=== PATIENT | female | born 1945 | race African-American/Black ===

== ENCOUNTER 2024-02-26 13:27 | Outpatient (REF) | payer OTHER, SELFPAY ==
[2024-02-26 14:02] LABS: MANUAL DIFF FLAG NO
[2024-02-26 14:14] LABS: Basophils Percent Auto 0.4 % (0-2); Eosinophils Absolute Auto 0.2 X10*3/uL (0.0-0.4); Eosinophils Percent Auto 1.7 % (0-4); Hematocrit 40.5 % (37.0-47.0); Hemoglobin 13.2 g/dl (12.0-16.0); Imm Gran Abs Auto 0.05 X10*3/uL (0.00-0.03); Imm Gran Pct Auto 0.5 % (0.0-0.4); Lymphocytes Absolute Auto 2.1 X10*3/uL (1.2-4.9); Mean Corpuscular HGB Conc 32.6 g/dl (31.0-35.0); Mean Corpuscular Hemoglobin 28.3 pg (27.0-33.0); Mean Corpuscular Volume 86.7 fL (80.0-98.0); Mean Platelet Volume 9.1 fL (9.4-12.3); Monocytes Absolute Auto 0.8 X10*3/uL (0.1-1.2); Monocytes Percent Auto 7.3 % (2-11); Neutrophils Absolute Auto 7.3 x10*3/uL (2.0-8.3); Neutrophils Percent Auto 70.1 % (45-73); Platelet Count 288 X10*3/uL (160-400); Red Blood Count 4.67 X10*6/uL (4.20-5.50); Red Cell Distribution Width 13.3 % (11.0-16.0); White Blood Count 10.5 X10*3/uL (4.8-10.8)
[2024-02-26 14:48] LABS: Anion Gap 15 (12-20); Blood Urea Nitrogen 22 mg/dL (9-16); Calcium 10.5 mg/dL (8.4-10.2); Carbon Dioxide 27 mmol/L (22-29); Chloride 103 mmol/L (96-108); Estimated Glomerular Filt Rate 31; Glucose Random 127 mg/dL (60-115); Potassium 3.8 mmol/L (3.3-5.1); Sodium 141 mmol/L (135-145)
[2024-02-26 15:19] LABS: Vitamin B12 627 pg/mL (200-900)
== END 2024-02-26 13:28 | disposition home or self-care (01) ==
LOC: HO.LAB 13:27
PROVIDERS: Visit Provider Psychiatry & Neurology Neurology
DX: I63.9 Cerebral infarction, unspecified (principal)
CPT/HCPCS: 36415; 80048; 82607; 82746; 84443; 85025

== ENCOUNTER 2025-03-23 13:57 | Outpatient (AMB) | payer OTHER, SELFPAY ==
--- OUTSIDE RECORDS SUMMARY | 2024-08-14 08:37 | XMS_ITS | Continuity of Care Document ---
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 mellitus type 2 Immunizations Vaccine Date Status Comments COVID-19 Pfizer unknown Source: [facility] Fluzone High-Dose administered Source: New Immunization Record COVID-19 Pfizer administered Source: [facility] COVID-19 (Pfizer) administered Source: Ot her Provider Fluzone High-Dose administered Source: New Immunization Record Influenza, high dose, injectable, split virus, preservative free, Fluzone High-Dose administered Source: New Immuniz ation Record Influenza, injectable, quadrivalent, preservative free, split virus, 3 years and older, Fluzone Quad 2017-2018Y administered Source: N ew Immunization Record Influenza, high dose, injectable, split virus, preservative free, Fluzone High-Dose administered Source: New Immuniza tion Record Influenza, high dose, injectable, split virus, preservative free, Fluzone High-Dose administered Source: New Immuniza tion Record Pneumococcal polysaccharide PPV23 administered Source: New Immuniza tion Record Tdap administered Source: New Imm unization Record Zoster administered Source: New Imm unization Record Influenza, injectable, split virus, preservative free, 3 years and older Afluria 2 -2015 administered Source: New Immuniza tion Record pneumococcal conjugate vacci ne, 13 valent administered Source: New Immuniza tion Record Flu (split) (3 yrs or older) administered Note: stated had for 2013 in ; Source: Source Unspecified PPV administered Source: Other P rovider Payers Payer name Insurance type Covered libertarian ID Jeff gupta(s) [facility] Plan 16 [id number] [facility] 16 [id number] [facility] 16 [id number] [facility] 16 [id number] [facility] 16 [id number] [facility] 16 [id number] [facility] 16 [id number] [facility] 16 [id number] [facility] 16 [id number] [facility] 16 [id number] [facility] 16 [id number] [facility] 16 [id number] Social History Type Description Quantity Date Captured Comments Alcohol Use Details Unknown Caffeine Use Details Unknown Tobacco Use Status No Information Smoking Status No Information Sex Female Chief Complaint And Reason For Visit No Information Plan Of Treatment Date Type Action Status Goal Eye Exam. Due on due Goal DEXA Scan. Due on due Goal GFR. Due on due Goal Foot exam. Due on due Goal Dilated eye exam. Due on Nov due Goal H&P. Due on due Goal Dental Exam. Due on due Goal Eye Exam. Due on due Goal Dilated eye exam. Due on Oct due Goal Foot exam. Due on 5 due Goal GFR. Due on due Goal Dental Exam. Due on due Goal DEXA Scan. Due on due Goal DEXA Scan. Due on due Goal Dilated eye exam. Due on Oct due Goal Eye Exam. Due on due Goal Dental Exam. Due on due Goal Foot exam. Due on due Goal GFR. Due on due Goal GFR. Due on due Goal Dental Exam. Due on due Goal DEXA Scan. Due on due Goal Eye Exam. Due on due Goal Dilated eye exam. Due on Oct due Goal Foot exam. Due on due Goal Eye Exam. Due on due Goal GFR. Due on due Goal DEXA Scan. Due on due Goal Dilated eye exam. Due on Jun due Goal Dental Exam. Due on due Goal Foot exam. Due on due Goal DEXA Scan. Due on due Goal GFR. Due on due Goal Foot exam. Due on due Goal Dilated eye exam. Due on May due Goal Eye Exam. Due on due Goal Dental Exam. Due on due Goal GFR. Due on due Goal Eye Exam. Due on due Goal Foot exam. Due on due Goal DEXA Scan. Due on due Goal Dilated eye exam. Due on May due Goal Dental Exam. Due on due Goal Eye Exam. Due on due Goal DEXA Scan. Due on due Goal GFR. Due on due Goal Dilated eye exam. Due on May due Goal Foot exam. Due on due Goal Dental Exam. Due on due Goal DEXA Scan. Due on due Goal Foot exam. Due on due Goal GFR. Due on due Goal Dental Exam. Due on due Goal Dilated eye exam. Due on Apr due Goal Eye Exam. Due on due Goal GFR. Due on due Goal Eye Exam. Due on due Goal Dental Exam. Due on due Goal DEXA Scan. Due on due Goal Dilated eye exam. Due on Apr due Goal Foot exam. Due on due Goal Foot exam. Due on due Goal DEXA Scan. Due on due Goal Dilated eye exam. Due on Apr due Goal Eye Exam. Due on due Goal Dental Exam. Due on due Goal GFR. Due on due Goal GFR. Due on due Goal Foot exam. Due on due Goal Dental Exam. Due on due Goal Eye Exam. Due on due Goal DEXA Scan. Due on due Goal Dilated eye exam. Due on Apr due Goal Dilated eye exam. Due on Apr due Goal Eye Exam. Due on due Goal Foot exam. Due on due Goal DEXA Scan. Due on due Goal GFR. Due on due Goal Dental Exam. Due on due Goal Foot exam. Due on due Goal Dental Exam. Due on due Goal GFR. Due on due Goal Eye Exam. Due on due Goal Dilated eye exam. Due on Apr due Goal DEXA Scan. Due on due Goal Colonoscopy. Due on due Goal Foot exam. Due on due Goal Eye Exam. Due on due Goal DEXA Scan. Due on due Goal H&P. Due on due Goal GFR. Due on due Goal Dental Exam. Due on due Goal Dilated eye exam. Due on Mar due Goal Dilated eye exam. Due on Jan due Goal DEXA Scan. Due on due Goal GFR. Due on due Goal Colonoscopy. Due on due Goal Foot exam. Due on due Goal Dental Exam. Due on due Goal Eye Exam. Due on due Goal H&P. Due on due Goal Dilated eye exam. Due on Jan due Goal Foot exam. Due on due Goal GFR. Due on due Goal Colonoscopy. Due on due Goal Dental Exam. Due on due Goal H&P. Due on due Goal DEXA Scan. Due on due Goal Eye Exam. Due on due Goal GFR. Due on due Goal Colonoscopy. Due on due Goal Dilated eye exam. Due on Jan due Goal Eye Exam. Due on due Goal Foot exam. Due on due Goal Dental Exam. Due on due Goal H&P. Due on due Goal DEXA Scan. Due on due Goal Eye Exam. Due on due Goal DEXA Scan. Due on due Goal H&P. Due on due Goal Colonoscopy. Due on due Goal GFR. Due on due Goal Foot exam. Due on due Goal Dental Exam. Due on due Goal Dilated eye exam. Due on Jan due Goal GFR. Due on due Goal H&P. Due on due Goal Dental Exam. Due on due Goal Eye Exam. Due on due Goal Foot exam. Due on due Goal Colonoscopy. Due on due Goal Dilated eye exam. Due on Jan due Goal DEXA Scan. Due on due Goal Colonoscopy. Due on due Goal Eye Exam. Due on due Goal Influenza vaccine. Due on due Goal Foot exam. Due on due Goal GFR. Due on due Goal Dental Exam. Due on due Goal Dilated eye exam. Due on Dec due Goal DEXA Scan. Due on due Goal H&P. Due on due Goal Dilated eye exam. Due on Dec due Goal DEXA Scan. Due on due Goal GFR. Due on due Goal Colonoscopy. Due on due Goal Dental Exam. Due on due Goal Foot exam. Due on due Goal Eye Exam. Due on due Goal H&P. Due on due Goal Dilated eye exam. Due on Dec due Goal Foot exam. Due on due Goal Influenza vaccine. Due on due Goal GFR. Due on due Goal Dental Exam. Due on due Goal Eye Exam. Due on due Goal H&P. Due on due Goal Colonoscopy. Due on due Goal DEXA Scan. Due on due Goal H&P. Due on due Goal Dental Exam. Due on due Goal Influenza vaccine. Due on due Goal Foot exam. Due on due Goal Eye Exam. Due on due Goal GFR. Due on due Goal Dilated eye exam. Due on Nov due Goal DEXA Scan. Due on due Goal GFR. Due on due Goal Influenza vaccine. Due on due Goal Dental Exam. Due on due Goal Foot exam. Due on due Goal H&P. Due on due Goal Dilated eye exam. Due on Nov due Goal DEXA Scan. Due on due Goal Eye Exam. Due on due Goal H&P. Due on due Goal Eye Exam. Due on due Goal Dental Exam. Due on due Goal Dilated eye exam. Due on Nov due Goal DEXA Scan. Due on due Goal Foot exam. Due on due Goal Influenza vaccine. Due on due Goal GFR. Due on due Goal Foot exam. Due on due Goal Influenza vaccine. Due on due Goal DEXA Scan. Due on 4 due Goal Eye Exam. Due on due Goal Dilated eye exam. Due on Oct due Goal H&P. Due on due Goal Dental Exam. Due on due Goal GFR. Due on due Goal Dental Exam. Due on due Goal Eye Exam. Due on due Goal Foot exam. Due on due Goal Dilated eye exam. Due on Oct due Goal H&P. Due on due Goal GFR. Due on due Goal DEXA Scan. Due on 4 due Goal Influenza vaccine. Due on due Goal GFR. Due on due Goal Influenza vaccine. Due on due Goal Dilated eye exam. Due on Sep due Goal Foot exam. Due on due Goal Eye Exam. Due on due Goal Dental Exam. Due on due Goal H&P. Due on due Goal DEXA Scan. Due on 4 due Goal Dental Exam. Due on due Goal GFR. Due on due Goal H&P. Due on due Goal Foot exam. Due on 5 due Goal Eye Exam. Due on due Goal DEXA Scan. Due on 4 due Goal Dilated eye exam. Due on Sep due Goal Influenza vaccine. Due on due Goal Dilated eye exam. Due on Sep due Goal DEXA Scan. Due on due Goal Influenza vaccine. Due on due Goal Dental Exam. Due on due Goal Eye Exam. Due on due Goal GFR. Due on due Goal H&P. Due on due Goal Foot exam. Due on 5 due Goal Influenza vaccine. Due on due Goal Dental Exam. Due on due Goal Eye Exam. Due on due Goal DEXA Scan. Due on 4 due Goal GFR. Due on due Goal H&P. Due on due Goal Foot exam. Due on 5 due Goal Dilated eye exam. Due on Sep due Goal Foot exam. Due on 5 due Goal Dental Exam. Due on due Goal H&P. Due on due Goal Influenza vaccine. Due on due Goal Dilated eye exam. Due on Sep due Goal DEXA Scan. Due on 4 due Goal Eye Exam. Due on due Goal GFR. Due on due Goal Foot exam. Due on 5 due Goal Dilated eye exam. Due on May due Goal Eye Exam. Due on due Goal Dental Exam. Due on due Goal GFR. Due on due Goal H&P. Due on due Goal DEXA Scan. Due on due Goal Influenza vaccine. Due on due Goal Dental Exam. Due on due Goal Eye Exam. Due on due Goal H&P. Due on due Goal Dilated eye exam. Due on May due Goal GFR. Due on due Goal DEXA Scan. Due on due Goal Foot exam. Due on due Goal Influenza vaccine. Due on due Goal Influenza vaccine. Due on due Goal Foot exam. Due on due Goal H&P. Due on due Goal Dilated eye exam. Due on Apr due Goal Dental Exam. Due on 019 due Goal DEXA Scan. Due on due Goal Eye Exam. Due on due Goal Urine microalbumin. Due on due Goal GFR. Due on due Goal DEXA Scan. Due on due Goal Dilated eye exam. Due on Mar due Goal Influenza vaccine. Due on due Goal Dental Exam. Due on due Goal Urine microalbumin. Due on due Goal Foot exam. Due on due Goal Eye Exam. Due on due Goal H&P. Due on due Goal GFR. Due on due Goal GFR. Due on due Goal Foot exam. Due on due Goal Influenza vaccine. Due on due Goal Dental Exam. Due on due Goal Eye Exam. Due on due Goal H&P. Due on due Goal Dilated eye exam. Due on Feb due Goal Urine microalbumin. Due on due Goal DEXA Scan. Due on due Goal Dental Exam. Due on due Goal Dilated eye exam. Due on Oct due Goal Foot exam. Due on due Goal Eye Exam. Due on due Goal GFR. Due on due Goal H&P. Due on due Goal Urine microalbumin. Due on due Goal DEXA Scan. Due on due Goal Urine microalbumin. Due on due Goal Dilated eye exam. Due on Sep due Goal DEXA Scan. Due on due Goal Foot exam. Due on due Goal H&P. Due on due Goal Eye Exam. Due on due Goal GFR. Due on due Goal Dental Exam. Due on due Goal GFR. Due on due Goal Dental Exam. Due on due Goal DEXA Scan. Due on due Goal H&P. Due on due Goal Foot exam. Due on due Goal Urine microalbumin. Due on due Goal Eye Exam. Due on due Goal Dilated eye exam. Due on Jul due Goal GFR. Due on due Goal H&P. Due on due Goal DEXA Scan. Due on due Goal Dilated eye exam. Due on Jul due Goal Eye Exam. Due on due Goal Urine microalbumin. Due on due Goal Foot exam. Due on due Goal Dental Exam. Due on due Goal Foot exam. Due on due Goal H&P. Due on due Goal Eye Exam. Due on due Goal Urine microalbumin. Due on due Goal Dilated eye exam. Due on Jun due Goal GFR. Due on due Goal DEXA Scan. Due on due Goal Dental Exam. Due on due Goal Eye Exam. Due on due Goal H&P. Due on due Goal Dilated eye exam. Due on Jun due Goal Foot exam. Due on due Goal GFR. Due on due Goal DEXA Scan. Due on due Goal Urine microalbumin. Due on due Goal Dental Exam. Due on due Goal Urine microalbumin. Due on due Goal GFR. Due on due Goal Foot exam. Due on due Goal Dilated eye exam. Due on Jun due Goal DEXA Scan. Due on due Goal H&P. Due on due Goal Dental Exam. Due on due Goal Eye Exam. Due on due Goal GFR. Due on due Goal H&P. Due on due Goal Urine microalbumin. Due on due Goal Dilated eye exam. Due on May due Goal Foot exam. Due on due Goal Eye Exam. Due on due Goal Dental Exam. Due on 018 due Goal DEXA Scan. Due on due Goal H&P. Due on due Goal Dental Exam. Due on 018 due Goal Dilated eye exam. Due on May due Goal DEXA Scan. Due on due Goal Foot exam. Due on due Goal Urine microalbumin. Due on due Goal Eye Exam. Due on due Goal GFR. Due on due Goal Eye Exam. Due on due Goal DEXA Scan. Due on due Goal Dilated eye exam. Due on May due Goal GFR. Due on due Goal Dental Exam. Due on due Goal Foot exam. Due on due Goal H&P. Due on due Goal Dental Exam. Due on due Goal GFR. Due on due Goal Dilated eye exam. Due on Apr due Goal H&P. Due on due Goal Foot exam. Due on due Goal Eye Exam. Due on due Goal DEXA Scan. Due on due Goal Dilated eye exam. Due on Apr due Goal GFR. Due on due Goal DEXA Scan. Due on due Goal Foot exam. Due on due Goal Eye Exam. Due on due Goal Dental Exam. Due on due Goal H&P. Due on due Goal Eye Exam. Due on due Goal GFR. Due on due Goal Dilated eye exam. Due on Apr due Goal Foot exam. Due on due Goal Dental Exam. Due on due Goal H&P. Due on due Goal DEXA Scan. Due on due Goal Dilated eye exam. Due on Apr due Goal Foot exam. Due on due Goal DEXA Scan. Due on due Goal Dental Exam. Due on due Goal H&P. Due on due Goal Eye Exam. Due on due Goal GFR. Due on due Goal GFR. Due on due Goal Dilated eye exam. Due on Apr due Goal Eye Exam. Due on due Goal H&P. Due on due Goal Foot exam. Due on due Goal DEXA Scan. Due on due Goal Dental Exam. Due on due Goal GFR. Due on due Goal H&P. Due on due Goal Eye Exam. Due on due Goal DEXA Scan. Due on due Goal Foot exam. Due on due Goal Dilated eye exam. Due on Mar due Goal Dental Exam. Due on 017 due Goal DEXA Scan. Due on due Goal H&P. Due on due Goal GFR. Due on due Goal Dilated eye exam. Due on Feb due Goal Foot exam. Due on due Goal Eye Exam. Due on due Goal Dental Exam. Due on due Goal H&P. Due on due Goal Dilated eye exam. Due on Feb due Goal Dental Exam. Due on due Goal Eye Exam. Due on due Goal Foot exam. Due on due Goal DEXA Scan. Due on due Goal GFR. Due on due Goal Foot exam. Due on due Goal Dilated eye exam. Due on Feb due Goal GFR. Due on due Goal Dental Exam. Due on due Goal H&P. Due on due Goal DEXA Scan. Due on due Goal Eye Exam. Due on due Goal Dental Exam. Due on due Goal Dilated eye exam. Due on Nov due Goal Eye Exam. Due on due Goal H&P. Due on due Goal DEXA Scan. Due on due Goal GFR. Due on due Goal Foot exam. Due on due Goal Dilated eye exam. Due on Oct due Goal Dental Exam. Due on due Goal DEXA Scan. Due on 4 due Goal Foot exam. Due on due Goal Eye Exam. Due on due Goal GFR. Due on due Goal H&P. Due on due Goal H&P. Due on due Goal Eye Exam. Due on due Goal Foot exam. Due on due Goal Dental Exam. Due on due Goal DEXA Scan. Due on due Goal GFR. Due on due Goal Dilated eye exam. Due on Oct due Goal Foot exam. Due on due Goal Dilated eye exam. Due on August due Goal GFR. Due on due Goal DEXA Scan. Due on due Goal H&P. Due on due Goal Eye Exam. Due on due Goal Dental Exam. Due on due Goal Dental Exam. Due on due Goal Eye Exam. Due on due Goal DEXA Scan. Due on due Goal H&P. Due on due Goal Dilated eye exam. Due on Jun due Goal GFR. Due on due Goal Foot exam. Due on due Goal Dilated eye exam. Due on May due Goal Dental Exam. Due on due Goal Foot exam. Due on due Goal Eye Exam. Due on due Goal GFR. Due on due Goal DEXA Scan. Due on due Goal H&P. Due on due Goal Eye Exam. Due on due Goal Dilated eye exam. Due on May due Goal Foot exam. Due on due Goal GFR. Due on due Goal H&P. Due on due Goal Dental Exam. Due on due Goal DEXA Scan. Due on due Goal Dilated eye exam. Due on May due Goal GFR. Due on due Goal Eye Exam. Due on due Goal Foot exam. Due on due Goal H&P. Due on due Goal DEXA Scan. Due on due Goal Dental Exam. Due on due Goal Eye Exam. Due on due Goal H&P. Due on due Goal DEXA Scan. Due on due Goal Dental Exam. Due on due Goal Dilated eye exam. Due on Apr due Goal GFR. Due on due Goal Foot exam. Due on due Goal Dilated eye exam. Due on Apr due Goal Eye Exam. Due on due Goal Dental Exam. Due on due Goal DEXA Scan. Due on due Goal GFR. Due on due Goal Foot exam. Due on due Goal H&P. Due on due Goal H&P. Due on due Goal Dilated eye exam. Due on Apr due Goal Foot exam. Due on due Goal GFR. Due on due Goal Eye Exam. Due on due Goal Dental Exam. Due on due Goal DEXA Scan. Due on due Goal GFR. Due on due Goal Eye Exam. Due on due Goal Dilated eye exam. Due on Feb due Goal Foot exam. Due on due Goal Dental Exam. Due on 016 due Goal H&P. Due on due Goal DEXA Scan. Due on due Goal Dilated eye exam. Due on Nov due Goal Foot exam. Due on due Goal GFR. Due on due Goal H&P. Due on due Goal Eye Exam. Due on due Goal Dental Exam. Due on 016 due Goal DEXA Scan. Due on due Goal H&P. Due on due Goal Eye Exam. Due on due Goal Dilated eye exam. Due on August due Goal GFR. Due on due Goal Foot exam. Due on due Goal DEXA Scan. Due on due Goal Urine microalbumin. Due on due Goal Dental Exam. Due on due Goal Dental Exam. Due on due Goal Urine microalbumin. Due on A due Goal Foot exam. Due on due Goal H&P. Due on due Goal DEXA Scan. Due on due Goal Eye Exam. Due on due Goal Dilated eye exam. Due on Jul due Goal GFR. Due on due Goal DEXA Scan. Due on due Goal Urine microalbumin. Due on A due Goal Dental Exam. Due on due Goal GFR. Due on due Goal Foot exam. Due on due Goal Dilated eye exam. Due on Jul due Goal Eye Exam. Due on due Goal H&P. Due on due Goal Dilated eye exam. Due on Jul due Goal Foot exam. Due on due Goal Eye Exam. Due on due Goal GFR. Due on due Goal Dental Exam. Due on due Goal Urine microalbumin. Due on A due Goal DEXA Scan. Due on due Goal Dilated eye exam. Due on May due Goal GFR. Due on due Goal Urine microalbumin. Due on due Goal DEXA Scan. Due on due Goal Dental Exam. Due on due Goal Foot exam. Due on due Goal Eye Exam. Due on due Goal Eye Exam. Due on due Goal Foot exam. Due on due Goal Dental Exam. Due on due Goal Urine microalbumin. Due on due Goal GFR. Due on due Goal Dilated eye exam. Due on May due Goal DEXA Scan. Due on due Goal Foot exam. Due on due Goal GFR. Due on due Goal Eye Exam. Due on due Goal DEXA Scan. Due on due Goal Dental Exam. Due on 016 due Goal Dilated eye exam. Due on May due Goal Urine microalbumin. Due on due Goal Dental Exam. Due on 016 due Goal Urine microalbumin. Due on due Goal Eye Exam. Due on due Goal GFR. Due on due Goal Foot exam. Due on due Goal Dilated eye exam. Due on May due Goal DEXA Scan. Due on due Goal Dilated eye exam. Due on Mar due Goal DEXA Scan. Due on due Goal Foot exam. Due on due Goal Urine microalbumin. Due on due Goal GFR. Due on due Goal Eye Exam. Due on due Goal GFR. Due on due Goal Td vaccine. Due on due Goal DEXA Scan. Due on due Goal Dilated eye exam. Due on Feb due Goal Eye Exam. Due on due Goal Urine microalbumin. Due on due Goal Foot exam. Due on due Goal DEXA Scan. Due on due Goal GFR. Due on due Goal Urine microalbumin. Due on due Goal Foot exam. Due on due Goal Eye Exam. Due on due Goal Dilated eye exam. Due on Dec due Goal Td vaccine. Due on due Goal DEXA Scan. Due on due Goal Eye Exam. Due on due Goal GFR. Due on due Goal Urine microalbumin. Due on due Goal Td vaccine. Due on due Goal Dilated eye exam. Due on Dec due Goal Foot exam. Due on due Goal Urine microalbumin. Due on A due Goal DEXA Scan. Due on due Goal Td vaccine. Due on due Goal Eye Exam. Due on due Goal Foot exam. Due on due Goal GFR. Due on due Goal Dilated eye exam. Due on Nov due Goal GFR. Due on due Goal Urine microalbumin. Due on A due Goal Td vaccine. Due on due Goal Eye Exam. Due on due Goal Dilated eye exam. Due on Nov due Goal DEXA Scan. Due on due Goal Foot exam. Due on due Goal Dilated eye exam. Due on Oct due Goal GFR. Due on due Goal Foot exam. Due on due Goal Urine microalbumin. Due on due Goal Td vaccine. Due on due Goal DEXA Scan. Due on due Goal Eye Exam. Due on due Goal Diabetes screening due Goal DEXA Scan. Due on due Goal Foot exam. Due on due Goal GFR. Due on due Goal Dilated eye exam. Due on Oct due Goal Td vaccine. Due on due Goal Urine microalbumin. Due on due Goal Eye Exam. Due on due Goal Td vaccine. Due on due Goal Eye Exam. Due on due Goal GFR. Due on due Goal Dilated eye exam. Due on Oct due Goal Urine microalbumin. Due on due Goal DEXA Scan. Due on due Goal Foot exam. Due on due Goal Hemoglobin A1C. Due on due Goal Dilated eye exam. Due on Oct due Goal Urine microalbumin. Due on due Goal DEXA Scan. Due on due Goal GFR. Due on due Goal Tdap. Due on due Goal Foot exam. Due on due Goal Foot exam. Due on due Goal Urine microalbumin. Due on due Goal Dilated eye exam. Due on Oct due Goal GFR. Due on due Goal DEXA Scan. Due on due Goal Tdap. Due on due Goal Foot exam. Due on due Goal Dilated eye exam. Due on Sep due Goal Tdap. Due on due Goal GFR. Due on due Goal Urine microalbumin. Due on due Goal DEXA Scan. Due on due Goal Hemoglobin A1C. Due on due Goal Hemoglobin A1C. Due on due Goal DEXA Scan. Due on due Goal Tdap. Due on due Goal Dilated eye exam. Due on Sep due Goal Urine microalbumin. Due on due Goal Foot exam. Due on due Goal GFR. Due on due Goal Hemoglobin A1C. Due on due Goal GFR. Due on due Goal Tdap. Due on due Goal PPV-23 due Goal Foot exam. Due on due Goal DEXA Scan. Due on due Goal Dilated eye exam. Due on Sep due Goal Urine microalbumin. Due on due Goal DEXA Scan. Due on due Goal Tdap. Due on due Goal Urine microalbumin. Due on due Goal Dilated eye exam. Due on Sep due Goal GFR. Due on due Goal Foot exam. Due on due Goal Hemoglobin A1C. Due on due Goal Foot exam. Due on due Goal GFR. Due on due Goal Hemoglobin A1C. Due on due Goal Urine microalbumin. Due on due Goal DEXA Scan. Due on due Goal Tdap. Due on due Goal Dilated eye exam. Due on Sep due Goal GFR. Due on due Goal Hemoglobin A1C. Due on due Goal Urine microalbumin. Due on due Goal DEXA Scan. Due on due Goal Dilated eye exam. Due on August due Goal Tdap. Due on due Goal Dilated eye exam. Due on August due Goal GFR. Due on due Goal Urine microalbumin. Due on due Goal Hemoglobin A1C. Due on due Goal DEXA Scan. Due on due Goal Tdap. Due on due Goal Urine microalbumin. Due on due Goal Hemoglobin A1C. Due on due Goal DEXA Scan. Due on due Goal Tdap. Due on due Goal Dilated eye exam. Due on August due Goal GFR. Due on due Goal Hemoglobin A1C. Due on due Goal GFR. Due on due Goal DEXA Scan. Due on due Goal Urine microalbumin. Due on due Goal Tdap. Due on due Goal Dilated eye exam. Due on August due Goal Dilated eye exam. Due on August due Goal GFR. Due on due Goal Urine microalbumin. Due on due Goal Tdap. Due on due Goal DEXA Scan. Due on due Goal Dilated eye exam. Due on Jul due Goal Tdap. Due on due Goal Urine microalbumin. Due on A due Goal Hemoglobin A1C. Due on due Goal GFR. Due on due Goal DEXA Scan. Due on due Goal Urine microalbumin. Due on A due Goal Hemoglobin A1C. Due on due Goal GFR. Due on due Goal Tdap. Due on due Goal DEXA Scan. Due on due Goal Dilated eye exam. Due on Jul due Goal DEXA Scan. Due on due Goal Tdap. Due on due Goal GFR. Due on due Goal Urine microalbumin. Due on A due Goal Dilated eye exam. Due on Jul due Goal Hemoglobin A1C. Due on due Goal DEXA Scan. Due on due Goal Hemoglobin A1C. Due on due Goal Urine microalbumin. Due on due Goal Tdap. Due on due Goal GFR. Due on due Goal Dilated eye exam. Due on Jun due Goal DEXA Scan. Due on due Goal Urine microalbumin. Due on due Goal GFR. Due on due Goal Dilated eye exam. Due on Jun due Goal Tdap. Due on due Goal Pneumococcal vaccine due Goal Hemoglobin A1C. Due on due Goal DEXA Scan. Due on due Goal Tdap. Due on due Goal Dilated eye exam. Due on Jun due Goal Urine microalbumin. Due on due Goal Hemoglobin A1C. Due on due Goal Pneumococcal vaccine due Goal GFR. Due on due Goal Dilated eye exam. Due on Jun due Goal DEXA Scan. Due on due Goal Urine microalbumin. Due on due Goal GFR. Due on due Goal Tdap. Due on due Goal Hemoglobin A1C. Due on due Referral Ordered: Referrals: Pain Medicine. 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 Evaluate and treat ordered Referral Ordered: COLONOSCOPY AND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 Positional Vertigo. Has a recorded h/o benign positional vertigo. MRI negative for CVA. She has started to work with our therapy department.No medications stopped or added.Today the ppt appears well. ALready seen by therapy this morning. No new episodes sof dizziness since discharge reported. dizziness, elevated BP 72 year o ld female seen today in the clinic for dizziness this morning with nausea, no vomiting. Has not taken her meds this morning because she thought shes might not keep them down. The ppt's daughter and granddaughter are here with ppt at this visit.ROS:Denies any new pain. Recent steroid injection for her spine with good efect.Apprtite is less today d/t the nausea.Denies any headache. No pain in the eyes, some light sensitivity noted. No numbness or tingling of the face, jaw or extremities.Does not feel that the roomis spinning. Noworsening of dizziness with movement of her eyes or repositioning of he headNo report of shortness of breath or wheezing. No runny nose or tearing from the eyes. No sneezing. or sore throat. No difficulty swallowing. No change in phonation.No chest painor pressure.No abdominal pain. Has occasional nausea, no vomiting. No diarrhea or constipation.No new onset of incontinence. No reported falls.No swelling in the legs or ankles.PE:VS taken by poultry scalder-those values placed in the chart. Retook the BP on the left arm sitting with 178/92NAD. Alert, pleasant and cooperative. Makes eye contact and responses are consistent with the interview and exam. Color is good. Hygiene is apprrpriate.Atraumatic facies. CN grossly intact. Smile is symmetrical.Eyes are symmetrical. SClera are without injection, anicteric. Conjunctivae are pink, no discharge. EOMs ar eintact. Pupils are equally repsonsive to light bilaterally. No NystagmusOral mucosa is moist, no lesions. Tongue is midline, no tremors. Pharynx is without redness, no exudates.The heart rate and rhythm are regular. No murmus noted. Carotid pulses auscultated, no bruits noted.Respirations are nornal. No accessory muscle use is noted. Breath sounds are clear to auscultation in all weber. No crackles or wheezes are noted.The abdomen is soft, non-tender, non-distended. No plapble masses. Bowel sounds are present, no bruits auscultated.No LE edema. Peripheral pulses are palpableUsing a cane. Gait is slightly unsteady when first standing up. Annual 72 year old jennifer le seen today for her Annual evaluation and review of Chronic Conditions. Ms. العراقي resides independently in the community in [place], [place]. She enrolled with [employer] in May of 2014. She attend the day program onT.Anisha has not accessed the ED, no hospitalizations and no reported falls inthe past 6 months.She has a Pain Clinic Appointment 06/09/2018 to evaluate benefit of the steroid injection for her backSeen by Dr. Del Valle 07/2017, will need annual evaluation, referral placed.Was re-evaluated by [facility] for C-PAP equipment and mask fit. Reprots that she is now using the C-PAP at night with benefitSeen by [facility] for dental 12/18/17, Has missing dentition, but is not wanting full extraction for dentures.Last seen by Audiology 2014. Has bilateral hearing aids, but does not always wear them.Immunizations on file include:Influenza vaccine administered 01/30/2018Pneumococcal series is completeTdap administered 04/07/2015Zostrix vaccine administered 03/17/2015Healthcare proxy completed 05/12/2014 lists her son Vazquez العراقي as her primery healthcare agent and her sister Allison Roman as her alternate healthcare proxyMA MOLST document dated 11/21/2017 indicates preferences for Full Code status with short trials of ventilation, dialysis, artificial nutritionand artificial hydration.Goals for this next 6 months include contiued stabilization of her depression and a goal of pain control between 3-10 fo rher back pain. Follow Up of depression This is a follow up visit. The date of the initial visit for this episode was 02/27/2018. The first episode occurred in pre-. The symptoms occur intermittently. Related symptoms are fairly controlled. There is improvement of initial symptoms. There is no continuation of initial symptoms or worsening of previously reported symptoms. The patient reports functioning as not difficult at all. The patient presents with depressed mood, difficulty concentrating, diminished interest or pleasure and racing thoughts but denies anxious/fearful thoughts, compulsive thoughts, decreased need for sleep, difficulty falling asleep, difficulty staying asleep, easily startled, excessive worry, fatigue, feelings of guilt, feelings of invulnerability, increased energy, hallucinations,decreased libido, increased libido, loss of appetite, paranoia, poor judgment, restlessness or thoughts of or suicide. The patient's risk factors include chronic illness, of a friend or loved one, family history of depression, financial worries and history of depression. The patient's risk factors exclude alcoholism, childhood abuse or neglect, drug abuse, family history of anxiety, family history of bipolar disorder, history of suicidal attempts, medications, recent childbirth, relationship problems, social isolation, unemployment and victim of abuse or violence. The Follow Up of depression is aggravated by conflict or stress and family concerns but not with alcohol use, drug use, lack of sleep, menstruation, social interactions, traumatic memories or winter season. The patient's relieving factors are medication (increased anti-depressant), sunlight, orthodox and interaction with family.The patient's symptoms are not relieved by alcohol, cessation of menses, drugs or exercise. The patient denies any chronic pain, headache, irritability, nausea, sweating, trembling, urinary frequency, vomiting and weight gain. Additional information: Ppt had had a of a sibling, one sibling [facility] and one with mental illness placed in a half-way. recent worsening depression 72 y ear old female seen in the clinic for self-reported increase in depressive symptoms.goldie was lying ont bed eyes closed when I entered the exam room.Repositions herself to a sitting positionDenies any SI/HI/AH/VHReports that a sister who lives [facility] has been hospitalized for medical and psychiatric concerns. Will now need permanent placement as the ppt's sister is unable to manage on her own [facility]. Last seen by ppt about 1 and a massiel years ago.Also mentions that she has some financial concerns, reluctant to discuss fully.Has agreed to see SWIs interested in increasing her current effexor dose Semi Annual 72 year old jennifer vera seen in the clinic for her Semi-Annual Evaluation and review of Chronic Conditions. Ms. العر[facility]قي [facility] [place]. She enrolled with [employer] in May 2014No ED visits, hospitalizations or falls in the past 6 months.She has been seen in f/u with [facility] for dental 05/29/2017. [place] dentition with multiple missing teeth. Not clear if ppt would want extraction of her remianing teeth to obtain dentures. She will let us know.Evaluated by Sleep clinic 10/2014-ppt is not interested in using a C-PAP machine or being evaluated again at this time.Sees Dr. Del Valle-have requested more recent notes.Seen at [facility] clinic. Last SI injectionon the right was 09/05/2017-needs f/u appointmentEvaluated by Audiology 09/2014-no need for hearing aids-barreto snot feel the need to pursue additonal evaluation at this time.Immunizations on record include:Influenza vaccine administered 01/17/2017Pneumococcal series is completeTdap administered 04/07/2015Zostrix administered 03/17/2015Health care proxy dated 05/12/2014 indicates that her son Vazquez العراقي is her primary healthcare agent and her sister Allison Roman is her alternate healthcare agent. [place] MOL document revised today. Preferences for future medical interventions are for Full Code Ststus with short term use of ventilatory support, artificial nutritionand artificial hydration. She would also want dialysis.Goals for the next 6 onth include remaining pain free so that she is functional and possible evaluation for dental care (including the possibility of dentures). f/u Patient comes to clinic for low back pain. She has had low back pain in the past. She developed pain within the past 4 or 5 days the weekend. There was no acute trauma or injury involved. The pain was initially severe and she needed to use a walker instead of her cane. She instituted rest, heat and added Naprosyn in addition to her Tylenol. She indicates that her pain has significantly improved since the episode began. She has not recently worked with physical therapy for back issues. Follow Up of back pain Annual 71 year old jennifer vera seen today in the clinic for her Annual Evaluation and review of Chronic Conditions. Ms. العراقي lives independently in the community in [place], [place]. SHe enrolled with [employer] in May 2014.There have been no ED visits, hospitalizations or reported falls inthe past 6 months.Seen in follow up with Dr. Del Valle for monitoring of visionAppointment with oral surgery 05/29/2017Immunizations on file include:Influenza vaccine administered 01/08/2017Pneumococcal series is completeTdp administered on 04/07/2015Zovirax administered 03/17/2015Healthcare proxy on file of 05/12/2014 indicates that Vazquez العراقي (son) is her primary healthcare agent and Allison Khan (dtr) is her alternate healthcare agent. [place] MOLST document dated 06/17/2014 indicates preferences for Full COde status. Second side in blank. We discussed [facility] intent and content of the MOLST form. Ppt was given a blank copy to take home and to review. We discussed dialysis, artificail nutrition and hydration as they might relate to her current health status and her reported goals of care. Will make a f/u appointment to discuss, review, answer questions and potential complete a new document in the next few weeks.Today, the ppt continue to reprot right hip pain and left shoylder pain. Has trialed OTC medications to manage the discomfort an d pain. Ppt is interested in pursuing a consult with the Pain clinic to explore the psosibility of steriod injections.Ppt goals include remaining independent in the community. SHe will acheive these goals by remaining as active in her ADLs as she is able. ain in her left wris t and left shoulder 71 year old female seen in clinic today for report of increased pain in the left wrist and left shoulder. She does not feel that they are related. No new injury. Also mentions that her right hip has times of increased pain. H/O steroid injection for the right hip at [place] with good effect.ROS:Descibes pain at worst at a 9/10; currently painis rated as a 4/10.No radiation of pain from the wrist, shoulder or hipDescribes pain as sharp and achyNo reported change or increased limitations to peform ADLs. No change in ambulatory status. Uses a cane (which she carries in her right hand)Denies any nubness or tingling of julián left wrist, shoulder or right hipNo loss of sensation of the left hand or arm. No loss of sensation of the right leg or foot.PE:NAD. Alert, cooperative. Responses appear to be appropriateLeft wrist and shoulder are not warm to palpation, no inflammation noted. Ppt is able to flex, extend, invert and fred the wrist. hand grasp is 4/5Left soulder is free of warmth or inflammation. ROM is equal and intact. Able to extend upper arms, place above her head, reach behind the head and the lower back without evidence of discomfort. No increase in pain report, no facial grimacingPalpation of the forarm, neck and upper back provide no evidence of tenderness or acute injury.Right hip and lower back are free of warmth, erythema, ecchymosis or inflammation. Negative straight leg raise. Chronic Conditions *See Chronic Conditions HPI Semi annual Anisha is seen i n the clinic for her semi annual assessment s/p [facility]. She attends 1x weekly on . She is independent with ambulation and ADLs. She uses a single point cane. She receives 1x weekly homemaking services, but no home health aide services. She has not had any falls, ED visits, hospitalizations or SNF stays over the last 6 months. She recently returned from a trip to [place] with her son, daughter in law and grandchildren. She was last seen in the clinic by my colleague approximately one month ago for c/o sudden onset back pain. She was treated with NSAIDs and muscle relaxers. She states that her back pain has significantly improved and is no longer problematic. She has intermittent bilateral knee pain secondary to OA, but states this is also manageable right now. She used a wheelchair on vacation to transport around the [place]. She was seen by orthopedics in October 2016 for R hip pain. She will schedule injections are her convenience. Hx of epistaxis, also improved. She had one minor nose bleed last week that was short in duration. Hx of NIDDM DM, diet controlled. She states she hasn't been checking her FSBS "as often as she should , 2-3x weekly at different times of the day. Overall, they have been pretty good with her highest reading at 130. Her A1c has been steadily decreasing since November 2015. Last A1c October 2016 was 6.6%. Anisha states that she has been more aware of her intake of sweets and is eating more fruit. She states she no longer buys treats such as ice cream to keep in her home. Last eye exam in EHR June 2015. Last dental exam 2014. Ppt reports that she recently lost a filling in her L upper quadrant last week and would like to see a dentist NATY. Due for repeat colonoscopy 2018. Last mammogram July 2016 was normal. Increased Back Pain Anisha comes to clinic with a chief complaint of low back pain which has been ongoing over the past 3 weeks. She has had 2 episodes during this time. Both episodes were brought on by bending down to pick something up. There was no other notable trauma. She reports that the back pain was initially very severe so that she was not able to get around at home and she considered the need for a walker. She chronically uses a cane for her hip pain. The low back pain was not associated with radiation, paresthesia, weakness or incontinence. She has been using Tylenol, a BenGay patch and naproxen. There has been some improvement over the past few days but the pain is still severe. She has had previous back pain but nowhere near as severe and debilitating. Follow Up of 4 month 4 month f/u Anisha comes to clinic for follow-up. She is feeling generally well. She is taking her medications as directed. She has no complaints of chest pain, shortness of breath or acute focal neurologic symptoms. In recent months she is performed blood work. In May A1c was 6.8. LDL was 1:30. Since then her statin was changed. She has been more mindful of her diet. BMP had a creatinine of 1.0. GFR was 65. Patient reports that she has an appointment today for her chronic right pain. She reports that the epistaxis that she previously complained about has stopped since discontinuing the Flonase. She indicates that her depression is okay but there is a situational component. She has not found that many things to do since leaving [place]. However, she was recently told about a social group that she might be interested in. Also she is interested in learning how to swim because her son has a pool Nosebleeds Ppt is seen in t he clinic for c/o moderate epistaxis that occurs daily and lasts about ten minutes, typically out of the L nare. She denies precipitating factors and states she can drip bright red blood throughout the day. She denies pain or known injury, She uses saline and flonase daily as well as clartin for poorly controlled seasonal allergies. Her allergic sx include sinus pressure and PND. No ocular symptoms, sneezing, cough or SOB.Her other primary complaint is ongoing, chronic, generalized pain secondary to OA. Her R hip is most bothersome, but she also experiences pain in the L shoulder, wrist and knee. Her R hip pain has steadily increased over the last couple of months and is aggravated by cold, rainy weather. She uses a single point cane for ambulation and does not have a hx of falls. She reports receiving a cortisone injection to R hip prior to joining 2 years ago and had relief for approximately 5 weeks. She is interested in another injection. She also uses BenGay patch with some relief. Medication list reviewed. Of note, she was recently starting on atorvastin 40mg in May 2016. Her last A1c was 6.8%, also in May. She is not currently receiving any treatment for DM. She is no longer taking meclizine. f/u depression f/u depressioin. last visit increased venlafaxine because of depressed mood. pt reports today that her mood is significantly improved. comfortable with current dose. no residual symptoms reported.last visit change her atorvastatin because ldl was 130, not at goal. toleratinglast visit a1c noted to be 6.8. taking meds annual annual eval and care planning. recent brbpr. suspected hemorrhoidal bldg. referral to surgery for eval and treat. otherwise no hosp, ed visits, snf stays, surg, falls, new meds, fxn decline or cognitive changes. continues to live in the community. updating chronic conditions. htn stable and no cp/sob/palp/pnd./orthopnea/suri. hyperlipidemia. ldl last 115. t/c changing statin b/c not at goal for dm.obesity. wt essentially unchangeddm with mild nephropathy. last a1c 7.1 in november. repeat a1c, cmp, flp and microalbumin. spot on left heel slightly numb.cva with mild cognitive deficit. stable. risk factors being addressed.murmur. not heard on auscultationckd. mild. gfr in 60's. no intervention requiredosa not using cpap. could not tolerate.gerd. not needing ppi. only tums prncolon polyp. due for colonoscopy 2019ddd/ss/oa manging with otc meds.bpv. not needing meclizinedepression. after cva. interested in d/c antidepressantinsomnia. zolpidem prn.[place] stablecataracts. s/p surg. no c/o. rectal bleeding f/u rectal bldg rectal bldg last visit. bleeding resolved that same day. no recurrent bldg. pt whooziness resolve that day also. no bm over the last 3 days. used otc laxative.pt also reports repeated epistaxis. this has been an ongoing issue. was rx'd nasal steroids in the past. rectal bldg rectal bldg firs t episode last week assoc w/ constipation. another episode today. bldg heavier today and assoc with some lightheadedness. both episodes self limited. pt did have rectal pain from the constipation. typically she has regular bm daily. fh colon cancer. utd w/ colonoscopy- h/o colon polyp and hemorrhoids. hip pain Anisha is in wit h c/o right hip pain but points to her right SI area and right buttock area. she reports a long hx of such pain and has dx of lumbar spinal stenosis and lumbar DJD. she denies any right leg or thigh pain. she notes some occ numbness in the left heel. she has a hx of hemorrhagic stroke in 2000 that she believes affected her memory and is frustrated that her memory remains a problem for her, although she does not believe it is any worse. she reports a hx of a steroid injection into the low back a few years ago at [facility]; she believes it was done under xray guidance. she also reports that she ran out of her [place] patches that she places daily on her right low back and that help her. Hip pain Ppt seen in the clinic for c/o chronic, 510 R posterior hip/low back pain. Prior to joining , she reports hx of xrays which showed OA to R hip. She reports difficulty sleeping at times due to pain. She typically treats her pain with topical analgesics, hot/cold treatments and tylenol ES. She reports hx of previous injection to R hip, after which she received 5 weeks or pain relief. She states this was the first time she was pain free in years. She is requesting a repeat injection. She lives alone in senior housing. She is not currently receiving PT/OT. She ambulates with a cane. She has not had any recent falls or injuries. Follow Up of nosejuaned Bala singh information: woke up yesterday AM w/blood crusted in both nostrils L>R. no active bleeding. had the same episode this am. PMH epistaxis off and on for the past year. Sleeps with the window cracked and heat low. Has Seasonal Allergies on Flonase, was also on Loratadine but did not refill it. Semi Annual Visit denies hospita l/ed visits, surgeries, falls, new meds, dx tests.saw Optho in Mar.no new complaints. cold symptoms Onset: sudden. T he patient describes the cough as moist and non-productive. The problem has improved. Context: allergies. There are no aggravating factors. Associated symptoms include cough, fatigue, nasal congestion and anorexia. Pertinent negatives include chills, dyspnea, dyspnea on exertion, epistaxis, fever, night sweats, pleuritic pain and wheezing. Additional information: started 5-6 days ago. feeling slightly better than yesterday. hip pain (comments) Seen in clin ic today for R low back pain. Pt repors that she always has some pain in that area but over this past weekend it was severe so that she could not participate in orthodox activities. She denies any falls but does report that she did a lot of walking last week and it started just after that. She has tried biofreeze, heat and extra strength Tylenol with minimal relief. Today it is a little bit better as she did nothing over the weekend. Has received cortisone shot for this in the past at [facility]. hip pain headaches headaches (comments) Seen in cli jad today for followup Headaches. Pt reported that the headaches have completely subsided since she stopped the rivastigamine which had been started earlier this year. At this time she does not want to trial any other meds for dementia but may consider it in the future. Purpose of meds was addressed and pt would like to think about it. She has had only one nose bleed since our last converstion. Little and nose bleed Little and nose bleed (comments) See n in clinic today after pt reports headaches that have been daily for the last 2-3 weeks. It is generally in her entire head and is occasionally associated the dizziness. She reports taking all of her meds as directed and has not missed any dosages. Pt reports that the Rivastigmine patch is the newest med and it occasionally itchy at the site. She denies any change in vision and has had no issues with weakness or sinus congetstion. She did have a nose bleed fromt he L nare earlier this week. It stopped in 10 min. right eye pain she had pain in her right eye over the weekend. she used some lubricants and anti-allergy drop and she feels fine to day. she says that she has intermittent pain in the right eye over the last several weeks/months. she is s/p bilateral cataract extractions last summer/fall. general i reviewed sherice jalloh [employer] assessment with her and went over her labs with her and gave her a copy at her request. all stable or normal. Annual (comments) Seen for shweta singh evaluation and care planning. Over the past 6 months she had bilat cataract surgery with good effect. She now only wears glasses for reading. She has had no hospitalizations and no SNF stays. She denies any functional or cognative changes. She continues to live independently in the community. Chronic Conditions *See Chronic Conditions HPI Annual Pre op cataract surg yun (comments) Seen in clinic today for pre op R cataract surgery to be done on 01/06 and then the L to be done on 01/17. She reports that she has been wearing the CPAP mask and it is making a difference in her sleep She does feel more rested in the am when she gets up. SHe denies any issues with fit or use. Pt does report that she was seen by opthlo and is scheduled for catarct surgery on 01/06. She states that they gave her eye drops that she will need to use and that she is able to put them in. She has had no ill effects from anesthesia in the past. She denies CP or SOB and has no fever, chills, cough or abd pain Pre op cataract surgery Sleep Apnea semi annual Pt seen for semi annual today. Has been a ppt for 6 months. Suffers from depression and some memory loss since hemmorrhagic stroke in 2000. Some continued hip pain and wondering about an injection. Also feeling as though her antidepressant needs to be increased. Sister recently and still has the memory of her last days in her mind which makes her feel down. Otherwise no new acute concerns. chronic conditions 1) Dementia, unspecified, in conditions classified elsewhere without behavioral disturbance (onset 06/19/2014; Stable.) 2) Obesity, unspecified (onset 06/19/2014; Stable.) 3) Insomnia, unspecified (onset 06/19/2014; Controlled.) 4) Undiagnosed cardiac murmurs (onset 06/20/2014; Stable.) 5) Osteoarthrosis, unspecified whether generalized or localized, involving unspecified site (onset 06/19/2014; Stable.) 6) Esophageal reflux (onset 06/19/2014; Controlled.) 7) Degeneration of lumbar or lumbosacral intervertebral disc (onset 07/18/2014; Stable.) 8) Spinal stenosis of lumbar region without neurogenic claudication (onset 07/18/2014; Stable.) 9) Other and unspecified hyperlipidemia (onset 07/19/2014; Controlled.) 10) Benign paroxysmal positional vertigo (onset 06/19/2014; Stable.) 11) Unspecified hearing loss (onset 06/19/2014; Controlled.) 12) Disorders of sacrum (onset 07/18/2014; Stable.) 13) Intracerebral hemorrhage (onset 06/19/2014; Stable.) 14) Symptomatic menopausal or female climacteric states (onset 06/19/2014; Stable.) 15) Adjustment reaction with prolonged depressive reaction (onset 06/19/2014; Fair Control.) 16) Unspecified cataract (onset 06/19/2014; Stable.) 17) Benign neoplasm of colon (onset 06/19/2014; Stable.) 18) Routine medical exam (onset 06/19/2014; Stable.) 19) Other disease of nasal cavity and sinuses (onset 06/19/2014; Stable.) 20) Hypertensive heart and chronic kidney disease, unspecified, without heart failure and with chronic kidney disease stage I through stage IV, or unspecified (onset 06/19/2014; Stable.) 21) Chronic kidney disease, Stage III (moderate) (onset 12/01/2014; Stable.) 22) Diabetes mellitus with renal manifestations, type II or unspecified type, not stated as uncontrolled (onset 11/09/2014; Stable.) Ganglion Cyst of tendon Has been working w OT for 2 wks w pain relief methods w/o effect. Would like to have injected, will refer foot pain management Pt reports bilateral lateral MTP pain due to bunions. Hurts when walking and feels better in sneakers. Hasnt been walking more than usual or new shoes. No redness, swelling. Doesnt keep awake. No open areas sleep study management Thinks little d sleep study 3 -4 weeks ago. No result in chart. Accessed and printed via [facility] and placed in scan drawer. DX mild CHANNING w auto CPAP w download capacity recommended and ordered. Hard copy script provided to nursing and fu appts w CPAP clinic at [facility] and DR Jack made. ALso order placed w nursing to fu w pt in 2 wks whether cpap delivered and pt educated on use memory loss management Pt report s remembers to take a.m. meds but sometimes forgets to take p.m. meds except melatonin. Does have pill box and thinks when prepoured in pillbox remembers to take but she forgets to fill p.m. pills. Other pills she takes in p.m. are the aricept and tylenol arthritis hyperlipidemia Risk factors inc lude age over 50. Additional information: confident is compliant w taking pill now taking in morning with other medicines as cant remember BID dosing. dementia Additional infor mation: tolerating aricept at 5mg taking at night. cataracts/difficultly w seeing steph tsein cataracts are causing some difficultly in vision. Talked w office about scheduling prev ordered opthamology eval and they will do so today L elbow and knee pain resolved sleep apnea eval Missed eval due to sisters being rescheduled HTN Lt arm pain Left shoulder im proved but L elbow is still sore/sharp pain. Has been icing it about three times a day and helps temporarily. Saw OT about two times. Is being seen by Rehab.L knee pain worse. Has had it before but minimal. Now feels worse. Walking aggravates it. Has not iced it. Biofreeze helped only for a few minutes. Takes tylenol ES and Aleve if needed. Nurse Assessment P[facility] at [facility] Requesting to see nursing/medical r/t to complaints of left arm discomfort/pain. States for the past 4 to 5 weeks has had left arm pain starting at shoulder radiating down to wrist. Does not recall doing anything to bring on the pain. States lately it has been a constant discomfort, worse with movement. Denies any numbness, tingling sensation. No neck pain. Will update Dr. Mclean with PPT's concerns. TPR 98.9, 61, 18, BP 154/74. Nicole Meek RN arm pain Onset: gradual. The problem is worsening. Location: left. The pain is aggravated by bending. The pain is relieved by elevation and OTC medicines: aceta/aleve. Associated symptoms include nocturnal pain. Pertinent negatives include joint instability, locking, numbness, popping, spasms, swelling and tingling in the arms. Hand Dominance: right. memory loss/med compliance Pt re ports often forgets to take simvastatin and has trouble sometimes prepouring meds. Open to working w nursing and plan discussed w nursing. Pt is interested in taking something for memory. Educated on current available medications slow symptoms associated w memory loss but don't stop progression. Would like to try. Reports has trouble remembering conversations that happened within the hour. insomnia The patient pres ents for insomnia. The patient does not have: use of alcohol. Additional information: pt reports that current medication regimen is working well. sleep apnea Pt reports hasnt used CPAP in a long time. Is agreeable to repeat sleep study to determine if still needs CPAP and settings. Currently appears w/o sx hearing loss reports difficul ty hearing when there is background noise depression Additional infor mation: Reports w change to long acting effexor and attending sE mood very much improved. Feels like current treatment plan is working and helpful. tooth eval (comments) Seen today for evaluation of R molar tooth pain. Pt states that the pain had been off and on over the past several months but on Saturday it became severe and continuous. She took Tylenol arthritis with out reliev. She was advised this morning to take Naprosyn 200 mg po. She reports that she has been seen for this tooth before and was advised to have it either extracted or refilled. She denies difficulty swallowing, fever chills or cough. tooth eval FU needed allergy reviewEC ASA reviewRecords: channing, polyp, paphearing eval?med assist counseling?echo? chronic conditions Pertinent neg atives include fatigue, weight gain and weight loss. post enrollment 68 yo BF main di sability s/p hemorrhagic CVA 2001 w some resultant RLE weakness, ambulates w cane. Memory loss mild but progressing. Lives alone,still drives short distances, has gotten lost on occasion in familiar setting, no accidents. Mild depressive sx. Son lives close by and assists w some ADL on occassion. Untreated CHANNING. Wishes cancer screening and full code. Some pain in hip can be limiting. Marked insomnia Instructions Date Instruction Additional Infor feliciano improved, continue to monitor Re lated to Acute anterior epistaxis Improved, continue eucerin and m onitor Related to Actinic keratosis Improved, continue eucerin and m onitor Related to Seborrheic keratosis She had concern abou t auth for epidural. she will be rescheduled for further discussion Related to Spinal stenosis of lumbar region, unspecified whether neurogenic claudication present visible ulceration t o left nare right corner likely secondary to trauma. Anisha suffers from seasonal allergy and uses saline mist. Bleed is mild, self limiting and doesn't last long. Anisha reassured that when the ulcer heals the bleed will stop. Advised to restrain from picking in nose. Related to Acute anterior epistaxis Mild scaly macule to bilateral lower extremities, asymptomatic. Anisha reassured that even though this has the tendency to progress to a worrisome lesion, the likelihood of that happening is low. I will give her more eucerin cream and monitor. Does not need derm referral. Related to Actinic keratosis Typical presentation evidence of seborrheic. Also Anisha has evidence of excessive dry skin which may be contributing to pruritis. she was once given eucerin but ran out of supply. I will send her some supply for her back. Education was given on how to apply to her back area. Anisha reassured that this is a benign lesion. Will continue to monitor Related to Seborrheic keratosis Last labs from 03/16 with Cre 1.31, eGFR 40. She continues on Amlodipine 10mg daily and Lisinopril 20mg daily. No urinary complaints at this time. Labs drawn today will be reviewed once available.-Continue to avoid nephrotoxins, control blood sugars and HTN.-Monitor for changes. Related to Type 2 diabetes mellitus with stage 3b chronic kidney disease and hypertension Last labs from 03/16 with Cre 1.31, eGFR 40. She continues on Amlodipine 10mg daily and Lisinopril 20mg daily. No urinary complaints at this time. Labs drawn today will be reviewed once available.-Continue to avoid nephrotoxins, control blood sugars and HTN.-Monitor for changes. Related to Hypertensive chronic kidney disease with stage 1 through stage 4 chronic kidney disease, or unspecified chronic kidney disease Last labs from 03/16 with Cre 1.31, eGFR 40. She continues on Amlodipine 10mg daily and Lisinopril 20mg daily. No urinary complaints at this time. Labs drawn today will be reviewed once available.-Continue to avoid nephrotoxins, control blood sugars and HTN.-Monitor for changes. Related to Chronic kidney disease, stage 3b No documented histor y of anxiety in the record prior to today. DESHAWN-7 screening completed today with a score of 15, indicating severe generalized anxiety. Currently taking Venlafaxine ER 150mg PO daily. Lives alone and is having worsening anxiety and depression as well as reported memory issues. We discussed increasing her dose as well as the potential to change or add medication based on results after trial of increased dose.-Increased to Venlafaxine ER 225mg PO daily.- Follow up scheduled with PCP q 8 weeks to evaluate for improvement in symptoms with increased medication dose. Related to Generalized anxiety disorder Last apt. with pain management was 04/12/2021. Plan was for fluoroscopic guidance R L5 dorsal rami/lateral branches procedure but appointment was rescheduled to 06/2021. She takes scheduled Tylenol BID and additional dose PRN, Bengay topical PRN, as well as Tramadol up to TID PRN for right shoulder pain.-Continue following with pain clinic, next appointment 06/2021.-Continue medication management.-Monitor for changes. Related to Spinal stenosis of lumbar region without neurogenic claudication Patient reports evelyn ry problems started with a brain hemorrhage on 2000. MoCA 04/2020 is 2330, SE RN to repeat assessment. Patient reports increased difficulty with ambulating and uses a cane around the house now.-Continue to monitor.-Consider consult, patient not interested in therapy at this time. Related to Memory deficit following cerebral infarction New complaints of sk in lesion on upper left back. There is a 1cm oval plaque with a pale, flaky appearance. She says it itches and bothers her. She also has noticed skin changes to the bilatertal shins. Might require biopsy to confirm diagnosis or treatment.-Dermatology referral placed. Related to Actinic keratosis Reports difficulty f alling asleep. Has melatonin 10mg PO for PRN use and says she takes it a few hours before trying to fall asleep. We discussed taking it more regularly and earlier with dinner for optimized use. History of moderate CHANNING but does not use CPAP machine.-Encourage quality sleep hygiene.-Optimize treatment of CHANNING, anxiety, depression.-Melatonin taken with dinner may have better efficacy. Related to Insomnia, unspecified type Records show sleep c ramon velasquez 2014-ppt was re-evaluated by [facility] and was currently using the C-PAP at night with good effect at 11/2018 visit. Ppt reports that she is not using the C-PAP at this time, nor has plans to re-start, states that it bothers her and she cannot tolerate using it. Melatonin PRN for difficulty falling asleep, takes it a few hours before trying to sleep. Reports of worsening anxiety and depression could be worsened by untreated CHANNING.-Monitor for changes.-Continue to encourage CPAP use.-Melatonin 10mg PO qHS, take with dinner instead of later. Related to Moderate obstructive sleep apnea Continues on Effexor 150mg. She reports intermittent depression and within the past year has been affected by the passing of two of her brothers and she was not able to attend services as he was in [place]. She does attend day program on and enjoys this. She has kept in touch with some of her friends from [place] but has only had one opportunity to visit. PHQ9 today was 20 indicating severe depression. She has had therapy in the past but does not feel it was helpful. We discussed increasing her medication for improved symptom management, increased Venlafazine ER 225mg PO daily. Also discussed adding or trying an additional medication if this dose increase fails to improve her symptoms.-Follow up in 8 weeks for follow up on medication changes. Related to Severe episode of recurrent major depressive disorder, without psychotic features GI notes indicate sh marilin is due in 2020. -Colonoscopy ordered by previous provider, unclear if she completed this yet. Related to Hx of colonic polyp Follows with Dr. Fady messer, bilateral cataract extraction and IOL placement. Last appointment 06/09/20. Today with complaints of eye irritation OS. On exam, there is a pale, flesh-colored conjunctival mass, consistent with pterygium at the medial nasal side of the cornea not encroaching into cornea at this point. She complains of eye irritation and foreign body sensation. Denies changes to her vision.-Referral placed for Ophthalmology visit re: conjunctival mass and annual DM exam. Related to Pterygium of left eye Patient with seasona l allergies. Continues with Naphcon eye drops, Refresh Optive eye drops, Saline nasal spray, Fexofenadine 180mg PO daily for symptoms.-Continue medication management. Related to Seasonal allergic rhinitis, unspecified trigger Has misplaced hearin g aides and is not interested in new ones at this time.-Monitor for worsening hearing and need for hearing aides. Related to Bilateral hearing loss, unspecified hearing loss type Labs on 12/01/2020 Vit D level 56 continue with current supplement of Vitamin D-3 2000U daily. No recent falls, but reports of close calls and increased use of cane for ambulation even within the home.-Continue Vitamin D supplement.-Labs ordered today will be reviewed once available. Related to Vitamin D deficiency Today weight is down to 180# from 189# a year ago. Metformin has helped improve A1c and weight, BMI today is 28.19. -Continue to monitor and encourage healthy lifestyle choices. Related to BMI 28.0-28.9,adult Weight is down from 189.6# last year 05/2020 to 180#. Metformin had been added which seems to have helped with weight loss and A1c. Will review labs drawn today-Continue to encourage healthy diet, exercise, and weight loss. Related to Obesity with serious comorbidity, unspecified classification, unspecified obesity type She does not routine ly check her blood sugars at home due to misplacing/running out of supplies and does not remember what her readings have been. Last HgbA1c was 7.5% in 11/2020. She has tried Freestyle Rubén in the past but did not continue to use it. Labs ordered for today will be reviewed once available.-Encourage at least daily monitoring of blood sugars.-Depending on current A1c, may need to adjust medications. Related to Type 2 diabetes mellitus with hyperglycemia, without long-term current use of insulin Last A1c in 11/2020 w as 7.5%. She reports that she has run out of DM supplies including lancets, strips, and has misplaced her glucometer so she has not been monitoring her sugars as she should be. She continues on Metformin 500mg BID. Reports that her feet go numb at times. Full sensation with monofilament and slight decreased sensation to right small toe. Uses cane for ambulation and reports decreasing stability with walking, no falls but close calls . Labs drawn today will be reviewed once available.-SE RN to manage setting ppt up with new DM supplies.-Continue medication management and monitor for changes.-Referral to podiatry placed today. Related to Type 2 diabetes mellitus with diabetic polyneuropathy, without long-term current use of insulin Most recent labs fro m 12/01/20 with Total/HDL/LDL/Tri 211/70/123/82. Continues on Atorvastatin 80mg PO daily and Ezetimibe 10mg daily. Labs drawn for today's visit to be reviewed once available.-Continue medical management.-Consider ed educational aide involvement in diet choices. Related to Hyperlipidemia, unspecified hyperlipidemia type Having a recurrence of the vertigo. She is mostly concerned because it has lingered longer that it usually does. Plan to order labs today. Offered her meclizine but she does not want to take it since it makes her tired. We discussed physical therapy to work on vestibular rehab. She will call if no improvement. Related to Benign paroxysmal positional vertigo, unspecified laterality Concerns of right ey e irritation. Reports history of allergy symptoms. Has been using lubricating drops. Does not want anything else right now and tells me she would like to continue to use the moisturizing lubricating drops and if no improvement she will let me know. Related to Irritation of right eye labs on 05/24/2020 BU N 17 creat. 1.0, GFR 55. Bp controlled 122/78 today. Reviewed DM control. Labs ordered. Related to Chronic kidney disease (CKD) stage G3a/A3, moderately decreased glomerular filtration rate (GFR) between 45-59 mL/min/1.73 square meter and albuminuria creatinine ratio greater than 300 mg/g Reports that her fee t go numb at times. Full sensation with monofilament today with slight decreased sensation to right small toe. Due to see podiatry will get this scheduled. Uses cane for ambulating. Discussed diabetes control. Will continue to monitor. Labs ordered today. Last HgbA1c was 8.7 on 05/24/2020 reviewed with ppt and encouraged better control. Related to Type 2 diabetes mellitus with diabetic polyneuropathy, without long-term current use of insulin Last apt. with pain management was 07/2020 via phone call. Plan was for back injections but she decided against it and states Tylenol as been managing her pain. Ambulation is somewhat limited due to back pain. Continues on tramadol right shoulder pain. Takes on an as needed basis. Related to Spinal stenosis of lumbar region, unspecified whether neurogenic claudication present Continues to not use CPAP stating that it bothers her and she cannot tolerate using it. Related to Moderate obstructive sleep apnea Uses melatonin as ne eded for sleep. No current concerns. Related to Insomnia, unspecified type Continues on effexor 150mg. reviewed with her that the medication is probably doing more than she realizes since she has been on it a long time she probably does not remember how she was feeling before starting on it. She reports intermittent depression and lately has been affected by the passing of 2 of her brothers one most recently last week and she was not able to attend services as he was in [place]. She does attend day program on and enjoys this. She has kept in touch with some of her friends from [place] but has only had one opportunity to visit. PHQ9 today was 4. She has had therapy in the past but does not feel it was helpful. Related to Recurrent major depressive disorder, in partial remission Bp 122/78 today. Con tinues on amlodipine and lisinopril. Last laps on 05/24/2020 BUN 17 Creat. 1.0, GFR 55. Labs ordered. Related to Hypertensive kidney disease with stage 3a chronic kidney disease Cholesterol on 2020 total 179, HDL 61, LDL 101, tri 79. Continues on Atorvastatin 80mg daily and Ezetimibe 10mg daily. labs ordered Related to Hyperlipidemia, unspecified hyperlipidemia type Continues on Metform in 500mg 2 times daily. Related to snf (current) use of oral hypoglycemic drugs Last HgbA1c was 8.7 on 05/24/2020 discussed a goal of getting this below 8. BUN on 05/24/2020 was 17 creat. 1.0 and GFR 55. She reports that she ran out of her medication about 2 weeks ago and had it refilled yesterday but did not receive it yet. Reviewed importance of good DM control. She is due for eye exam and podiatry which I have ordered for her today. Labs ordered.Continue to monitor. Related to Type 2 diabetes mellitus with stage 3a chronic kidney disease, without long-term current use of insulin she does not routine ly check her blood sugars at home and does not remember what her readings have been. Last HgbA1c was 8.7 on 05/24/2020. Labs ordered for today. Related to Type 2 diabetes mellitus with hyperglycemia, without long-term current use of insulin ppt reports she rece ived the first dose of the COVID-19 [place] her [place] 05/15/2020. Tolerated well, asymmptomatic. 2nd dose scheduled for 06/05/2020. OncoEthix vaccine Related to COVID-19 vaccine administered Records show sleep c yarelysheridan ron 2015-ppt was re-evaluated by [facility] and was currently using the C-PAP at night with good effect at 11/2018 visit. Ppt reports that she is not using the C-PAP at this time, nor has plans to re-start.. Related to Moderate obstructive sleep apnea Continues to have me latonin PRN on med profile. Not using C-PAP with not plan to initiate. Related to Insomnia, unspecified type MRI 05/17/2020 shows evidence of canal and foramen stenosis L4-L5;L5-S1. See plan for degeneration of intervetebral disc of lumbar region. Related to Spinal stenosis of lumbar region without neurogenic claudication MRI 05/17/2020 with e vidence of degenerative disease at L4-L5; L5-S1, small synovial cyst at L4-L5, mild canal and foramen stenosis and mild diffuse disc bulge left o midline at L5-S1. [facility] clinic appointment 05/25/2020. Will refer to Ortho for eval and recommendations for management. Taking tramadol 50 mg twice daily, uses a cane for ambulation. Related to Degeneration of intervertebral disc of lumbar region patient reports evelyn ry problems started with a brain hemorrhage on 2000. MoCa 04/2020 is 2330. No concern for dementia at this time (10/2019) Related to Memory deficit following cerebral infarction Minimal decreased st rength on the right, barely noted unless ppt is very tired. Using a cane for ambulation. BP, lipids, glucose all being monitored and managed with medications as is appropriate. No changes at this time. 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 [facility], now managed with steroid injections. Appointment 05/25/2020. Using tramadol 50 mg tablets twice daily, PRN APAP, topical medicated patches.. Related to Primary osteoarthritis involving multiple joints ppt is stable on eff exor 150 mg daily. Affected by social isolation. Likes to sleep late, so misses on-line interaction with orthodox group. Will ask SW and ed educational aide to reach out to support. GDS score was 5 today=mild depression Related to Major depressive disorder, recurrent, in partial remission Continues with alleg ra 180 mg daily. Eye drops and nasal spray. Sporadic relief. No changes at this time. Related to Seasonal allergic rhinitis, unspecified trigger Has new hearing aids which ppt states work well. Needs batteries and does not wear at home or much lately related to social distancing/isolation. Related to Bilateral hearing loss, unspecified hearing loss type Feb-01-2021 Has been stable. no new eopisodes. Will continue to monitor for changes. Related to Benign paroxysmal positional vertigo, unspecified laterality Vitamin D-3 2000 IU daily on med profile. Labs today to monitor levels. Recent fall 05/05/2020 Related to Vitamin D deficiency BMI is 29.66 04/2020 Related to B lula mass index [BMI] 29.0-29.9, adult Current weight is 18 9.6 BMI: 29.66. Will continue to support and monitor for changes. New addition of metformin to manage hyperglycemia. Up until now, glucose has been manged with diet. Related to Obesity due to excess calories with serious comorbidity, unspecified classification Elevated HgbA1c over the past year. 10/2019 was 8.0%leonel's value was 8.7%. Will initiate metformin 500 mg by mouth twice daily and repeat HgbA1c in a few months Related to Type 2 diabetes mellitus with hyperglycemia, without long-term current use of insulin Reports numbness of toes, has decreased peal pulses and impaired sensation of the feet on exam. Use a can for ambulation. Reported fall 05/05/2020 while bending forward in her kitchen. Podiatry appointment scheduled with new provider Dr. Arguello Related to Type 2 diabetes mellitus with diabetic polyneuropathy, without long-term current use of insulin Blood pressure is st able. Continues on amlodipine 10 mg daily, lisinopril 20 mg daily with management of lipids with statin. eGFR 10/2019 was 64. Labd to monitor function. Related to Hypertensive kidney disease with stage 2 chronic kidney disease Blood pressure is st able. Continues on amlodipine 10 mg daily, lisinopril 20 mg daily with management of lipids with statin. eGFR 10/2019 was 64. Labd to monitor function. Related to Chronic kidney disease, stage 2 (mild) Ppt evaluated for ne urological deficits s/p 05/05/2020; with triage f/u telephonically 05/06/2020. Communication during Wellness call 05/09/2020 documented continued headache. Provider was not aware of this communication, so f/u was completed via FaceTime with PCN this evening. No residual neuro deficits found during assessment. CN are intact. Will see ppt in clinic 05/24/2020 for Bi-Annual. Related to Fall, initial encounter ppt is stable on eff exor 150 mg daily. Offered additional outreach by team to check on her-ppt not interested as she states 'they call too early and then I can't get back to sleep especially if I have ahd a hard time sleeping the night before. Will ask SW and PCN to reach out to ppt this next week Related to Major depressive disorder, recurrent, in partial remission Ppt has not contacte d PAin clinic during the time of this increased pain. Will place referral. Tramadol 50 mg by mouth every 8 hours as needed for moderate pain. Rx sent for fill. Will order MRI of the lumbar spine. Has APAP 650 2x/day and topical creams PRN Related to Degeneration of intervertebral disc of lumbar region Not wearing C-PAP 2019. Equipment/mask were evaluated by [facility] after 11/2018 assessment. Has sleep aid on med profile. Only using melatonin PRN-have edited medication profile to relfect the PRN nature of ppt's use. Related to Insomnia, unspecified type Records show sleep c ramon velasquez 2014-ppt was re-evaluated by [facility] and was currenly using the C-PAP at night with good effect at 11/2018 visit. Ppt reports that she is not using the C-PAP at this time. Related to Moderate obstructive sleep apnea patient reports evelyn ry problems started with a brain hemorrhage on 2000. has tried rivastigmine but had SE of headache. MoCa 04/2019 was 25/30. No concern for dementia at this time (10/2019) Related to Memory deficit following cerebral infarction Seem by pain clinic for steroid injections. Last time 09/2019 was not as beneficial. Topical and PRN medications in place for the interim. Working with therapy and will plan to scheduled next appointment with Pain clinic. Related to Degeneration of intervertebral disc of lumbar region R hip. [facility], now managed with steriod injections. last injection 10/20/2019-not beneficial. plan is to reorder topical patches. Will trial tramadol 50 mg tablets every 6 hours PRN. Encouraged ppt to call the pain clinic to be on the list for the next soonest appropriate appointment. Related to Primary osteoarthritis of right hip Continues with alleg ra 180 mg daily. Eye drops and nasal spray. Sporadic relief. FInds it best to stay inside. no chages at this time. Related to Seasonal allergic rhinitis, unspecified trigger Has been stable. no new eopisodes. Will continue to monitor for changes. Related to Benign paroxysmal positional vertigo, unspecified laterality weight loss inthe pa st few months, currently weight is recorded as 192.46 BMI of 30.31. Treatment for hypertension, hyperlipidemia. DM is managed with diet. Related to Body mass index (bmi) 30.0-30.9, adult weight loss inthe pa st few months, currently weight is recorded as 192.46 BMI of 30.31. Treatment for hypertension, hyperlipidemia. DM is managed with diet. Related to Obesity (BMI 30.0-34.9) Abnormal monofilamen t test at exam. Reports occasional burning/numbness of the toes/feet. No recently reproted fall. Seen by podiatry 04/2019. Hgba1c was 7.7% 04/2019. Labs today tomonitor. Related to Peripheral sensory neuropathy due to type 2 diabetes mellitus Minimal, barely note d unless ppt is very tired. Using a cane for ambulation. BP, lipids, glucose all being monitored and managed with medications as is appropriate. No changes at this time. Related to Hemiplegia and hemiparesis following cerebral infarction affecting right dominant side ppt is stabel on eff exor 150 mg daily. Not invloved in cunseling. GDS score is 5= mild depression. primarily reltaed to isolation d/t pandemic guidlines. Discussed getting together with family out side. Plan to speak with her son to see if they can some times up. no changes at this time. Related to Major depressive disorder, recurrent, in partial remission HgbA1c 04/2019 was 7. 7%. No medications on profile, prefers to manage by diet eGFR 04/2019 was [address] Agarwal 05/07/2019 with decreased PP and LOPS. Last eye evaluation with Dr. Del Valle was 07/2018 Order placed for f/u 04/2019-has not been scheduled d/t pandemic. Will place again. Related to Type 2 diabetes mellitus with stage 2 chronic kidney disease, without long-term current use of insulin Atorvastatin was inc reased to 80 mg daily for labs 04/2019. total cholesterol was 232; HDL: 73; LDL: 140; TGY: 89. Labs today to monitor lipid levels and liver function. Plan pending results. Related to Mixed hyperlipidemia Not on a daily suppl ement. No recent falls. Last level 04/2019 was 19. Labs to be drawn to monitor levels. Related to Vitamin D deficiency eCFR 04/2019 was 66. No new medications. Routine lab monitoring of kidney function. Related to Chronic kidney disease, stage 2 (mild) BP readings today ra nged 100-134/67-78. Continues on amlodipine 10 mg godfrey, lisinopril 20 mg daily. Atorvastatin 80 mg daily. eGFR 04/2019 was 66. No new medications. uses APAP not ibuprofen for back/hip pain. Labs today to monitor lipids and kdiney function. Related to Hypertensive kidney disease with stage 2 chronic kidney disease Not on a daily suppl ement. No recent falls. Last level was 19. Labs to be drawn to monitor levels. Related to Vitamin D deficiency Ppt memory problems started with brain hemorrhage 2000. . Last MoCa 05/2018 Related to Memory deficit following cerebral infarction Continues on daily a llegra 180 mg. PRN NS, eye drops when needed. No chnges at this time. Related to Seasonal allergic rhinitis, unspecified trigger Doing quite well. GD S score today is 3=no depression. Will continue on effexor ER 150 mg daily. Barreto snot follow with a behavior health counselor, but is very involved with orthodox and activities at her residnce. No concerns at this time. Related to Major depressive disorder, recurrent, in partial remission Last steroid injecti on 12/2018. Pptwill plan to schedule f/u appointment. referral to therapy to re-assess and treat to maintain functional status Has APAP PRn on med profile, topical analgesic. Useing a cane for ambulation. Related to Osteoarthritis of right hip, unspecified osteoarthritis type Last appointment 11/28 019. ppt will plan to make a f/u as the steroid injections do improve her function/lessen pain response. Continues to use a cane for ambulation. Has worked with therapy services in the past Due for therapy assessment as part of the annual assessments Related to Degeneration of intervertebral disc of lumbar region [facility] 10/18/18 for symp toms with no relief with use of meclizine. H/O CVA ? residual effects. Working with therapy. MRI negative for CVA. No additional episodes since 12/2018. Will monitor for changes and support. Related to Benign paroxysmal positional vertigo, unspecified laterality MoCa to be performed as part of today's assessmentb y PCN. No chnage in function. No incontinence, inability to perform ADLs. Able to manage finances. No change in word finding or recovery. Will continue to monitor for changes. Related to Age-related cognitive decline Wears eye glasses. A nnual eye evaluation with Dr. Del Valle is due July 2019. No vision concerns at this visit. Related to Presence of sulcus intraocular lens implant ppt has CHANNING,not wear ing C-PAP by ppt self-report. Weight is up, liids elevated, BP elevated. Has melatonin 10 mg at bedtime on profile, but up 2-3x/night to urinate. Will encourage use of C-PAP, lipid and P meds adjusted for better control. Will monitor for changes. Related to Insomnia due to medical condition Ppt states that she is ot using the C-PAP at this time, finds the mask uncomfortable. refusing to have [facility] re-assess fit. Ppt's weight, BP are elevated. denies daytime fatigue. Nocturia 2-3x night. Will continue to encourage, support and monitor use of C-PAP Related to Moderate obstructive sleep apnea No change in strengt h or function Continues using a cane for ambulation, which is primarily d/t lumbar and hip pain, not for residual weakness on the right which is very mnimal. BP, lipids, glucose monitored. Labs today. Med adjustments for lipids, BP planned pending lab results. Related to Hemiplegia and hemiparesis following cerebral infarction affecting right dominant side Ppt has attended the ed educational aide's wellness and DM groups.. Personal goals to loose weight with variable success. BP slightly more elevated than preferable. HgbA1c was 7.8& 11/2018, lipids LDL is > 70. Med adjustments for P meena Lipids planned. Will continue to support and monitor for changes. Related to Class 1 obesity with serious comorbidity and body mass index (BMI) of 31.0 to 31.9 in adult, unspecified obesity type Lipids not quite wit hin goal range. Labs today and possible adjustment to increase the statin from 60 mg daily to 80 mg daily will continue to monitor BP, labs Related to Hyperlipidemia, unspecified hyperlipidemia type Readings today range in the 140's/70's. eGFR 11/2018: 57; lipid levels: cholesterol: 219; HDL: 80; LDL: 115; TGY: 129. Labs today, may change statin dose, adjust BP meds Related to Hypertensive kidney disease with stage 3 chronic kidney disease Colonoscopy August 16, does not need repeat scope until per GI visit of 06/2018. Related to Hx of colonic polyp Last eGFR 12/2018 was 57. No new medications added. Uses meclizine and APAP PRN for symptoms. WIll moniotr for change in symptoms, routine labs. Related to Chronic kidney disease, stage 3 (moderate) No report of burning , numbness or tingling of the feet or legs. Using a cane for ambulation. glucose is managed by diet, no anti-hyperglycemic meds on profile. Last HgbA1c 12/2018 was 7.8%. No recently reported falls. Related to Type 2 diabetes mellitus with diabetic polyneuropathy Continues to be celeste ged by diet. Last Hgb A1c 11/2018 was 7.8%, microalbumin 05/2018 was 4. eGFR 57 12/2018 and reatinine of 0.99. Labs ordered to monitor. Related to CKD stage 3 due to type 2 diabetes mellitus Ppt is not currently taking a supplement. Labs followed routinely. No recent falls. No recent dexa scan. Related to Vitamin D deficiency Left abdominal wall skin tag near waist line. ppt requesting to have evaluated. Will make referral to dermatology Related to Skin tag, acquired MoCa 05/2018 was 29/3 0. No conerns at this time. Will continue to support and monitor for changes. Related to Unspecified dementia without behavioral disturbance No changes in allegr a, eye drops and NS as needed. DId discuss need to remain hydrated especially in the warmer weather and her recent flare of BPV. Related to Allergic rhinitis due to pollen Sleeping better and feels more rested since re-starting use of the C-PAP machine. Sleeping 7 hours a night per ppt report. Will continue to monitor for changes. Related to Insomnia due to medical condition Does not wear her hearing aids Related to Other specified hearing loss, left ear Reports increased pa in since yesterday with a shift of the lower spine when she rwisted. Diffuse disc bluging L5-S1 more prominent to L abutting S1 nerver roots bilaterally. Will add a topical patch and have therapy eval to see if other interventions are warranted. Related to Other intervertebral disc degeneration, lumbar region Well managed with st eroid injections at this time. Reports benefit, less pain after injections. No changes at this time. Related to Unspecified osteoarthritis, unspecified site Improved pain sx wit h steroid injections. Next appointment 12/2018. Will continue to monitor for changes. Related to Spinal stenosis, lumbar region without neurogenic claudication [facility] 10/18/18 for symp toms with no relief with use of meclizine. H/O CVA ? residual effects. Working with therapy. MRI negative for CVA. Related to Benign paroxysmal vertigo, unspecified ear Stable. Not currentl y taking any medications for this concern. No changes at this time. Related to Gastro-esophageal reflux disease with esophagitis Ppt reports that she struggles with snacking. LBP complicates her ability to be less sedentary.. Seen by pain clinic 09/2018 for right hip steroid injection with good effect, but struggles with sacral spine pain. Attends weekly group with ed educational aide. Related to Other obesity Records show sleep c ramon velasquez 2014-ppt was re-evaluated by [facility] and is currenly using the C-PAP at night with good effect. Related to Obstructive sleep apnea (adult) (pediatric) Managed on Effexor. GDS score routinely performed- recently has stabilized at 4 on the GDS 11/2018. Support of family and orthodox community. Related to Major depressive disorder, recurrent, moderate Murmur not appreciated on exam Related to Benign and innocent cardiac murmurs May consider adding 20 mg of atorvastatin to medical profile as LDLs are not within goal rrange. Labs ordered and will make changes pending results. Related to Hyperlipidemia, unspecified BP controlled with a mlodipine and lisinopril, atorvastatin for lipid management. Recent flare of benign positional vertigo that scares the ppt because of her CVA history. No changes at this time. Related to Hemiplegia and hemiparesis following cerebral infarction affecting right dominant side No reproted falls or injuries inthe past 6 months. Not current with podiatry at this time. No report of burning, tingling, pressure areas or ulcerations of the feet. Will continue to monitor for changes. Related to Type 2 diabetes mellitus with diabetic polyneuropathy No changes in lisino pril 5 mg daily at this time. Labs ordered to monitor levels. Related to Type 2 diabetes mellitus with other diabetic kidney complication BP had been up, rest arted lisinopril 5 mg daily. Pain had been better controlled, so not taking as much tylenol or using ibuprofen. Will continue to monitor for changes. Related to Chronic kidney disease, stage 2 (mild) Blood pressure value s 130's/70's Continues on amlodipine 10 mg daily and lisinopril 5 mg daily. Will continue to monitor for changes. Related to Type 2 diabetes mellitus with diabetic chronic kidney disease A1c now 6.6%. Repeat A1c in 3 months. Lab ordered. Related to Type 2 diabetes mellitus with other specified complication Due for eye exam. Related to Uns pecified cataract Weight is stable ove r the last several months. BMI 31.04 Related to Other obesity Mild cognitive impai rment. No evidence of memory loss. Last MoCA May 2016. Related to Unspecified dementia without behavioral disturbance Resolved. Related to Menop ausal and female climacteric states Takes melatonin 10mg qhs. Relate d to Insomnia due to medical condition On atorvastatin 40mg daily. Rela jarrell to Hyperlipidemia, unspecified Due for repeat in 2019. Related to Benign neoplasm of colon, unspecified BP lower today than in previous visits. On lisinopril 5mg and amlodipine 10mg daily. Will order weekly BPs to trend and perhaps decrease dose. Related to Hypertensive heart and chronic kidney disease without heart failure, with stage 1 through stage 4 chronic kidney disease, or unspecified chronic kidney disease Not using CPAP. Cannot tolerate. Related to Obstructive sleep apnea (adult) (pediatric) Meclizine d/c'ed in August 2016. Re lated to Benign paroxysmal vertigo, unspecified ear Stable. Last labs 2016 creatinine 1.01 and GFR 56. Related to Type 2 diabetes mellitus with other diabetic kidney complication No complaints today. Related to Gastro-esophageal reflux disease with esophagitis ? r/t chronic, longt erm intranasal steroid use. No obvious cause of bleeding as she is not on O2 or any visible trauma. No hx of thrombocytopenia upon lab review. Ppt will call SE if no improvement or continuing sx. Related to Epistaxis Ppt advised to d/c F lonase. Will try switching Claritin to mae. Continue with saline spray as needed. Related to Other seasonal allergic rhinitis Well controlled Related to Essen tial (primary) hypertension Will refer to orthop edics for injection. Ppt has order for tylenol. Will rx naproxen 500mg bid x 2 weeks. Education provided re: CKD and avoidance of halfway use of NSAIDs. Related to Pain in right hip Education provided r e: DM dx and treatment. No diagnosis in problem list, but previously documented in other visits. Ppt does not wish for pharmacomanagement at this time. She will try diet and exercise. f/u in 3 months. Repeat A1c next week - can set up home draw. Related to Type 2 diabetes mellitus with other diabetic kidney complication May-18-2017 On atorvastatin 40mg daily. Rela jarrell to Other hyperlipidemia Known OA. Per ppt re quest, will order steroid for injection. Related to Pain in right hip resume bengay alainae sdecrease simvastatin from 60 to 40 mg given newer maximum dosing suggestions and also in case any of her musculoskeletal pain is from the statinreturn in a few weeks for her semi-annual examination Related to Spinal stenosis, lumbar region d/w Dr Santiago who sug gested daily Flonase may thin mucosa causing bleeding.ppt advised to hold Flonase x1wk.RF Loratadine and resume daily.apply Bacitracin to nares qhs.f/u 1 wk if not improved. Related to Epistaxis reviewed results of her polysomnogram last year.encouraged her to use CPAP. Related to Obstructive sleep apnea (adult) (pediatric) advised to take BP m ed before all medical appts. Related to Hypertensive heart and chronic kidney disease without heart failure, with stage 1 through stage 4 chronic kidney disease, or unspecified chronic kidney disease drops to left ear and flush next weeek Related to Wax in left ear continue tx advised yesterday: steroid nasal spray, saline nasal spray, acetaminophenadd guatussin-dm for nighttime Related to Acute upper respiratory infection, unspecified If pain continues or worsens will consider sending her to pain clinic for injection. as pt reports after the injection she had 4 mo of no pain Related to Other intervertebral disc degeneration, lumbosacral region Suspect muscular enedina ology at this time. Will trial salonpas as pt reports that it is already a little better today after resting Discussed heat/ice for pain control and mane stretching. Related to Unspecified osteoarthritis, unspecified site will supply pt with saline nasal mist for hydration of nasal passages Related to Epistaxis appears to have been related to [place] patch. At this time pt does not want to start any other meds for dementia. Will re address at semi annual eval Related to Headache reviewed with pt amy kevin for increase in po fluids and not to have fan blowing on her directly as it may be drying out mucosa. Related to Other specified disorders of nose and nasal sinuses Reviewd medication l ist. Newest med is rivastigmine patch at 9.6 mg. Will ask pt to remove the patch and not reapply for 2 weeks and journal whether headaches resolve. Melatonin may also be contributing to the headaches. No vision changes and BP well controlled. Follow up in 2 weeks Related to Headache switch to rivastigmi ne topical from donezil to see if it decreases her loose bms Related to Dementia BMP CBC INR, EKG tod ay for pre op. No medical contraindicatins at this time for catarct surgery Related to Unspecified cataract currently stable on meds. and diet. Will be taking meds prior to surgery Related to Diabetes mellitus with renal manifestations, type II or unspecified type, not stated as uncontrolled Chronic pain treated with Tylenol ES 500 mg 2 tabs bid. Denies pain interrupting her sleep Related to Shoulder pain Pt reports that it h as completly resolved (Rl hand dorsum) Related to Ganglion cyst of tendon Improved with use of CPAP mask. Pt reports feeling better Related to [facility] Therapy referral. SW aware (July) Related to Adjustment reaction with prolonged depressive reaction Cont Lisinopril. Related to Diab etes mellitus with renal manifestations, type II or unspecified type, not stated as uncontrolled Improved on statin Related to Ot her and unspecified hyperlipidemia Order put in for PT to see pt. May need BID treatment. F/u 2 weeks. Related to Knee pain Discussed with OT Sa rah. Stark to see her today. May need 2xweek treatment. Related to Elbow pain Referred to rehab fo r evaluation. Seems more muscular. Ice/heat. F/u [address] Mclean. Related to Shoulder pain Repeat BP next SE da y and update provider. Related to Unspecified essential hypertension Pt with 2 day hx of severe dental pain over R lower 2nd molar. Will refer to dentist for evaluation and treatment Related to Dental pain Assessments Type Assessment Date No Information Goals Health Concern Goal Type Priority Status Date Anisha has chronic pain in low back due to spinal stenosis and disc degeneration, left shoulder, left hand and right hip related to oseoarthritis. Pain will not interfere with current level of functioning of (independent with mobility and ADL's ) Patient Goal New Anisha has chronic pain related to right shoulder and back Anisha will report a decrease in pain level in her right shoulder Patient Goal Complete Anisha is at risk for complications related to diabetes. Anisha will not experience any medical complications or hospitalizations, related to diabetes and A1C will be reduced or remain stable, as determined by the provider. Patient Goal Complete
--- NOTE | 2025-03-23 13:59 | A.OFFVIS_ITS ---
Intake Visit Reasons: follow up Accompanied by: Son Allergies codeine Allergy (Unknown, Verified 03/23/25 14:05) Unknown Medication List - Last Reconciled 03/23/25 by Paris Russ CNP amlodipine 10 mg PO DAILY atorvastatin 80 mg PO DAILY carvedilol 3.125 mg PO BID cholecalciferol (vitamin D3) 50 mcg PO DAILY clopidogrel 75 mg PO DAILY 30 days donepezil 5 mg PO DAILY hydralazine 25 mg PO TID hydrochlorothiazide 12.5 mg PO DAILY venlafaxine ER 150 mg PO DAILY HPI Comments Details: 79-year-old woman with history of poorly controlled hypertension, hyperlipid emia, depression, cerebral aneurysmal rupture in 1999 followed by clipping, admitted to [facility] in 10/2023 with CTA which showed some stenosis of the M1 segment bilaterally and MRI which showed watershed infarcts in the right frontoparietal area, right inferior frontal, and the right patel striatum, and MCI. She does not think she has memory problems, but her son feels there has been a decline in memory since early 2023. She lives alone and has help a few hours a week. She also gets Meals on Wheels. She felt her memory was okay and did not start donepezil. 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 She was not cooking much, sometimes using microwave or toaster oven, but did not use stove. She fell a few weeks ago when getting out of bed without injury. She was not always using cane or walker at home. No headaches or dizziness. No new stroke- like symptoms. She had some trouble falling asleep. [facility] Medical History (Updated 03/23/25 @ 14:04 by Paris Russ CNP) Depression Hyperlipidemia Hypertension History of ruptured cerebral aneurysm Diabetes MCI (mild cognitive impairment) Stroke Review of Systems Const Denies chills, Denies daytime sleepiness, Reports difficulty sleeping, Reports fatigue, Denies fever(s), Denies frequent falls, Denies headache(s), Denies increased appetite, Denies poor appetite, Denies snoring, Denies weakness, Denies weight gain and Denies weight loss Eyes Denies loss of vision ENT Denies vertigo, Denies dizziness, Denies headache(s) and Denies neck pain Card Denies chest pain at rest, Denies chest pain with activity, Denies syncope, Denies leg edema, Denies palpitations, Denies dyspnea and Denies dyspnea on exertion Resp Denies cough, Denies dyspnea, Denies dyspnea on exertion and Denies snoring GI Denies abdominal pain, Denies constipation, Denies heartburn, Denies diarrhea and Denies nausea Denies urinary frequency, Denies urinary incontinence and Denies urinary urgency Musc Reports abnormal gait (balance difficulty), Reports back pain, Reports myalgias, Reports arthralgias, Denies neck pain, Denies numbness and Denies tingling Neuro Reports abnormal gait (balance difficulty), Denies vertigo, Denies dizziness, Denies syncope, Denies frequent falls, Denies headache(s), Denies lack of coordination, Denies loss of vision, Reports memory loss, Denies numbness, Denies Other visual disturbances, Denies restless legs, Denies seizure-like activity, Denies tingling, Denies paresthesias, Denies tremor(s) and Denies weakness Psych Denies anxiety, Denies depression, Denies auditory hallucinations, Reports memory loss and Denies visual hallucinations Endo Reports fatigue and Denies palpitations Physical Exam Const Other: General Appearance:? normal, in no acute distress. Heart:? S1, S2 normal, no murmurs. Lungs:? clear anteriorly and posteriorly. Musculoskeletal:? normal. Extremities:? no edema. Psych:? alert, as below. Neuro Other: Abnormal Neurological Findings:?MMSE 21/30. Walking with walker. Mental Status: alert, as below. Cranial Nerves: Pupils are equal, round, and reactive to light. External ocular muscles are intact. Visual weber are full, no ptosis. Face is symmetrical, no facial weakness or droop. Facial sensations are normal. Tongue protrudes in midline. Palate elevates symmetrically. Shoulder shrugging is normal Motor Examination: Normal muscle tone, bulk and strength. No atrophy or fasci culations. No drift of the extended upper extremities. DTR 2+. Plantars are flexor. Sensory Exam: Normal light touch, temperature, pinprick, vibration, and joint- position sensations. Rhomberg sign is absent. Coordination: No ataxia. No titubation. Gait Exam: With walker. Cerebellar Signs: [id number] is okay. Extrapyramidal System: No tremor, rigidity with normal facial expressions. No bradykinesia. No bradyphrenia. Normal arm swing and posture. No propulsion or re tropulsion. Speech: Normal. MMSE Level of Consciousness: Alert. Orientation: Knows correct year, month, day and season. Not date. Knows correct city, county and state. Knows correct location and floor. Registration: Able to register 3 objects. Attention: Serial 7's performed accurately to 86. Recall: Able to recall 0 out of 3 objects. Language: Normal spontaneous speech, fluency, repetition, naming, comprehension, reading, and writing. Total Score: 21/30. Results Reviewed Results Reviewed: 04/01/24 EEG- WNL Elevated BUN/ Creat. Assessment & Plan Assessment & Plan (1) History of stroke: Code(s): Z86.73 - Personal history of transient ischemic attack (TIA), and cerebral infarction without residual deficits Category: Medical Plan: Continue statin, control blood pressure. (2) MCI (mild cognitive impairment): Code(s): G31.84 - Mild cognitive impairment of uncertain or unknown etiology Category: Medical Plan: She did not start donepezil that was prescribed at previous appointment in 09/2024. Treatment options discussed, and she was interested in trying medication. Start donepezil 5mg 1 tablet at bedtime, use/side effects reviewed. Stay physically and socially active, use walker. Follow up in 3 months or sooner as needed. Medications: Refilled donepezil 5 mg PO DAILY 30 tabs 5RF Coding Level of Care Code Est Pt Level 4 (08128) Diagnoses History of stroke Z86.73 MCI (mild cognitive impairment) G31.84
--- OUTSIDE RECORDS SUMMARY | 2025-03-23 17:52 | XMS_ITS | Encounter Summary ---
Author Organization [facility] Address [address] [place] [address] Encounters * CPT with Medical [facility] at [facility] on 2025-01-30 { reasonForRequest : Pt reporting shoulder pain>finger pain>lower back pain> arthritis> , patientReports : , denies :[ Falls with head strike andLOC , Falls from a standing position, no LOC, patient is amnestic to the event ,"Falls with isolated injury and deformity noted to limb , Falls with inability to move post fall , Cool extremities after fall or injury , Weakness with fall, able to move all extremities ], chiefComplaints : Extremity Pain , pmh :&quo t;Hypertension, Coronary Artery Disease, Osteoarthritis, Stroke, Depression , allergies": Codeine, Amoxicillin, Shellfish Derived, Rivastigmine , otherAllergies :nufrancisco singh, painAssessment : , visitOutcome : , additionalComments : 79 y.o female complains of Extremity Pain\nPatient symptoms persist but has flare ups of arthritis and she believes she is going through one now. Started last night right shoulder pain and right fingers except for thumb and endorses lower back pain. denies any falls or injuries. Patient has tried icy hot with very little relief. Denies any kidney issues and denies being on any blood thinners. \n\nI provided information on the mobile health provider response time and advised the patient and/or caregiver to monitor reported signs and symptoms. I discussed the warning signs of when to seek emergency care. } [facility]2 dispatched to [address], [place] for extremity pain. Pt c/o pain in her right hand where she has trigger finger in her pinky, ring finger and middle finger as well as, her right shoulder. Patient is alert and oriented to baseline. Pt skin pink, warm and dry. Pt denies fever or chills. Pt denies light headedness, dizziness, headache, and vision changes. Pt denies shortness of breath and lung sounds were clear bilaterally. Patient denies chest pain and heart sounds were normal. Patients abdomen was soft and non- tender. Pt denies nausea, vomiting, and diahrrea. Pt states her intake and output is normal. Patients lower extremities show no edema. [facility] was consulted and the assessment was shared. An EKG was obtained. Pt was given 30mg of Ketorolac in her left deltoid. Pt advised to follow up with ortho for the fingers. SC2 clears without incident. IV_(FLUIDS_AND/OR_MEDICATION), MEDICATION_IM, ORAL_MEDICATION, WOUND_CARE, ORTHOSTATIC_VITAL_SIGNS Written by Medical instED on 2025-01-30
--- OUTSIDE RECORDS SUMMARY | 2025-03-23 17:52 | XMS_ITS | Continuity of Care Document ---
Author Organization [facility] Address [address] [place] [phone] Care Team Providers Care Grievance And Appeals Coordinator Name Role Phone HIM CCA OTHER Assessment Encounter Date Assessment Date Assessment LastModified by Organization Details LastModified Time 01/11/2025 01/11/2025 I have reviewed and agree with the Assessment and Plan as documented by the Cat Sitter. I provided real-time medical direction via phone for this encounter, and was available for additional phone based assistance as needed. I would add/emphasize : Patient with history of arthritis is seen for acute on chronic right hand/shoulder pain. AVSS afebrile well-appearin g no trauma per report. Mild tenderness to palpation, thus no suspicion for cardiac etiology. No redness swelling or warmth to suggest infection. Treated 01/06 with ketorolac without any effect so will not retry this. Will have patient follow-up with patient's PCP. [email or web address] Not available 01/11/2025 17:54:07 Plan of Treatment Reminders Order Date Submit Date Provider Last Modified By Organization Details Last Modified Time Details Appointments None record ed. Lab None record ed. Referral None record ed. Procedures None record ed. Surgeries None record ed. Imaging None record ed. Medication Orders None record ed. Patient TargetsNo targets recorded. Patient InstructionsNo instructions recorded. Reason for Referral None Reported. Results Created Date Observation Date Name Description Value Unit Range Abnormal Flag Note LastModifiedBy Organization Detail LastModifiedTime 01/30/2001/29/2025 antonia newton am No observ ation record ed. acalthorpe [address], [phone] 01/29/2025 22:04:36 Result Notes None recorded. Medical Equipment None Reported. Allergies Allergen ID Allergen Name Allergen Category Reaction Reaction Severity Criticality Documentation Date Start Date Code Code System Note Provider Name and Address Organization Details Recorded Time 93450 rivastigm ine medicatio n Not available Not available Not available 01/18/2025 27763 9 RxNorm Not Available Now - production 5 13:28:34 2547 codeine medicatio n Not available Not available Not available 10/15/2022 2670 [facility] 4 15:32:19 6284 amoxicill in medicatio n Not available Not available Not available 01/17/2024 723 Rx[facility] Not Available [facility] 4 15:32:19 6285 shellfish derived food,medi cation Not available Not available Not available 01/17/2024 Not Available [facility] 13:37:31 Medications Name Sig Start Date Stop Date Status Note LastModified by Organization Details LastModified Time arth pain rel(acetamino phen)650mg t TAKE 1 TABLET BY MOUTH EVERY 8 HOURS NEEDED active Not Available Not Available No t Available arthrts pain tab 650mg er active Not Available Not Available Not Available [facility] active Not Available Not Available Not Available metformin 500 mg tablet TAKE 1 TABLET BY MOUTH TWICE DAILY WITH MEALS active Not Available Not Available No t Available atorvastatin 80 mg tablet TAKE 1 TABLET BY MOUTH DAILY active Not Available Not Available No t Available venlafaxine ER 75 mg capsule,exten ded release 24 hr TAKE 1 CAPSULE BY MOUTH EVERY MORNING , TAKE WITH 150MG CAPSULE FOR TOTAL DOSE OF 225MG active Not Available Not Available No t Available lidocaine 4 % topical patch Apply 1 patch by topical route as directed for 14 days. 2023 active Not Available Not Available Not Avai lable lisinopril 20 mg tablet TAKE 1 TABLET BY MOUTH DAILY active Not Available Not Available No t Available venlafaxine ER 150 mg capsule,exten ded release 24 hr TAKE 1 CAPSULE BY MOUTH DAILY active Not Available Not Available No t Available Tylenol Arthritis Pain 650 mg tablet,extend ed release Take 2 tablets every 8 hours by oral route as needed. 2022 active Not Available Not Available Not Avai lable hydralazine 25 mg tablet TAKE 1 TABLET BY MOUTH THREE TIMES DAILY active Not Available Not Available No t Available meclizine 12.5 mg tablet TAKE 1 TABLET BY MOUTH THREE TIMES DAILY NEEDED FOR DIZZINESS active Not Available Not Available No t Available clopidogrel 75 mg tablet TAKE 1 TABLET BY MOUTH DAILY active Not Available Not Available No t Available aspirin 81 mg tablet,delaye d release TAKE 1 TABLET BY MOUTH EVERY DAY active Not Available Not Available No t Available ketorolac 30 mg/mL (1 mL) injection solution 30 mg IM x 1 for pain 2022 active Not Available Not Available Not Avai lable carvedilol 3.125 mg tablet TAKE 1 TABLET BY MOUTH TWICE DAILY WITH MEALS active Not Available Not Available No t Available OneTouch Ultra Test strips DIRECTED TO TEST BLOOD SUGAR TWICE DAILY active Not Available Not Available No t Available amlodipine 10 mg tablet TAKE 1 TABLET BY MOUTH DAILY active Not Available Not Available No t Available lisinopril 10 mg tablet TAKE 2 TABLETS BY MOUTH DAILY active Not Available Not Available No t Available hydrochloroth iazide 12.5 mg capsule TAKE 1 CAPSULE BY MOUTH DAILY active Not Available Not Available No t Available ammonium lactate 12 % topical cream APPLY THIN LAYER TOPICALLY TO THE AFFECTED AREA TWICE DAILY active Not Available Not Available No t Available polyethylene glycol 3350 17 gram/dose oral powder TAKE 17 GRAMS BY MOUTH DAILY active Not Available Not Available No t Available lisinopril 40 mg tablet TAKE 1 TABLET BY MOUTH DAILY active Not Available Not Available No t Available metformin ER 500 mg tablet,extend ed release 24 hr TAKE 1 TABLET BY MOUTH TWICE DAILY active Not Available Not Available No t Available loratadine 10 mg tablet TAKE 1 TABLET BY MOUTH DAILY active Not Available Not Available No t Available Tylenol Extra Strength 500 mg tablet Take 2 tablets by oral route. 2023 active Not Available Not Available Not Avai lable ezetimibe 10 mg tablet TAKE 1 TABLET BY MOUTH DAILY active Not Available Not Available No t Available cyclobenzapri ne 5 mg tablet TAKE 1 TABLET BY MOUTH DAILY FOR 10 DAYS active Not Available Not Available No t Available rosuvastatin 40 mg tablet TAKE 1 TABLET BY MOUTH DAILY active Not Available Not Available No t Available diclofenac 1 % topical gel APPLY 2 GRAMS TO THE AFFECTED AREA(S) BY TOPICAL ROUTE 4 TIMES PER DAY 2023 active Not Available Not Available Not Avai lable cholecalcifer ol (vitamin D3) 50 mcg (2,000 unit) tablet TAKE 1 TABLET BY MOUTH DAILY active Not Available Not Available No t Available Allergy Relief (fexofenadine ) 180 mg tablet TAKE 1 TABLET BY MOUTH DAILY active Not Available Not Available No t Available melatonin 10 mg capsule TAKE 1 CAPSULE BY MOUTH DAILY NEEDED active Not Available Not Available No t Available OneTouch Ultra2 Meter USE TO CHECK BLOOD SUGAR TWICE DAILY active Not Available Not Available No t Available OneTouch Delica Plus Lancet 33 gauge USE TO CHECK BLOOD SUGAR TWICE DAILY active Not Available Not Available No t Available OneTouch Delica Plus Lancing Device kit USE TO CHECK BLOOD SUGAR TWICE DAILY active Not Available Not Available No t Available Salonpas 3.1 %-10 %-6 % topical patch APPLY 1 PATCH TOPICALLY TWICE DAILY NEEDED FOR SHOULDER PAIN active Not Available Not Available No t Available Vitals Date Recorded Body temperature Body height Oxygen saturation Respiratory rate Heart rate Body weight Systolic And Diastolic Provider Name and Address Organization Details Last Updated DateTime 5 98.5 [degF] 170.18 cm 98 % 17 /min 78 /min 56180.5 6 g 132/64 mm[Hg] Not Available [facility] - production 17:51:19 Social History None recorded. Functional Status None recorded. Mental Status None recorded. Family History Nothing Reported. Medical History No medical history recorded. Gynecological HistoryNo gynecological history recorded. Obstetrics History GPAL:G 0 P 0 0 0 0 Past Encounters Encounter ID Performer Location Encounter Start Date Encounter Closed Date Diagnosis/Indication Diagnosis SNOMED-CT Code Diagnosis ICD10 Code Diagnosis IMO Codes Diagnosis Note [id number] Javy Carmona MD [facility] ED Medical [address] [address] 01/06/2025 15:01:02 01/07/2025 11:16:39 Arthritis 9909687 M19.90 [id number] Iliana Jules MD [facility] ED Medical [address] [address] 01/11/2025 17:51:16 01/11/2025 22:45:15 Osteoarthritis of multiple joints 960900591 M15.9 [id number] Health Concerns Section Related Observation LastModified by Organization Detai ls LastModified Time None Recorded Concern Status LastModified by Organization Details LastModified Time None Recorded Payers Encounter Date Sequence Insurance Name Policy Number Policy Rojas Covered Member ID Rojas Member ID Guarantor Name 01/11/2025 1 [facility] - DOS ON OR AFTER 2022 - DUAL ELIGIBLE - [employer] OPTIONS AND ONE CARE (MEDICARE REPLACEMENT/ADV ANTAGE - HMO) Anisha Roberto [id number] Anisha Roberto Notes Date Note Type Note Provider Name and Address Organization Details Recorded Time 01/11/2025 text/html [facility] Nurse Triage Notes (Yousif Blankenship): Reason For Request: finger and shoulder pain Denies: Vale Flash, circumferential vale Vale reported with black tissue to the area Open skin area after a fall with uncontrolled bleeding Abscess/infection with streaking noted, presence of fever or without Chief Complaints: Extremity Pain PMH: Hypertension, Coronary Artery Disease, Osteoarthritis, Stroke PMH Reviewed at 01/11/2025 - :12 Allergies Reviewed at 01/11/2025 - :12 Comments: 79 y.o female complains of Extremity Pain Patient calling reporting pain in her R fingers and R shoulder. Patient states she has tried Tylenol with no relief in pain. Patient denies any known injury to R upper extremity. Patient does reports history of arthritis. Patient reports pain is increased in fingers and shoulder with movement. Patient reports nothing has relieved the pain. Patient denies any numbness or tingling. I provided information on the mobile health provider response time and advised the patient and/or caregiver to monitor reported signs and symptoms. I discussed the warning signs of when to seek emergency care -Mona Blankenship RN ..................... ..................... ..................... ..................... ..................... ..................... ............... Cat Sitter Note From Patrice Arcos: Dispatched to the above address for a 79 y/f with a cc of right shoulder pain. Proper ppe was worn throughout the call. Upon arrival: Pt AOx4 sitting in a fowlers position in the living room couch. Pt greeted [facility] and gave a verbal report. Pt stated that she has a hx of arthritis and for the past year has been having the same pain to her shoulder/knuckles. Pt stated that her PCP is aware and told to her drink Tylenol. Pt stated that the Tylenol does nothing to help her with the pain. Pt noted that she had PT initially when she started to have arthritis, but quickly stopped due to no help with pain. Pt noted that she was given Toradol 5 days ago which helped her for a couple of days, but now the pain is back. Pt noted that her PCP did not want her to be taking ibuprofen, but does not have a reason to why. Pt stated that there is nothing else bothering her and she has no other complaint. AOx4 - Airway: Patent - Breathing: equal chest rise and fall - LS: clear - Skin: pink, warm, dry - Pupils: PERRL - CMSx4 - Lower extremity: no edema . ABD: soft, non tender, no discoloration - Back: soft, non tender, no crepitus. Pt denied to sob/chest pain/abd pain/dizziness/nausea /vomiting/blood in urine/difficulty urinating/fever/diarr hea/constipation/fall s/head strikes/flu like symptoms. HEENT. skin in tact with no deformity. Pupils were equal and reactive to light bilaterally. Eyes tracking normally to six cardinal points of gaze. Nose and mouth were unobstructed. Trachea midline, jugular veins were nondistended in seated position. Face symmetrical with equal movement and sensation. Patient denied changes to vision or hearing and denied double vision. Tongue and uvula midline with palate raises symmetrically. No arm drift present, finger - nose test normal, no neglect noted. [facility]: gave red flags/pt education. Pt was notified that todays visit will be sent over to pt PCP, and her PCP will be aware that Tylenol is not helping. Education given o home remedies/warm compress. [facility] clear. All times approximate. ..................... ..................... ..................... ..................... ..................... ..................... ............... [facility] Consulted: Iliana Jules ..................... ..................... ..................... ..................... ..................... ..................... ............... Disposition: Fulfilled Iliana Jules MD [address] [facility],[address] [facility], [place], [phone], HARPREET HULL 01/11/2025 19:11:29 OBGyn Episode No OBEpisode recorded.
--- OUTSIDE RECORDS SUMMARY | 2025-03-23 17:52 | XMS_ITS | Continuity of Care Document ---
Author Organization [facility] Address [address] [place] [phone] Care Team Providers Care Echo Tech Name Role Phone HIM CCA OTHER Assessment Encounter Date Assessment Date Assessment LastModified by Organization Details LastModified Time 01/29/2025 01/29/2025 Evaluation in e field was performed by my aerial gunner superintendent colleague, as noted above, I provided real-time direction and supervision for this visit. This is a 79yo F with history of arthritis who presents complaining of increased pain. She has right hand and right shoulder pain, and two fingers on the right hand are bent inward and are painful. This feels like a normal flare of arthritis in her shoulder, but she's never had this problem with her fingers this badly before. She has seen orthopedics for her hand and was given a brace. Denies injury to the hand. No fever. PE: General: Awake & alert, NAD Respiratory: Chest rise equal bilat, no increased wob CV: Regular rate, normal peripheral perfusion MSK: RUE: Full ROM intact in shoulder. At the hand, the 3rd and 4th fingers are flexed at the ICP joints. Extremity neurovascularly intact. EKG: NSR, rate of 65. No STEMI. Impression: Chronic right shoulder pain Right hand trigger finger Plan: -VSS, appears well. -Rt shoulder pain: EKG wnl, likely chronic arthritis. Given 30mg IM ketorolac for pain. Can continue using other pain management modalities. -Rt hand: Appears to be trigger finger. Will need to follow up with orthopedics who she has seen before. In the meantime has been advised to wear the brace she has for the right hand. Likely needs steroid injections. Disposition: Remain at home We discussed the diagnostic uncertainty of home visits and the risk associated with this. In this case, the patient and I felt this to be an acceptable and reasonable amount of risk given the benefit of avoiding an ED visit. We discussed the need to seek care urgently/emergentl y in the setting of any new or worsening serious symptoms. [email or web address] Not available 01/29/2025 22:01:53 Plan of Treatment Reminders Order Date Submit Date Provider Last Modified By Organization Details Last Modified Time Details Appointments None recorded. Lab None recorded. Referral None recorded. Procedures None recorded. Surgeries None recorded. Imaging [facility]24 [facility] [address] [place] [address], [phone] 20:55:10 Medication Orders ketorolac 60 mg/2 mL intramuscul ar solution 2024 [id number], [address] [facility], [place], [place], [id number], 20:28:02 Patient TargetsNo targets recorded. Patient InstructionsNo instructions recorded. Reason for Referral None Reported. Results Created Date Observation Date Name Description Value Unit Range Abnormal Flag Note LastModifiedBy Organization Detail LastModifiedTime 01/30/2001/29/2025 elect rocar diogr am No observ ation record ed. acalthorpe [address], [phone] 01/29/2025 22:04:36 Result Notes None recorded. Medical Equipment None Reported. Allergies Allergen ID Allergen Name Allergen Category Reaction Reaction Severity Criticality Documentation Date Start Date Code Code System Note Provider Name and Address Organization Details Recorded Time 67711 rivastigm ine medicatio n Not available Not available Not available 01/18/2025 53989 9 RxNorm Not Available [facility] - production 5 13:28:34 2547 codeine medicatio n Not available Not available Not available 10/15/2022 2670 RxNorm Not Available [facility] - production 4 15:32:19 6284 amoxicill in medicatio n Not available Not available Not available 01/17/2024 723 RxNorm Not Available [facility] - production 4 15:32:19 6285 shellfish derived food,medi cation Not available Not available Not available 01/17/2024 Not Available [facility] - production 5 13:37:31 Medications Name Sig Start Date Stop Date Status Note LastModified by Organization Details LastModified Time arth pain rel(acetamino phen)650mg t TAKE 1 TABLET BY MOUTH EVERY 8 HOURS NEEDED active Not Available Not Available No t Available arthrts pain tab 650mg er active Not Available Not Available Not Available [facility] active Not Available Not Available Not [...] Available Vitals Date Recorded Body temperature Body weight Oxygen saturation Respiratory rate Body height Heart rate Systolic And Diastolic Provider Name and Address Organization Details Last Updated DateTime 97.7 [degF] 92877.5 6 g 99 % 20 /min 170.18 cm 67 /min 128/52 mm[Hg] Not Available [facility] - production 20:22:55 Social History None recorded. Functional Status None recorded. Mental Status None recorded. Family History Nothing Reported. Medical History No medical history recorded. Gynecological HistoryNo gynecological history recorded. Obstetrics History GPAL:G 0 P 0 0 0 0 Past Encounters Encounter ID Performer Location Encounter Start Date Encounter Closed Date Diagnosis/Indication Diagnosis SNOMED-CT Code Diagnosis ICD10 Code Diagnosis IMO Codes Diagnosis Note [id number] Javy Carmona MD [address] [address] 01/06/2025 15:01:02 01/07/2025 11:16:39 Arthritis 2959169 M19.90 [id number] Iliana Jules MD [address] [address] 01/11/2025 17:51:16 01/11/2025 22:45:15 Osteoarthritis of multiple joints 329442893 M15.9 [id number] Iliana Jules MD [address] [address] 01/18/2025 17:02:23 01/19/2025 00:22:45 Osteoarthritis 714835873 M19.90 [id number] Elena Rivera MD [address] [address] 01/29/2025 20:22:47 01/30/2025 12:10:57 Pain of right shoulder region 0084093055 M25.511 [id number] Trigger fi nger of right hand 4906301236 0907571 M65.30 [id number] Health Concerns Section Related Observation LastModified by Organization Detai ls LastModified Time None Recorded Concern Status LastModified by Organization Details LastModified Time None Recorded Payers Encounter Date Sequence Insurance Name Policy Number Policy Rojas Covered Member ID Rojas Member ID Guarantor Name 01/29/2025 1 [facility] - DOS ON OR AFTER 2022 - DUAL ELIGIBLE - LONG-TERM OPTIONS AND ONE CARE (MEDICARE REPLACEMENT/ADV ANTAGE - HMO) Anisha Roberto [id number] Anisha Fabiola Pardeep Notes Date Note Type Note Provider Name and Address Organization Details Recorded Time 01/29/2025 text/html ROS as noted in the [facility] Nurse Triage Notes (Yuok Evans): Reason For Request: Pt reporting shoulder pain>finger pain>lower back pain>arthritis> Denies: Falls with head strike and LOC Falls from a standing position, no LOC, patient is amnestic to the event Falls with isolated injury and deformity noted to limb Falls with inability to move post fall Cool extremities after fall or injury Weakness with fall, able to move all extremities Chief Complaints: Extremity Pain PMH: Hypertension, Coronary Artery Disease, Osteoarthritis, Stroke, Depression PMH Reviewed at 01/29/2025 Allergies Reviewed at 01/29/2025: Comments: 79 y.o female complains of Extremity Pain Patient symptoms persist but has flare ups of arthritis and she believes she is going through one now. Started last night right shoulder pain and right fingers except for thumb and endorses lower back pain. denies any falls or injuries. Patient has tried icy hot with very little relief. Denies any kidney issues and denies being on any blood thinners. I provided information on the mobile health provider response time and advised the patient and/or caregiver to monitor reported signs and symptoms. I discussed the warning signs of when to seek emergency care. Glue Sprayer Organization Information for [facility] Business Legal Name: [employer]. Address: [address] [place] [address], Automobile Racer: Gordon Escamilla MD CLIA No.: [id number] Glue Sprayer POC Test Results from [facility] EKG (21:01:34) EKG test performed. Reason for missing picture: sinus without ectopy. Picture attached. ................... ................... ................... ................... ................... ................... ................... ........ Glue Sprayer Note From Gina Lopez: SC2 dispatched to [address] [facility], [address], [place] for extremity pain. Pt c/o pain in [...] normal. Patients lower extremities show no edema. [facility] [place] and the assessment was shared. An EKG was obtained. Pt was given 30mg of Ketorolac in her left deltoid. Pt advised to follow up with ortho for the fingers. SC2 clears without incident. [facility] Lab Orders: electrocardiogram: Performed [facility] Medication Orders: ketorolac 60 mg/2 mL intramuscular solution: Performed ................... ................... ................... ................... ................... ................... ................... ........ [facility] Consulted: Elena Rivera ................... ................... ................... ................... ................... ................... ................... ........ Disposition: Fulfilled Elena Rivera MD [address] [facility],[address], [place], [address], [employer] 01/29/2025 22:02:12 OBGyn Episode No OBEpisode recorded.
--- OUTSIDE RECORDS SUMMARY | 2025-03-23 17:52 | XMS_ITS | Encounter Summary ---
Author Organization [facility] Address [address] [place] [address] Care Team Providers Care Sales Support Associate Name Role Phone Jannie Yang MD Primary Care Provider [phone] Reason for Visit * Reason Comments HOME HEALTH CERT Encounter Details Date Type Department Care Team (Late st Contact Info) Description 03/19/2025 Billing Patient Not Present Internal Medicine - [place] [address] [facility] [place] [place] [phone] Jannie Yang MD [address] [place], [place] Memory deficit following cerebral infarction (Primary Dx); Hypertensive chronic kidney disease with stage 1 through stage 4 chronic kidney disease, or unspecified chronic kidney disease; Stage 3 chronic kidney disease, unspecified whether stage 3a or 3b CKD (CMS/HCC V24, CMS/HCC V28); Anxiety disorder, unspecified type; Recurrent major depressive disorder, remission status unspecified (CMS/HCC V24); Peripheral vascular disease, unspecified (CMS/[facility] V24); Type 2 diabetes mellitus without complications, unspecified whether electric scoop operator insulin use (CMS/HCC V24, CMS/HCC V28) Social History Tobacco Use Types Packs/Day Years Used Date Smoking Tobacco: Never Smokeless Tobacco: Never Alcohol Use Standard Drinks/Week Comments No 0 (1 standard drink = 0.6 oz pur e alcohol) Housing Instability Answer Date Recorde d Are you worried that in the next 2 months you may not have stable housing? No 10/01/2024 Food Access & Nutrition Answer Date Rec orded Do you have access to a vari ety of food including fruits and vegetables? Yes 10/01/2024 Health Literacy Answer Date Recorded How often do you need to hav e someone help you when you read instructions, pamphlets, or other written material from your doctor or pharmacy? Never 10/01/2024 Caregiver: How often do you need to have someone help you when you read instructions, pamphlets, or other written material from your doctor or pharmacy? Not on file 10/01/2024 Financial Risk Answer Date Recorded How hard is it for you to pa y for the very basics like food, housing, medical care, and air conditioning / heating? Somewhat hard 10/01/2024 Transportation Answer Date Recorded Has the lack of transportati on kept you from meetings, work, or from getting things needed for daily living? No Has the lack of transportati on kept you from medical appointments or from getting medications? No 10/01/2024 Social Isolation Answer Date Recorded How often do you feel lonely or isolated from th ose around you? Never 10/01/2024 Food Risk Answer Date Recorded Within the past 12 months we worried whether our food would run out before we got money to buy more. Often true 025 Within the past 12 months th e food we bought just didn't last and we didn't have money to get more. Sometimes true 10/01/2024 Dependent Care Answer Date Recorded Do you need help finding or paying for care for your loved ones. For example, director of child welfare services or elderly care for an older adult? No 10/01/2024 Education Answer Date Recorded Do you think completing more education or training, like finishing a GED, going to college, or learning a trade, would be helpful for you? No 10/01/2024 Employment and Income Answer Date Recor ded During the last four weeks, have you been actively looking for work? No 10/01/2024 Living Situation Answer Date Recorded What is your living situation? Unrecognized valu e 10/01/2024 Comments No Sex and Gender Information Value Date Recorded Sex Assigned at Not on file Legal Sex Female 2:39 AM EST Gender Identity Not on file Sexual Orientation Not on file documented as of this encounter Progress Notes * Katlin Goodman MA - 03/19/2025 10:51 AM EST Start of Care Date: 07/17/24 Date of certification period: 03/14/25-05/12/25 Date of service = signature date 03/16/25 Hospice patient: NO Home Care Agency: [employer] [facility] Recertification Code [id number] Initial Code G0180 documented in this encounter Plan of Treatment Upcoming Encounters Date Type Department Care Team (Late st Contact Info) Description 03/24/2025 1:30 PM EST Office Visit Orthopedic Surgery - [place] [address] [place] [phone] Elena Rai PA [address] [facility] [address] [place] [phone] 06/08/2025 1:30 PM EST Consult Nephrology - [address] [phone] Puma Domingo MD [address] [facility] [address] [place] [address] 06/22/2025 1:15 PM EST Office Visit Internal Medicine - [address] [phone] Real Flores NP 305 [place] [address] documented as of this encounter Goals Goal Patient Goal Type Associated Problems Recent Progress Patient-Stated? Author <enter goal here> General On track( 025 12:44 PM EDT) Yes Annabel Sosa, OT Note: OT PATIENT GOAL HAVE LESS PAIN AND MORE USE DOMINANT RIGHT HAND pt goals General On track( 3:07 PM EST) Yes Jeancarlos Grewal Note: To have less pain in my shoulder and be able to use it better OT STGs 4-6 visits General On track( 025 3:07 PM EST) No Jeancarlos Grewal Note: Pt will report R sh pain <=5/10 at rest at beginning of session. Pt will demo R sh AROM improved by >=10* in order to improve their ability to don a pull-over sweater. Pt will demo R datastage consultant strength improved by >=5lbs in order to improve their ability to open jars. Pt will demo R pinch strength improved by >=2lbs in order to improve their ability to open zip-lock bags. Pt will demo increased functional use of RUE evidenced by Qdash score <=65 in order to improve their ability to complete crossword puzzles. Pt will perform initial HEP Mod I. OT LTGs 10-12 visits General On track( 025 3:07 PM EST) No Jeancarlos Grewal Note: Pt will report R sh pain <=3/10 at rest at beginning of session. Pt will demo R sh AROM improved by >=20* in order to improve their ability to reach overhead cabinets. Pt will demo R datastage consultant strength improved by >=10lbs in order to improve their ability to hold a coffee mug. Pt will demo R pinch strength improved by >=4lbs in order to improve their ability to zip their jacket. Pt will demo increased functional use of RUE evidenced by Qdash score <=50 in order to improve their ability to participate in senior community socials. Pt will perform updated HEP Mod I. documented as of this encounter Visit Diagnoses Diagnosis Memory deficit following cerebral infarction- Primary Hypertensive chronic kidney disease with stage 1 through stage 4 chronic kidney disease, or unspecified chronic kidney disease Stage 3 chronic kidney disease, unspecified whether stage 3a or 3b CKD (CMS/HCC V24, CMS/HCC V28) Anxiety disorder, unspecified type Recurrent major depressive disorder, remission status unspecified ([facility] V24) Peripheral vascular disease, unspecified ([facility] V24) Peripheral vascular disease, unspecified Type 2 diabetes mellitus without complications, unspecified whether intermediate insulin use ([facility] V24, [facility] V28) documented in this encounter Additional Health Concerns Assessment Noted Time PHQ-9 Depression Total Score: 1 10/02/19 9:24 AM EDT documented as of this encounter Care Teams Sales Support Associate Relationship Specialty Start Date End Date Jannie Yang MD [address] [facility] [place] [address] PCP - General Internal Medicine 01/05/25 documented as of this encounter
--- OUTSIDE RECORDS SUMMARY | 2025-03-23 17:52 | XMS_ITS | Encounter Summary ---
Author Organization [facility] Address [address] [facility] [address] [place] [address] Encounters * CPT with Medical [facility] at [facility] on 2025-01-06 { reasonForRequest : Patient has right hand pain going into her Shoulder. ,&quo t;patientReports : , denies :[ Falls with head strike and LOC ,"Falls from a standing position, no LOC, patient is amnestic to the event , Falls with isolated injury and deformity noted to limb , Falls with inability to move post fall", Cool extremities after fall or injury , Weakness with fall, able to move all extremities ], chiefComplaints : Extremity Pain , pmh : Hypertension, Coronary Artery Disease, Osteoarthritis, Stroke , allergies : Codeine, Amox icillin, Shellfish Derived , otherAllergies :null, painAssessment : Level 7 out of 10 , visitOutcome : , additionalComments : 79y.o female complains of Extremity Pain\n\nPatient self-reporting symptoms \nR hand and arm/shoulderpain - noticed a couple of days ago and not improving\nTook tylenol w/ minimal effect \nRates pain 6-7/10, difficult to sleep last night due to pain \nHistory of arthritis - usually in the back - never in hand/shoulder \nAble to move hand and shoulder normally - painful when moving shoulder \nHand/arm/shoulder appear normal - denies swelling or redness or bruising \nUnsure if she's on anticoagulation\nDenies any recent kidney issues \nRequesting instED visit \n\nI provided information on the mobile health provider response time and advised the patient and/or caregiver to monitor reported signs and symptoms. I discussed the warning signs of when to seek emergency care. } Sent to a call for a pt complaining of right hand pain. SC8 arrives on scene, pt is alert and oriented, airway is patent. Pt complains of right wrist/hand pain and right shoulder pain. Pt has historyof arthritis, and has chronic right hand/shoulder pain. Pt states she had physical therapy for hand/wrist 4-5 months ago, but had a flare start yesterday. Pt denies little, dizziness, cp, sob, n/v/d, abdpain, fever, or loc. Allergies verified: Codeine, Amoxicillin, Shellfish; Pt states she takes Tylenol BID. Pt unsure what medications she takes as they are locked up. Pt denies history of CKD or GI bleed/ulcers. BP:144/80, P:63, RR:18, SpO2:99% RA, T:98.3; Head: unremarkable; Lung sounds: clear bilaterally; Abdomen: soft, non-tender, no distention; Back: unremarkable; Extremities: right shoulder/right hand tenderness; Skin: pink, warm, dry; C consulted and orders Toradol 15mg IM. 5 med rightsverified; Toradol 15mg IM administered; Pt advised to follow up with PCP. Red flags discussed. Pt has no further questions. IV_(FLUIDS_AND/OR_MEDICATION), MEDICATION_IM, ORAL_MEDICATION, WOUND_CARE, ORTHOSTATIC_VITAL_SIGNS Written by Medical instED on 2025-01-06
--- OUTSIDE RECORDS SUMMARY | 2025-03-23 17:52 | XMS_ITS | Encounter Summary ---
Author Organization [facility] [address] Address [address] [place] [address] Care Team Providers Care Security Sales Consultant Name Role Phone Jannie Yang MD Primary Care Provider [phone] Encounter Details Date Type Department Care Team (Late st Contact Info) Description 03/15/2025 Results Follow-Up Internal Medicine - [address] [phone] Vanita Montes, [facility] [address] [place] [address] Social History Tobacco Use Types Packs/Day Years [...] care for your loved ones. For example, children counselor or elderly care for an older adult? [...] on file documented as of this encounter Plan of Treatment Upcoming Encounters Date Type Department Care Team (Late st Contact Info) Description 03/24/2025 1:30 PM EST Office Visit Orthopedic Surgery - [place] [address] [facility] [address] [place] [address] Elena Rai PA [address] [facility] [address] [place] [address] 06/08/2025 1:30 PM EST Consult Nephrology - [facility] [address] [place], [place] [phone] Puma Domingo MD [address] [place] [address] 06/22/2025 1:15 PM EST Office Visit Internal Medicine - [address] [phone] Real Flores, CONCE[employer]ION [address] [place], [place] documented as of this encounter Goals Goal Patient Goal Type Associated Problems Recent Progress Patient-Stated? Author <enter goal here> General On track( 12:44 PM EDT) Yes Annabel Sosa, OT Note: OT PATIENT GOAL HAVE LESS PAIN AND MORE USE DOMINANT RIGHT HAND pt goals General On track( 3:07 PM EST) Yes Jeancarlos Grewal Note: To have less pain in my shoulder and be able to use it better OT STGs 4-6 visits General On track( 3:07 PM EST) No Jeancarlos Grewal Note: Pt will report R sh pain <=5/10 at rest at beginning of session. Pt will demo R sh AROM improved by >=10* in order to improve their ability to don a pull-over sweater. Pt will demo R supply chain engineer strength improved by >=5lbs in order to [...] OT LTGs 10-12 visits General On track( 3:07 PM EST) Jeancarlos Overton Note: Pt will report R sh pain <=3/10 at rest at beginning of session. Pt will demo R sh AROM improved by >=20* in order to improve their ability to reach overhead cabinets. Pt will demo R supply chain engineer strength improved by >=10lbs in order to improve their ability to hold a coffee mug. Pt will demo R pinch strength improved by >=4lbs in order to improve their ability to zip their jacket. Pt will demo increased functional use of RUE evidenced by Qdash score <=50 in order to improve their ability to participate in [employer] community socials. Pt will perform updated HEP Mod I. documented as of this encounter Visit Diagnoses Not on filedocumented in this encounter Additional Health Concerns Assessment Noted Time PHQ-9 Depression Total Score: 1 10/02/19 9:24 AM EDT documented as of this encounter Care Teams Security Sales Consultant Relationship Specialty Start Date End Date Jannie Yang MD [address] [place] [address] [place] [address] PCP - General Internal Medicine 01/05/25 documented as of this encounter
--- OUTSIDE RECORDS SUMMARY | 2025-03-23 17:52 | XMS_ITS | Continuity of Care Document ---
Author Organization [facility] Address [address] [place] [phone] Care Team Providers Care Body Designer Name Role Phone HIM CCA OTHER Assessment Encounter Date Assessment Date Assessment LastModified by Organization Details LastModified Time 01/18/2025 01/18/2025 I provided real -time medical direction via phone for this encounter and was available for additional phone-based assistance as needed. I have reviewed and agree with the Assessment and Plan as documented by the Catalogue Illustrator. Patient given the opportunity to ask questions. Our service contacted for an assessment of: Osteoarthritis As per above, patient with pain primarily in the upper extremities and her hands and larger joints in the lower extremity. Has a known history of osteoarthritis with poor control of pain particularly in times when the weather changes.. She has normal renal function. She is hydrating well and has no problems with p.o. intake of solids and liquids. Per food service technician on the scene, vital signs are stable the patient is afebrile. Impression: Osteoarthritis Plan: Toradol x1, 15 mg IM Allergies: Reviewed PCP f/u: May benefit from improved control from osteoarthritis with a daily regimen. Consider topicals as well as physical therapy. We discussed the diagnostic uncertainty of home visits and the risk associated with this. In this case, the patient and I felt this to be an acceptable and reasonable amount of risk given the benefit of avoiding an ED visit. We discussed the need to seek care urgently/emergent ly in the setting of any new or worsening serious symptoms, particularly fever chills [email or web address] Not available 01/18/2025 17:05:58 Plan of Treatment Reminders Order Date Submit Date Provider Last Modified By Organization Details Last Modified Time Details Appointments None recorded. Lab None recorded. Referral None recorded. Procedures None recorded. Surgeries None recorded. Imaging None recorded. Medication Orders ketorolac 15 mg/mL injection solution 2024 025 [email or web address] [id number], [address], [place], [place], [phone], 17:05:59 Patient TargetsNo targets recorded. Patient InstructionsNo instructions recorded. Reason for Referral None Reported. Results Created Date Observation Date Name Description Value Unit Range Abnormal Flag Note LastModifiedBy Organization Detail LastModifiedTime 01/30/2001/29/2025 antonia newton am No observ ation record ed. [facility] [address], [address] 01/29/2025 22:04:36 Result Notes None recorded. Medical Equipment None Reported. Allergies Allergen ID Allergen Name Allergen Category Reaction Reaction Severity Criticality Documentation Date Start Date Code Code System Note Provider Name and Address Organization Details Recorded Time 34976 rivastigm ine medicatio n Not available Not available Not available 01/18/2025 79288 9 RxNorm Not Available [facility] - production [...] Available Not Available Not Available med sync [facility] active Not Available Not Available Not Available [...] Available No t Available Vitals Date Recorded Oxygen saturation Body temperature Respiratory rate Heart rate Systolic And Diastolic Provider Name and Address Organization Details Last Updated DateTime 5 98 % 98.8 [degF] 16 /min 77 /min 160/70 mm[Hg] Not Available [facility] 5 17:02:26 Social History None recorded. Functional Status None recorded. Mental Status None recorded. Family History Nothing Reported. Medical History No medical history recorded. Gynecological HistoryNo gynecological history recorded. Obstetrics History GPAL:G 0 P 0 0 0 0 Past Encounters Encounter ID Performer Location Encounter Start Date Encounter Closed Date Diagnosis/Indication Diagnosis SNOMED-CT Code Diagnosis ICD10 Code Diagnosis IMO Codes Diagnosis Note [id number] Javy Carmona MD [facility] ED Medical [facility] [address] [place] [address] 01/06/2025 15:01:02 01/07/2025 11:16:39 Arthritis 0168923 M19.90 [id number] Iliana Jules MD [address] [address] 01/11/2025 17:51:16 01/11/2025 22:45:15 Osteoarthritis of multiple joints 576048385 M15.9 [id number] Iliana Jules MD [address] [address] 01/18/2025 17:02:23 01/19/2025 00:22:45 Osteoarthritis 389871989 M19.90 [id number] Health Concerns Section Related Observation LastModified by Organization Detai ls LastModified Time None Recorded Concern Status LastModified by Organization Details LastModified Time None Recorded Payers Encounter Date Sequence Insurance Name Policy Number Policy Rojas Covered Member ID Rojas Member ID Guarantor Name 01/18/2025 1 [facility] - DOS ON OR AFTER 2022 - DUAL ELIGIBLE - SENIOR LIVING OPTIONS AND ONE CARE (MEDICARE REPLACEMENT/ADV ANTAGE - HMO) Anisha Roberto [id number] Anisha Roberto Notes Date Note Type Note Provider Name and Address Organization Details Recorded Time 01/18/2025 text/html HPI: Mbr called in to the CR[facility], c/o pain to RUE-hand, fingers, wrist, shoulder. Mbr report onset of pain a couple of weeks ago. Mbr states she had instED visit recently and had toradol injection and pain has now returned. Mbr would like another visit today. Mbr denies fever, chills, SOB, CP, numbness, tingling, swelling. Mbr rates pain level 5-6/10. Mbr is able to move extremity but pain increases with movement. Mbr reports hx of arthritis. Mbr taking tylenol w/o effect. This technical report writer triaged mbr to contact PCP, mbr states she did and soonest appt available was scheduled for 02/09. Mbr was advised instED would be submitted and to keep PCP appt as scheduled. Mbr was advised if new/worsening sx, to call back. .................. .................. .................. .................. .................. .................. .................. ............... [facility] Nurse Triage Notes (Loly Gutierrez): Reason For Request: pain Chief Complaints: Extremity Pain PMH: Hypertension, Coronary Artery Disease, Osteoarthritis, Stroke PMH Reviewed at 01/18/2025 Allergies Reviewed at 01/18/2025: Comments: HPI reviewed .................. .................. .................. .................. .................. .................. .................. ............... Catalogue Illustrator Note From Bear, Sonny: SC08 dispatched to the address listed above for the report of a female democrat with extremity pain. Arrival on scene, patient was found inside apartment seated in chair, alert and oriented x4, patent airway, breathing non labored speaking in complete sentences, skin WPD in no immediate distress. +/= Chest rise. -SOB, -CP, -NVD, -Trauma, -Fever. GCS 15. Patient reports on going right upper extremity pain x3 weeks limited to her joints including finger, wrist, and shoulder. Patient reports reduced range of motion, and pain upon flexion or rotation. Patient reports normal sensation and motor function, denies any numbness, tingling, or arm changing color. Patient additionally reports history of arthritis. Patient denies any trauma, denies fever/chills, denies abdominal pain, denies chest pain, denies shortness of breath, denies NVD. Patient reports she was seen by Erin last week, received Toradol shot which helped and is looking to receive another dose of Toradol. Patient denies any kidney disease, denies allergies to NSAID, denies recent trauma, denies taking any blood thinners, denies taking Ibuprofen today. Patient reports that she took Tylenol earlier with minimal relief. Patient vital signs obtained as noted. [facility] consulted, provided orders for 15mg Toradol IM. 15mg Toradol IM administered in left deltoid without incident, six patient rights verified prior. Patient advised she can continue with ice/heat along with Tylenol for pain management. Patient advised that she contacted PCP and has appointment in January. Red flags discussed with patient and advised to call 911 if her condition worsens. SC08 Clear. [facility] Medication Orders: ketorolac 15 mg/mL injection solution: Administered .................. .................. .................. .................. .................. .................. .................. ............... [facility] Consulted: Iliana Jules .................. .................. .................. .................. .................. .................. .................. ............... Disposition: Fulfilled Iliana Jules MD [address] [facility], [place], [address], DEBBIE - Monitor, Get Me Listed 01/18/2025 17:38:11 OBGyn Episode No OBEpisode recorded.
--- OUTSIDE RECORDS SUMMARY | 2025-03-23 17:52 | XMS_ITS | Continuity of Care Document ---
Author Name [facility], Medical Address [address] [place] [address] Organization Unknown Address [address] [place] [address] Medications No known medications Problems No known problems
--- OUTSIDE RECORDS SUMMARY | 2025-03-23 17:52 | XMS_ITS | Continuity of Care Document ---
Author Name [facility], Medical Address [address] [place] [address] Organization Unknown Address [address] [place] [address] Medications No known medications Problems No known problems
--- OUTSIDE RECORDS SUMMARY | 2025-03-23 17:52 | XMS_ITS | Encounter Summary ---
Author Organization [facility] Address [address] [place] [address] Care Team Providers Care Research Test Engine Operator Name Role Phone Jannie Yang MD Primary Care Provider [phone] Encounter Details Date Type Department Care Team (Late st Contact Info) Description 02/11/2025 Results Follow-Up Internal Medicine - [address] [phone] Real Flores NP [address] [place] [address] Social History Tobacco Use Types Packs/Day Years [...] care for your loved ones. For example, child care supervisor or elderly care for an older adult? [...] PM EST Office Visit Orthopedic Surgery - [place] [address] [facility] [address] [place] [address] Elena Rai PA [address] [facility] [address] [place] [address] 06/08/2025 1:30 PM EST Consult Nephrology - [address] [phone] Puma Domingo MD [address] [place] [address] 06/22/2025 1:15 PM EST Office Visit Internal Medicine - [address] [phone] Real Flores, CONCEPCION [address] [place], [place] documented as of this encounter Goals Goal Patient Goal Type Associated Problems Recent Progress Patient-Stated? Author <enter goal here> General On track(08/14/19 12:44 PM EDT) Yes Annabel Sosa, OT Note: OT PATIENT GOAL HAVE LESS PAIN AND MORE USE DOMINANT RIGHT HAND documented as of this encounter Visit Diagnoses Not on filedocumented in this encounter Additional Health Concerns Assessment Noted Time PHQ-9 Depression Total Score: 1 10/02/19 9:24 AM EDT documented as of this encounter Care Teams Research Test Engine Operator Relationship Specialty Start Date End Date Jannie Yang MD [address] [place] [address] PCP - General Internal Medicine 01/05/25 documented as of this encounter
--- OUTSIDE RECORDS SUMMARY | 2025-03-23 17:52 | XMS_ITS | Continuity of Care Document ---
Author Name [facility], Medical Address [address] [place] [address] Organization Unknown Address [address] [place] [address] Medications No known medications Problems No known problems
--- OUTSIDE RECORDS SUMMARY | 2025-03-23 17:52 | XMS_ITS | Encounter Summary ---
Author Organization [facility] Address [address] [place] [address] Care Team Providers Care Superintendent Division Name Role Phone Jannie Yang MD Primary Care Provider [phone] Encounter Details Date Type Department Care Team (Late st Contact Info) Description 02/18/2025 Results Follow-Up Internal Medicine - [address] [address] Real Flores NP [address] [place] [address] Social History Tobacco Use Types Packs/Day Years [...] for your loved ones. For example, child monitor or elderly care for an older adult? [...] PM EST Office Visit Orthopedic Surgery - [place] [address] [facility] [address] [place] [address] Elena Rai PA [address] [facility] [address] [place] [address] 06/08/2025 1:30 PM EST Consult Nephrology - [address] [phone] Puma Domingo MD [address] [facility] [address] [place] [address] 06/22/2025 1:15 PM EST Office Visit Internal Medicine - [address] [phone] Real Flores NP [address] [place], [place] Scheduled Orders Name Type Priority Associated Diagnoses Orde r Schedule Basic metabolic panel Lab Routine Worsening renal function Expected: 02/25/2025, Expires: 04/20/2025 documented as of this encounter Goals Goal Patient Goal Type Associated Problems Recent Progress Patient-Stated? Author <enter goal here> General On track(08/14/19 12:44 PM EDT) Yes Annabel Sosa, OT Note: OT PATIENT GOAL HAVE LESS PAIN AND MORE USE DOMINANT RIGHT HAND documented as of this encounter Visit Diagnoses Diagnosis Worsening renal function- Primary documented in this encounter Additional Health Concerns Assessment Noted Time PHQ-9 Depression Total Score: 1 10/02/19 9:24 AM EDT documented as of this encounter Care Teams Superintendent Division Relationship Specialty Start Date End Date Jannie Yang MD [address] [place] [address] PCP - General Internal Medicine 01/05/25 documented as of this encounter
--- OUTSIDE RECORDS SUMMARY | 2025-03-23 17:52 | XMS_ITS | Continuity of Care Document ---
Author Name [facility], Medical Address [address] [place] [address] Organization Unknown Address [address] [place] [address] Medications No known medications Problems No known problems
--- OUTSIDE RECORDS SUMMARY | 2025-03-23 17:53 | XMS_ITS | Continuity of Care Document ---
Author Organization [facility] Address [address] [place] [phone] Care Team Providers Care Info Analyst Name Role Phone HIM CCA OTHER Assessment Encounter Date Assessment Date Assessment LastModified by Organization Details LastModified Time 01/06/2025 01/06/2025 I have reviewed and agree with the Assessment and Plan as documented by the Char Filter Operator Helper. I provided real-time medical direction via phone [...] redness swelling or warmth to suggest infection. Plan to treat with ketorolac and have patient follow-up with patient's PCP. pallfather Not available 01/07/2025 10:28:04 Plan of Treatment Reminders Order Date Submit Date Provider Last Modified By Organization Details Last Modified Time Details Appointments None recorded. Lab None recorded. Referral None recorded. Procedures None recorded. Surgeries None recorded. Imaging None recorded. Medication Orders ketorolac 15 mg/mL injection solution 2024 025 [id number], [address] [facility], [place], [place], [id number], 15:03:18 Patient TargetsNo targets recorded. Patient InstructionsNo instructions recorded. Reason for Referral None Reported. Results Created Date Observation Date Name Description Value Unit Range Abnormal Flag Note LastModifiedBy Organization Detail LastModifiedTime 01/30/2001/29/2025 elect maldonado newton am No observ ation record ed. [email or web address] [address], [address] 01/29/2025 22:04:36 Result Notes None recorded. Medical Equipment None Reported. Allergies Allergen ID Allergen Name Allergen Category Reaction Reaction Severity Criticality Documentation Date Start Date Code Code System Note Provider Name and Address Organization Details Recorded Time 99933 rivastigm ine medicatio n Not available Not available Not available 01/18/2025 55330 9 RxNorm Not Available [facility] - production [...] Not Available Not Available No t Available uTrack TVToBreezeplay Ultra Test strips DIRECTED TO TEST BLOOD [...] Available No t Available Vitals Date Recorded Heart rate Oxygen saturation Respiratory rate Body height Body temperature Body weight Systolic And Diastolic Provider Name and Address Organization Details Last Updated DateTime 5 63 /min 99 % 18 /min 170.18 cm 98.3 [degF] 92482.5 2 g 144/80 mm[Hg] Not Available [facility] - production 5 15:01:07 Social History None recorded. Functional Status None recorded. Mental Status None recorded. Family History Nothing Reported. Medical History No medical history recorded. Gynecological HistoryNo gynecological history recorded. Obstetrics History GPAL:G 0 P 0 0 0 0 Past Encounters Encounter ID Performer Location Encounter Start Date Encounter Closed Date Diagnosis/Indication Diagnosis SNOMED-CT Code Diagnosis ICD10 Code Diagnosis IMO Codes Diagnosis Note [id number] Javy Carmona MD [facility] ED Medical [facility] [address] [place] [address] 01/06/2025 15:01:02 01/07/2025 11:16:39 Arthritis 3981912 M19.90 43194 Health Concerns Section Related Observation LastModified by Organization Detai ls LastModified Time None Recorded Concern Status LastModified by Organization Details LastModified Time None Recorded Payers Encounter Date Sequence Insurance Name Policy Number Policy Rojas Covered Member ID Rojas Member ID Guarantor Name 01/06/2025 1 [facility] - DOS ON OR AFTER 2022 - DUAL ELIGIBLE - [employer] AND ONE [employer] (MEDICARE REPLACEMENT/ADV ANTAGE - HMO) Anisha Pardeep [id number] Anisha Hicks Pardeep Notes Date Note Type Note Provider Name and Address Organization Details Recorded Time 01/06/2025 text/html CRC Nurse Triage Notes (Meme Connor): Reason For Request: Patient has right hand pain going into her Shoulder. Denies: Falls with head strike and LOC [...] Artery Disease, Osteoarthritis, Stroke PMH Reviewed at 01/06/2025 - :37 Allergies Reviewed at 01/06/2025 - :37 Pain Assessment: Level 7 out of 10 Comments: 79 y.o female complains of Extremity Pain Patient self-reporting symptoms R hand and arm/shoulder pain - noticed a couple of days ago and not improving Took tylenol w/ minimal effect Rates pain 6-7/10, difficult to sleep last night due to pain History of arthritis - usually in the back - never in hand/shoulder Able to move hand and shoulder normally - painful when moving shoulder Hand/arm/shoulder appear normal - denies swelling or redness or bruising Unsure if she's on anticoagulation Denies any recent kidney issues Requesting [facility] visit I provided information on the mobile health provider response time and advised the patient and/or caregiver to monitor reported signs and symptoms. I discussed the warning signs of when to seek emergency care. ..................... ..................... ..................... ..................... ..................... ..................... ............... Char Filter Operator Helper Note From Jamila Nolan: Sent to a call for a pt complaining of right hand pain. [facility] arrives on scene, pt is alert and oriented, airway is patent. Pt complains of right wrist/hand pain and right shoulder pain. Pt has history of arthritis, and has chronic right hand/shoulder pain. Pt states she had physical therapy for hand/wrist 4-5 months ago, but had a flare start yesterday. Pt denies little, dizziness, cp, sob, n/v/d, abd pain, fever, or loc. Allergies verified: Codeine, Amoxicillin, Shellfish; Pt states she takes Tylenol BID. Pt unsure what medications she takes as they are locked up. Pt denies history of CKD or GI bleed/ulcers. BP:144/80, P:63, RR:18, SpO2:99% RA, T:98.3; Head: unremarkable; Lung sounds: clear bilaterally; Abdomen: soft, non-tender, no distention; Back: unremarkable; Extremities: right shoulder/right hand tenderness; Skin: pink, warm, dry; [facility] consulted and orders Toradol 15mg IM. 5 med rights verified; Toradol 15mg IM administered; Pt advised to follow up with PCP. Red flags discussed. Pt has no further questions. [facility] Medication Orders: ketorolac 15 mg/mL injection solution: Administered ..................... ..................... ..................... ..................... ..................... ..................... ............... [facility] Consulted: Javy Carmona ..Chris.................. ..................... ..................... ..................... ..................... ..................... ............... Disposition: Fulfilled Javy Carmona MD [address] [place] [address],[address], [place], [address], HARPREET HULL 01/07/2025 10:28:13 OBGyn Episode No OBEpisode recorded.
--- OUTSIDE RECORDS SUMMARY | 2025-03-23 17:53 | XMS_ITS | Clinical Summary ---
Author Organization [address] [facility] Address [address] [place] [address] Phone Care Team Providers Care Enrichment Assistant Name Role Phone Jannie Yang MD Primary Care Provider [phone] Allergies Active Allergy Reactions Criticality Noted Date Comments Amoxicillin Trihydrate 06/03/2005 mouth soreness Codeine Other 11/30/2013 Funny feeling in the head Rivastigmine Headache 01/22/2022 Shellfish Containing Products Hives High 09/18/2021 Medications ammonium lactate (AMLACTIN) 12 % cream Apply thin film to area twice a day 01/27/20 22 Active blood-glucose meter kit Blood Glucose Monitoring Suppl (ONE TOUCH ULTRA SYSTEM KIT) w/Device Kit Use to check blood sugar 2 times daily 12/25/19 23 Active camphor-methyl salicyl-menthoL (Salonpas) 3.1-10-6 % adhesive patch,medicated Apply 1 Applicator topically 2 times daily as needed for Other (shoulder pain). 01/09/20 23 Active clobetasoL (TEMOVATE) 0.05 % ointment apply to the affected areas on the scalp 1-2 times daily as needed for itching 01/27/20 22 Active fexofenadine (CYNTHIA) 180 mg tablet Take 1 Tablet by mouth daily. 12/03/19 24 Active polyethylene glycol (Miralax) 17 gram/dose oral powder Take 17 g by mouth daily. 05/23/19 24 Active ONETOUCH DELICA LANCETS MISC OneTouch Delica Lancets [facility] Apply 1 Stick topically 2 times daily. 12/25/19 23 Active menthol 5 % adhesive patch,medicated Apply 1 Patch topically daily. Apply to affected area in am and remove in pm when needed for lower back pain as needed 01/27/20 22 Active Autolet lancing device Lancet Devices (One Touch Delica Lancing Dev) [facility] Use to check blood sugar 2 times daily 07/16/19 24 Active blood sugar diagnostic, disc strip GLUCOSE BLOOD TEST STRIPS (ASCENSIA AUTODISC ,ONE TOUCH ULTRA TEST ) STRIP Apply 1 Strip topically 2 times daily. 07/16/19 24 Active melatonin 10 mg capsule Take 1 capsule (10 mg total) by mouth at bedtime. 90 capsule 06/30/19 25 Active meclizine (ANTIVERT) 12.5 mg tablet Take 1 tablet (12.5 mg total) by mouth 3 (three) times a day if needed for dizziness. 270 tablet 06/30/19 25 Active fluticasone propionate (FLONASE) 50 mcg/actuation nasal spray .INSTILL 2 SPRAYS IN EACH NOSTRIL ONCE PER DAY FOR 2 WEEKS. 16 g 06/30/19 25 Active venlafaxine XR (EFFEXOR-XR) 150 mg 24 hr capsuleIndication s:Generalized anxiety disorder Take 1 capsule (150 mg total) by mouth 1 (one) time each day. Do not crush or chew. 90 capsule 1 07/16/19 25 Active aspirin 81 mg EC tabletIndications :Mixed hyperlipidemia Take 1 tablet (81 mg total) by mouth 1 (one) time each day. 90 tablet 1 07/16/19 25 Active carvediloL (COREG) 3.125 mg tabletIndications :Essential hypertension, benign Take 1 tablet (3.125 mg total) by mouth 2 (two) times a day. 180 tablet 1 07/16/19 25 Active lisinopril (PRINIVIL,ZESTRIL ) 40 mg tabletIndications :Essential hypertension, benign Take 1 tablet (40 mg total) by mouth 1 (one) time each day. 90 tablet 1 07/16/19 25 Active hydrALAZINE (APRESOLINE) 25 mg tabletIndications :Essential hypertension, benign Take 1 tablet (25 mg total) by mouth 3 (three) times a day. 270 each 1 07/16/19 25 Active metFORMIN XR (GLUCOPHAGE-XR) 500 mg 24 hr tabletIndications :Type II diabetes mellitus, well controlled ([facility] V24, [facility] V28) Take 1 tablet (500 mg total) by mouth 2 (two) times a day. Do not crush, chew, or split. 180 each 1 07/16/19 25 Active capsaicin (ZOSTRIX) 0.025 % cream Apply topically 2 (two) times a day. 60 g 08/11/19 25 2025 Active loratadine (CLARITIN) 10 mg tablet TAKE 1 TABLET BY MOUTH DAILY 90 tablet 1 10/09/19 25 Active loratadine (CLARITIN) 10 mg tablet Take 1 tablet (10 mg total) by mouth 1 (one) time each day. Active hydroCHLOROthiazi de (MICROZIDE) 12.5 mg capsule TAKE 1 CAPSULE BY MOUTH DAILY 90 capsule 1 10/28/19 25 Active cholecalciferol (VITAMIN D-3) 50 mcg (2,000 unit) tablet TAKE 1 TABLET BY MOUTH EVERY DAY 90 tablet 01/15/20 25 Active atorvastatin (LIPITOR) 80 mg tabletIndications :Mixed hyperlipidemia Take 1 tablet (80 mg total) by mouth 1 (one) time each day. 90 tablet 1 02/18/20 25 Active amLODIPine (NORVASC) 10 mg tabletIndications :Essential hypertension, benign TAKE 1 TABLET(10 MG) BY MOUTH 1 TIME EACH DAY 90 tablet 1 03/19/20 25 Active amLODIPine (NORVASC) 10 mg tabletIndications :Essential hypertension, benign Take 1 tablet (10 mg total) by mouth 1 (one) time each day. 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 Chronic kidney disease, stag e 3 unspecified ([facility] V24, [facility] V28) 01/22/2022 Memory deficit following cerebral infarction Vitamin D deficiency 01/22/2022 Peripheral vascular disease ([facility] V24) 2021 Generalized anxiety disorder 06/08/2021 Degeneration of intervertebral disc of lumbar re gion 07/18/2014 Benign paroxysmal positional vertigo 06/19/2014 Hearing loss 06/19/2014 Insomnia 06/19/2014 Obesity 06/19/2014 Osteoarthrosis 06/19/2014 Presence of sulcus intraocular lens implant 05/31 Spinal stenosis of lumbar region 12/01/2013 Overview (02/25/2024): Mild spinal stenosis at L4-[address] 08/21/13 Sleep apnea 07/21/2012 Type II diabetes mellitus, w ell controlled ([facility] V24, [facility] V28) 06/04/2011 Overview (02/25/2024): Last Assessment & Plan: Checking Your Blood Sugars Please check your blood sugars every day. Please check your sugars at the following times of day: before breakfast and after dinner Your Blood Sugar Goals Pre Meal: 90-130 2 hours after meals: 110-160 Bedtime: 110-150 Use the Results Bring your glucometer to every appointment Write your fingerstick blood sugars down on a log sheet or record book. Bring them to your appointment Look for patterns in the numbers. The results help you and your provider make decisions about your diabetes treatment plan. Your Results and your Goals Your Result / Date of Completion Your Goal / How Often to Assess Component Value Date HGBA1C 7.5 03/13/2011 Less than 7%--- 2-4 times per year BP Readings from Last 1 Encounters: 06/04/11 124/70 Less than 130/80--- once per year Component Value Date LDL 119 03/13/2011 LDL less than 100--- once per year Component Value Date MALBUR 3.4 04/11/2011 Less than 30--- once per year Wt Readings from Last 1 Encounters: 06/04/11 210 lb (95.255 kg) Your goal weight by next visit: 205 --- reassess 2-4 times a year Health Maintenance Due Topic Date Due ? Diabetes: Annual Care Plan 10/21/1963 ? Pelvic Exam Annually 08/16/2010 ? Bone Density Exam 2010 Your Action Plan Check blood glucose as directed and write down all results. Check feet for sores every day Continue to work on weight loss with a goal of losing 2-4 pounds per month Contact me if you experience any barriers to care such as inability to purchase your medication, difficulty getting to your appointments or difficulty understanding your care plan When to Call your Healthcare Provider If your blood sugar falls below 70 and you do not know why or you become unconscious If you are sick and unable to take liquids because or nausea or vomiting If you have a fever over 101 If your blood sugar is 300 or higher on greater than 3 separate occasions during the same week If you are just unsure what to do Educational Resources [employer] (www.diabetes.org) Centers for Disease Control and Prevention (www.cdc.gov/diabetes) This care plan was created in collaboration with Anisha Roberto on 06/04/2011 Essential hypertension, benign 06/03/2005 Overview (02/25/2024): Last Assessment & Plan: Patient is hypertensive today because she did not take her meds Depression 06/03/2005 Mixed hyperlipidemia 06/03/2005 Overview (02/25/2024): Last Assessment & Plan: Patient with hyperlipidemia due to medical noncompliance. I told her to try to take the pills every single day gave her a lab slip to get her lipids checked in a month and let see if she can be compliant and let see if that compliance with adequate medical management takes care of her cholesterol. Because right now she has not been taking her lipid management. Which explains why her lipids are not any better Subarachnoid hemorrhage ([facility] V24, [facility] V2 8) 06/03/2005 Overview (02/25/2024): Had surgery. Encounters Date Type Department Care Team Description 03/19/2025 Billing Patient Not Present [facility] - [facility] [address] [place] [phone] Jannie Yang MD Memory deficit following cerebral infarction (Primary Dx); Hypertensive chronic kidney disease with stage 1 through stage 4 chronic kidney disease, or unspecified chronic kidney disease; Stage 3 chronic kidney disease, unspecified whether stage 3a or 3b CKD ([facility] V24, [facility] V28); Anxiety disorder, unspecified type; Recurrent major depressive disorder, remission status unspecified ([facility] V24); Peripheral vascular disease, unspecified ([facility] V24); Type 2 diabetes mellitus without complications, unspecified whether usp insulin use ([facility] V24, [facility] V28) 03/16/2025 12:30 PM EST Treatment [facility] Occupational Therapy [address] [phone] Juanita Taylor COTA/Madisyn Bursitis of right shoulder (Primary Dx); Pain of right hand 03/15/2025 Results Follow-Up Internal Medicine - [address] [phone] Vanita Montes NP 03/12/2025 Telephone Internal Medicine - [address] [phone] Jannie Yang MD 03/09/2025 12:30 PM EST Treatment [facility] Occupational Therapy [address] [place] [phone] Jim Ziegler, OT Bursitis of right shoulder (Primary Dx) 03/02/2025 12:30 PM EST Treatment [facility] Occupational Therapy [address] [place] [phone] Jim Ziegler, OT Bursitis of right shoulder (Primary Dx); Pain of right hand 03/01/2025 Telephone Internal Medicine - [address] [phone] Jannie Yang MD 02/22/2025 12:00 PM EDT Evaluation [facility] Occupational Therapy [address] [place] [phone] Jim Ziegler, OT Bursitis of right shoulder (Primary Dx); Pain of right hand 02/22/2025 Plan of Care Documentation [facility] Occupational Therapy [address] [place] [phone] 02/18/2025 Results Follow-Up Internal Medicine - [address] [phone] Real Flores NP 02/17/2025 1:00 PM EDT [facility] [address] [place], [place] [address], [place] [phone] Real Flores NP Essential hypertension, benign (Primary Dx); Stage 3 chronic kidney disease, unspecified whether stage 3a or 3b CKD ([facility] V24, [facility] V28); Mixed hyperlipidemia; Depression, unspecified depression type; Type II diabetes mellitus, well controlled ([facility] V24, [facility] V28) 02/17/2025 Telephone [facility] [address] [place] [address] Jannie Yang MD 02/11/2025 1:45 PM EDT Office Visit Orthopedic Surgery [facility] [address] [facility] [address] [place] [phone] Elena Rai PA Bursitis of right shoulder (Primary Dx); Pain of right hand 02/11/2025 Results [facility] [address] [place] [address] Real Flores NP 02/09/2025 1:35 PM EDT - 02/09/2025 11:59 PM EDT Hospital [facility] [address] [place] [address] Chronic right shoulder pain Discharge Disposition: Home or Self Care 02/09/2025 1:00 PM EDT Office [facility] [address] [place], [place] [address], [place] [phone] Real Flores NP Hand pain, right (Primary Dx); Chronic right shoulder pain; Essential hypertension, benign 01/13/2025 Telephone [facility] [address] [place] [address] Jannie Yang MD 01/13/2025 Telephone [facility] [address] [place] [address] Jannie Yang MD 01/12/2025 [address]phone [address] Medicine [address] [place] [phone] Jannie Yang MD 01/11/2025 2:00 PM EDT Office Visit Walk-[facility] Clinic [address] [place] [phone] Shravan Beltran PA Chronic pain of right upper extremity (Primary Dx) 01/11/2025 Telephone Internal Medicine - [address] [place] [phone] Jannie Yang MD 01/05/2025 Telephone Internal Medicine - [address] [phone] Jannie Yang MD from Last 3 Months Immunizations Immunization Administration Dates Next Due Influenza trivalent, 0.5mL ( Fluad) 65yo and older 02/10/2021 Influenza trivalent, 0.5mL, preservative free (Fluarix; FluLaval; Fluzone) ages 6mo and older (Afluria) 3 years and older 01/23/2010,01/26/2009,01/15/2008,01/22,04/06/2006 Influenza trivalent, with pr eservative (Fluzone; Afluria) 6mo and older 02/11/2012,02/08/2011 Influenza, Unspecified 03/05/2023 CloudSplit SARS-CoV-2 COVID-19, mRNA, LNP-S, preservative free 02/14/2021 Pneumococcal conjugate 20 va lent (Prevnar 20, PCV 20) 2mo and older 03/19/2023 Pneumococcal polysaccharide 23 valent (Pneumovax 23) 2yo and older 05/26/2009 Tdap Tetanus diptheria acell ular pertussis (Boostrix; Adacel) 7yo and older 03/19/2023 Surgical History Surgery Date Site/Laterality Comments TUBAL LIGATION PROCEDURE: HISTORICAL TUBAL LIGATION COLONOSCOPY 07/02/2005 PROCEDURE: SD COLONOSCOPY STOMA DX INCLUDING COLLJ SPEC SPX; COMMENT: normal;repeat in 2010 COLONOSCOPY W/ POLYPECTOMY 01/05/2014 PROCEDURE: SD COLSC FLX W/RMVL OF TUMOR POLYP LESION SNARE TQ; COMMENT: adenoma; repeat in 5 yrs BREAST BIOPSY PROCEDURE: BX BREAST; PERC NEEDLE CORE W/IMAG GUID; COMMENT: left negative OTHER SURGICAL HISTORY PROCEDURE: SD PUNCTURE SHUNT TUBE/RESERVOIR ASPIRATION/INJ PX EYE SURGERY CATARACT EXTRACTION, BILATERAL Bilateral Medical History Medical History Date Comments Subarachnoid hemorrhage ([facility] V24, [facility] V28) 06/03/2005 DX:Subarachnoid hemorrhage ( HCC) Essential hypertension, benign 06/03/2005 D X:Essential hypertension, benign Depressive disorder, not els ewhere classified 06/03/2005 DX:Depressive disorder, not elsewhere classified Osteoarthritis DX:Osteoarthriti s Mixed hyperlipidemia DX:Mixed hy perlipidemia Eczema DX:Eczema Falls frequently DX:Falls freque ntly Diabetes mellitus ([facility] V 24, [facility] V28) Stroke ([facility] V24, [facility] V28) Family History Medical History Relation Name Comments Diabetes Brother 1 x5 3 2 wendi 2 bro thers have diabetes Hypertension Brother 1 x5 3 2 wendi Other: Other Brother 1 x5 3 2 wendi amput atuions; got Covid and passed, depression Diabetes Brother 2 Stroke Father Colon cancer Maternal Grandfather Colon cancer Mother age 90 Diabetes Sister x5 2 passed Hypertension Sister x5 2 passed Other: Other Sister x5 2 passed depression, mul tiple myeloma Diabetes Son 1 Asthma Son 2 Hypertension Son 2 Obesity Son 2 Relation Name Status Comments Brother 1 x5 3 2 wendi Brother 2 Father Maternal Grandfather Mother Sister x5 2 passed Alive Son 1 Alive Son 2 Alive Social History Tobacco Use Types Packs/Day Years Used Date Smoking Tobacco: Never Smokeless Tobacco: Never Tobacco Cessation:Counseling Given: Not Answered Alcohol Use Standard Drinks/Week Comments No 0 [...] do you feel lonely or isolated from ose around you? Never 10/01/2024 Food Risk [...] for your loved ones. 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 [...] on file Sexual Orientation Not on file Obstetrics History Last Filed Vital Signs Vital Sign Reading Time Taken Comments Blood Pressure 131/71 02/17/2025 12:55 PM EDT au to Pulse 60 02/17/2025 12:55 PM EDT Temperature 36.1 C (97 F) 01/11/2025 2:23 PM EDT Respiratory Rate - - Oxygen Saturation 99% 01/11/2025 2:23 PM EDT Inhaled Oxygen Concentration - - Weight 74.9 kg (165 lb 1.6 oz) 02/17/2025 12:55 PM EDT Height 170.2 cm (5' 7 ) 02/17/2025 12:55 PM EDT Body Mass Index 25.86 02/17/2025 12:55 PM EDT Plan of Treatment Upcoming Encounters Date Type Department Care Team (Late st Contact Info) Description 03/24/2025 1:30 PM EST Office Visit Orthopedic Surgery - [facility] [address] [facility] [address] [place] [phone] Elena Rai PA [address] [facility] [address] [place] [phone] 06/08/2025 1:30 PM EST Consult Nephrology - [address] [phone] Puma Domingo MD [address] [facility] [address] [place] [phone] 06/22/2025 1:15 PM EST Office Visit Internal Medicine - [address] [phone] Real Flores, [facility] [place] [address] Health Maintenance Due Date Last Done Comments Diabetes: Annual Foot Exam 10/21/1955 Zoster Vaccines (1 of 2) 1964 RSV Immunization Adult Patients (1 - 1-dose 75+ series) 2020 Hepatitis C Screening 04/01/2022 Osteoporosis Screening (Bone Density Screening) 04/01/2022 COVID-19 Vaccine ( season) 2024 08/23/2021, 02/14/2021, 06/05/2020, Additional history exists Influenza Vaccine (#1) 2024 3, 01/30/2023, 01/17/2022, Additional history exists Diabetes: Annual Urine Albumin-Creatinine Ratio (uACR) 02/19/2025 02/20/2024 Diabetes: Blood Sugar Control Test (HGBA1C) 08/18/2025 02/17/2025, 07/15/2024, 02/20/2024, Additional history exists Falls Risk Assessment 10/01/2025 10/01/2024 Medicare Annual Wellness Visit 10/01/2025 10/01/2024 Social Influencers of Health Screening 10/01/2025 10/01/2024 Diabetes: Annual GFR (Glomerular Filtration Rate) 02/17/2026 02/17/2025, 02/20/2024, 02/20/2024, Additional history exists Hypertension/CHF/CAD Annual BMP Blood Test 02/17/2026 02/17/2025, 02/20/2024, 02/20/2024, Additional history exists Diabetes: Annual Retina Eye Exam 03/15/2026 03/15/2025, 09/17/2023 Cholesterol Screening (Lipid Panel) 02/17/2030 02/17/2025, 02/20/2024, 02/20/2024 DTaP,Tdap,and Td Vaccines (2 - Td or Tdap) 03/19/2033 03/19/2023 Pneumococcal Vaccine: 50+ Years Completed 03/19/2023, 05/26/2009 Depression Screening Completed 10/01/2024, 07/15/19 HIB Vaccines Aged Out No longer eligi ble based on patient's age to complete this topic HPV Vaccines Aged Out No longer eligi ble based on patient's age to complete this topic Hepatitis A Vaccines Aged Out No long er eligible based on patient's age to complete this topic Hepatitis B Vaccines Aged Out No long er eligible based on patient's age to complete this topic IPV Vaccines Aged Out No longer eligi ble based on patient's age to complete this topic MMR Vaccines Aged Out No longer eligi ble based on patient's age to complete this topic Meningococcal ACWY Vaccine Aged Out N o longer eligible based on patient's age to complete this topic Meningococcal B Vaccine Aged Out No l onger eligible based on patient's age to complete this topic RSV Immunization Patients Under 20 months Aged Out No longer eligible based on patient's age to complete this topic Varicella Vaccines Aged Out No longer eligible based on patient's age to complete this topic Goals Goal Patient Goal Type Associated Problems [...] a pull-over sweater. Pt will demo R medical scientific liaison strength improved by >=5lbs in order to [...] reach overhead cabinets. Pt will demo R medical scientific liaison strength improved by >=10lbs in order to improve their ability to hold a coffee mug. Pt will demo R pinch strength improved by >=4lbs in order to improve their ability to zip their jacket. Pt will demo increased functional use of RUE evidenced by Qdash score <=50 in order to improve their ability to participate in [employer] community socials. Pt will perform updated HEP Mod I. Procedures Procedure Name Priority Date/Time Associated Diagnosis Comments EXTERNAL DIABETIC RETINA EYE EXAM 03/15/2025 CBC WITH AUTO DIFFERENTIAL Routine 02/17/2025 1:28 PM EDT Stage 3 chronic kidney disease, unspecified whether stage 3a or 3b CKD ([facility] V24, [facility] V28) COMPREHENSIVE METABOLIC PANEL Routine 02/17/2025 1:28 PM EDT Essential hypertension, benign LIPID PANEL WITH REFLEX TO DIRECT LDL Routine 02/17/2025 1:28 PM EDT Mixed hyperlipidemia HEMOGLOBIN A1C Routine 02/17/2025 1:28 PM EDT Type II diabetes mellitus, well controlled ([facility] V24, [facility] V28) CBC AND DIFFERENTIAL Routine 02/17/2025 1:28 PM EDT Stage 3 chronic kidney disease, unspecified whether stage 3a or 3b CKD ([facility] V24, [facility] V28) SD ARTHROCENTESIS/ASPIRA TION/INJECTION MAJOR JOINT/BURSA W/O U/S GUIDANCE Routine 02/11/2025 1:45 PM EDT Bursitis of right shoulder XR SHOULDER 2+ VIEWS RIGHT Routine 02/09/2025 1:45 PM EDT Chronic right shoulder pain URINE ALBUMIN CREATININE RATIO Routine 02/20/2024 DEPRESSION SCREENING Routine 07/15/2023 from Last 3 Months or Most Recently Relevant to Health Maintenance Results * External Diabetic Retina Eye Exam Report (03/15/2025) Anatomical Region Laterality Modality Ultrasound us Provider [facility] US PROCEDURES Final Result * (ABNORMAL) Lipid panel with reflex to direct LDL (02/17/2025 1:28 PM EDT) Cholesterol 262(H) 0 - 200 mg/dL LAB CHEMISTRY METHOD 02/17/2025 6:46 PM EDT [facility] Triglycerides 72 0 - 150 mg/dL LAB CHEMISTRY METHOD 02/17/2025 6:46 PM EDT [facility] HDL 103 >=40 mg/dL LAB CHEMISTRY METHOD 02/17/2025 6:46 PM EDT [facility] LDL Calculated 145(H) 0 - 100 mg/dL LAB CHEMISTRY METHOD 02/17/2025 6:46 PM EDT [facility] Comment:Estimated LDL Calcul ated using equation: Total cholesterol - HDL cholesterol - (Triglycerides/5) VLDL Cholesterol Farshad 14.4 mg/dL LAB CHEMISTRY METHOD 02/17/2025 6:46 PM EDT [facility] Non HDL Chol. (LDL+VLDL) 159(H) <145 mg/dL LAB CHEMISTRY METHOD 02/17/2025 6:46 PM EDT [facility] Chol/HDL Ratio 2.5 0.0 - 4.4 LAB CHEMISTRY METHOD 02/17/2025 6:46 PM EDT [facility] Blood Venous blood specimen / Unknown Venipuncture / Unknown 02/17/2025 1:28 PM EDT 02/17/2025 1:28 PM EDT us Real Flores CAGE SHIFT MANAGER LAB BLOOD ORDERABLES Final Res ult [facility] [address] [place] [address], * (ABNORMAL) CBC auto differential (02/17/2025 1:28 PM EDT) WBC 10.2 4.8 - 10.8 K/mcL LAB HEMETOLOGY METHOD 02/17/2025 3:27 PM EDT [facility] RBC 4.30 3.80 - 4.80 M/mcL LAB HEMETOLOGY METHOD 02/17/2025 3:27 PM EDT [facility] Hemoglobin 12.4 11.5 - 16.0 g/dL LAB HEMETOLOGY METHOD 02/17/2025 3:27 PM EDT [facility] Hematocrit 40.2 35.0 - 47.0 % LAB HEMETOLOGY METHOD 02/17/2025 3:27 PM EDT [facility] MCV 94.4 79.0 - 98.0 FL LAB HEMETOLOGY METHOD 02/17/2025 3:27 PM EDT [facility] MCH 29.1 27.0 - 32.0 pcg LAB HEMETOLOGY METHOD 02/17/2025 3:27 PM EDT [facility] MCHC 30.8(L) 32.0 - 37.0 g/dL LAB HEMETOLOGY METHOD 02/17/2025 3:[facility] [facility] RDW 12.7 11.0 - 15.0 % LAB HEMETOLOGY METHOD 02/17/2025 3:27 PM EDT [facility] Platelets 320 130 - 400 K/mcL LAB [facility] MPV 9.4 7.0 - 11.0 [place] [facility]OLOGY [facility] NRBC 0.0 <1.0 % LAB HEMETOLOGY METHOD 02/17/2025 3:27 PM EDT [facility] NRBC Absolute 0.00 <0.10 K/mcL LAB HEMETOLOGY METHOD 02/17/2025 3:27 PM EDT [facility] Neutrophils Relative 72.1 % LAB [facility]OLOGY [facility] Lymphocytes Relative 19.4 % LAB HEMETOLOGY METHOD 02/17/2025 3:27 PM EDT [facility] Monocytes Relative 7.3 % LAB HEMETOLOGY METHOD 02/17/2025 3:27 PM EDT [facility] Eosinophils Relative 0.3 % LAB HEMETOLOGY METHOD 02/17/2025 3:27 PM EDT [facility] Basophils Relative 0.3 % LAB HEMETOLOGY METHOD 02/17/2025 3:27 PM EDT [facility] Immature Granulocytes Relative 0.6 % LAB HEMETOLOGY METHOD 02/17/2025 3:27 PM EDT [facility] Neutrophils Absolute 7.34(H) 1.50 - 7.00 K/mcL LAB HEMETOLOGY METHOD 02/17/2025 3:27 PM EDT [facility] Lymphocytes Absolute 1.98 1.00 - 5.00 K/mcL LAB HEMETOLOGY METHOD 02/17/2025 3:27 PM EDT [facility] Monocytes Absolute 0.74 0.20 - 1.00 K/mcL LAB HEMETOLOGY METHOD 02/17/2025 3:27 PM EDT [facility] Eosinophils Absolute 0.03 0.00 - 0.50 K/mcL LAB HEMETOLOGY METHOD 02/17/2025 3:27 PM EDT [facility] Basophils Absolute 0.03 0.00 - 0.20 K/mcL LAB HEMETOLOGY METHOD 02/17/2025 3:27 PM EDT [facility] Immature Granulocytes Absolute 0.06(H) 0.00 - 0.03 K/mcL LAB HEMETOLOGY METHOD 02/17/2025 3:27 PM EDT [facility] Blood Venous blood specimen / Unknown Venipuncture / Unknown 02/17/2025 1:28 PM EDT 02/17/2025 1:28 PM EDT us Real Flores NP LAB BLOOD ORDERABLES Final Res ult [facility] [address] [place] [address], * (ABNORMAL) Hemoglobin A1c (02/17/2025 1:28 PM EDT) [facility] Hemoglobin A1C 6.5(H) <6.5 % LAB CHEMISTRY METHOD 02/17/2025 9:16 PM EDT [facility] Mean Bld Glu Estim. 140 mg/dL LAB CHEMISTRY METHOD 02/17/2025 9:16 PM EDT [facility] Blood Venous blood specimen / Unknown Venipuncture / Unknown 02/17/2025 1:28 PM EDT 02/17/2025 1:28 PM EDT Real Flores CAGE SHIFT MANAGER LAB BLOOD ORDERABLES Final Res ult [facility] [address] [place] [address], * (ABNORMAL) Comprehensive metabolic panel (02/17/2025 1:28 PM EDT) [facility] Sodium 139 133 - 145 mmol/L LAB CHEMISTRY METHOD 02/17/2025 6:37 PM EDT [facility] Potassium 4.6 3.5 - 5.5 mmol/L LAB CHEMISTRY METHOD 02/17/2025 6:37 PM EDT [facility] Chloride 105 96 - 110 mmol/L LAB CHEMISTRY METHOD 02/17/2025 6:37 PM EDT [facility] CO2 29 21 - 32 mmol/L LAB CHEMISTRY METHOD 02/17/2025 6:37 PM EDT [facility] Anion Gap 5 3 - 11 LAB CHEMISTRY METHOD 02/17/2025 6:37 PM EDT [facility] Glucose 102(H) 70 - 100 mg/dL LAB CHEMISTRY METHOD 02/17/2025 6:37 PM EDT [facility] BUN 26(H) 5 - 25 mg/dL LAB CHEMISTRY METHOD 02/17/2025 6:37 PM [facility] Creatinine 1.39(H) 0.50 - 1.10 mg/dL LAB CHEMISTRY METHOD 02/17/2025 6:37 PM [facility] eGFR 39(L) >=60 mL/min/1. 73m2 LAB CHEMISTRY METHOD 02/17/2025 6:37 PM [facility] Comment:Calculation based on the Chronic Kidney Disease Epidemiology Collaboration (CKD-EPI) equation refit without adjustment for race. BUN/Creatinine Ratio 18.7 LAB CHEMISTRY METHOD 02/17/2025 6:37 PM [facility] Calcium 10.3 8.5 - 10.5 mg/dL LAB CHEMISTRY METHOD 02/17/2025 6:37 PM [facility] AST (SGOT) 13 10 - 42 unit/L LAB CHEMISTRY METHOD 02/17/2025 6:37 PM [facility] ALT (SGPT) 23 10 - 60 unit/L LAB CHEMISTRY METHOD 02/17/2025 6:37 PM [facility] Alkaline Phosphatase 78 42 - 121 unit/L LAB CHEMISTRY METHOD 02/17/2025 6:37 PM [facility] Total Protein 7.6 6.0 - 8.0 g/dL LAB CHEMISTRY METHOD 02/17/2025 6:37 PM [facility] Albumin 4.1 3.2 - 5.0 g/dL LAB CHEMISTRY METHOD 02/17/2025 6:37 PM [facility] Total Bilirubin 0.4 0.0 - 1.4 mg/dL LAB CHEMISTRY METHOD 02/17/2025 6:37 PM [facility] Blood Venous blood specimen / Unknown Venipuncture / Unknown 02/17/2025 1:28 PM EDT 02/17/2025 1:28 PM EDT Real Flores CAGE SHIFT MANAGER LAB BLOOD ORDERABLES Final Res ult [facility] [address] [place] [address], * [place] ARTHROCENTESIS/ASPIRATION/INJECTION MAJOR JOINT/BURSA W/O U/S GUIDANCE (02/11/2025 1:45 PM EDT) Narrative Elena Rai PA - 02/11/2025 1:45 PM EDT [facility]ers 02/11/2025 7:17 PM L Inj/Asp: R subacromial bursa Indications: pain Details: 22 G needle, anterolateral approach Medications: 3 mL lidocaine 1 %; 40 mg triamcinolone acetonide 40 mg/mL Informed Consent: Laterality: Right Relevant images/test results available and reviewed: yes Health status cleared: Yes Procedure/treatment, purpose, treatment alternatives, risks/potential complications and benefits explained: yes Risk/complications/benefits details: Risks of infection, thinning of the skin and temporary skin discoloration discussed. Discussed risks of temporary increased pain after injection and swelling and mild redness at injection site for couple days. Explained occasionally cortisone injection can cause facial flushing temporarily. Benefits pain management. For postop injection pain ice, Tylenol and/or NSAIDs if patient can take Patient questions answered: yes Patient agrees, verbalizes understanding, and wants to proceed: yes Consent given by: Patient Informed consent discussion completed by Physician/MUSTAPHA with patient: Verbal Pre-procedure timeout performed: yes Elena SAHA IN CLINIC/BEDSIDE ORDERABLES Final Result * XR Shoulder 2+ Views Right (02/09/2025 1:45 PM EDT) Anatomical Region Laterality Modality Upper Extremities, Shoulder Right Radi ographic Imaging 02/09/2025 4:04 PM EDT Impressions 02/09/2025 4:06 PM EDT Degenerative changes as described. -------- FINAL REPORT -------- Dictated By: Sindy Grace Dictated Date: 02/09/2025 16:04 ET Assigned Physician: Sindy Grace Reviewed and Electronically Signed By: Sindy Grace Signed Date: 02/09/2025 16:06 ET Workstation ID: [id number] Transcribed By: Self Edit Transcribed Date: 02/09/2025 16:04 ET Narrative 02/09/2025 4:06 PM EDT RIGHT SHOULDER, 4 VIEWS HISTORY: Chronic right shoulder pain. PRIORS: None. FINDINGS: There is a small subacromial spur. There is mild degenerative spurring of the glenohumeral joint. There are subchondral cysts of the greater tuberosity. No fracture, malalignment, or foreign body is seen. No soft tissue abnormality is seen. Procedure Note Sindy Grace MD - 02/09/2025 RIGHT SHOULDER, 4 VIEWS HISTORY: Chronic right shoulder pain. PRIORS: None. FINDINGS: There is a small subacromial spur. There is mild degenerative spurring ofthe glenohumeral joint. There are subchondral cysts of the greater tuberosity. No fracture, malalignment, or foreign body is seen. No soft tissueabnormality is seen. IMPRESSION: Degenerative changes as described. -------- FINAL REPORT -------- Dictated By: Sindy Grace Dictated Date: 02/09/2025 16:04 ET Assigned Physician: Sindy Grace Reviewed and Electronically Signed By: Sindy Grace Signed Date: 02/09/2025 16:06 ET Workstation ID: [id number] Transcribed By: Self Edit Transcribed Date: 02/09/2025 16:04 ET Real Flores CAGE SHIFT MANAGER IMG XR PROCEDURES Final Result * Urine Albumin Creatinine Ratio (02/20/2024) Urine Albumin Creatinine Ratio Abstracted Historical Provider HEALTH MAINTENANCE Final Result * Depression Screening (07/15/2023) Depression Screening Abstracted Historical Provider HEALTH MAINTENANCE Final Result from Last 3 Months or Most Recently Relevant to Health Maintenance Insurance [employer] MEDICARE Member Subscriber Plan / Payer (Ef fective 2024-Present) Name:Pardeep Anisha Relation to Subscriber:Self Name:Anisha Roberto Payer ID:[id number] Group ID:[id number] Type:Not on file Address: [address] [facility] [place] [id number] Care Teams Enrichment Assistant Relationship Specialty Start Date End Date Jannie Yang MD [address] [facility] [place] PCP - General Internal Medicine 01/05/25
--- OUTSIDE RECORDS SUMMARY | 2025-03-23 17:53 | XMS_ITS | Encounter Summary ---
Author Organization [facility] Address [address] [place] [address] Encounters * CPT with Medical [facility] at [facility] on 2025-01-18 Mbr called in to the CRU, c/o [...] able to move extremity but pain increases withmovement. Mbr reports hx of arthritis. Mbr taking tylenol w/o effect. This consumer loan underwriter triaged mbr to contact PCP, mbr states she did and soonest appt available was scheduled for 02/09. Mbr was advised [facility]ED would be submitted and to keep PCP appt as scheduled. Mbr was advised if new/worsening sx, to call back. 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 Arrival on scene, patient was found inside apartment seated in chair, alert and oriented x4, patent airway, breathing non labored speaking in complete sentences, skin WPD in no immediate distress. +/= Chest rise. -SOB, -CP, -NVD, -Trauma, -Fever. GCS 15. Patient reports on going right upper extremitypain x3 weeks limited to her joints including [...] NVD. Patient reports she was seen by [facility] last week, received Toradol shot which helped and is looking to receive another dose of Toradol. Patient denies any kidney disease, denies allergies to NSAID, denies recent trauma, denies taking any blood thinners, deniestaking Ibuprofen today. Patient reports that she took Tylenol earlier with minimal relief. Patient vital signs obtained as noted. [facility] consulted, provided orders for 15mg Toradol IM. 15mg Toradol IM administered in left deltoid without incident, six patient rights verified prior. Patient advised shecan continue with ice/heat along with Tylenol for pain management. Patient advised that she contacted PCP and has appointment in January. Red flags discussed with patient and advised to call 911 if her condition worsens. SC08 Clear. IV_(FLUIDS_AND/OR_MEDICATION), MEDICATION_IM, ORAL_MEDICATION, WOUND_CARE, ORTHOSTATIC_VITAL_SIGNS Written by Medical [facility] on 2025-01-18
--- OUTSIDE RECORDS SUMMARY | 2025-03-23 17:53 | XMS_ITS | Data Portability ---
Author Organization [employer] [facility], [facility] Address [address] [place] [address] Care Team Providers Care Axle Bearing Polisher Name Role Phone HIM CCA OTHER Assessment Encounter Date Assessment Date Assessment LastModified by Organization Details LastModified Time 04/17/2024 04/17/2024 I provided real -time medical direction via phone for this encounter and was available for additional phone-based assistance as needed. I have reviewed and agree with the Assessment and Plan as documented by the Order Picker. Patient given the opportunity to ask questions. Our service contacted for an assessment of: Osteoarthritis As per above, patient with pain primarily in the upper extremities and her hands and larger joints in the lower extremity. Has a known history of osteoarthritis with poor control of pain particularly in times when the weather changes and when she has a upper respiratory tract infection. Currently today with decreased temperature is her osteoarthritis has flared. She has complaints of pain in his not taking Tylenol regularly. She denies any chest pain or shortness of breath. She is not on anticoagulant. She has normal renal function. She is hydrating well and has no problems with p.o. intake of solids and liquids. Per housecleaner on the scene, vital signs are stable [...] or worsening serious symptoms, particularly fever chills Not available 04/17/2024 19:03:35 01/06/2025 01/06/2025 I have reviewed and agree with the Assessment and Plan as documented by the Order Picker. I provided real-time medical direction via phone for this encounter, and was available for additional phone based assistance as needed. I would add/emphasize: Patient with history of arthritis is seen for acute on chronic right hand/shoulder pain. AVSS afebrile well-appearing no trauma per report. Mild tenderness to palpation, thus no suspicion for cardiac etiology. No redness swelling or warmth to suggest infection. Plan to treat with ketorolac and have patient follow-up with patient's PCP. [email or web address] Not available 01/07/2025 10:28:04 01/11/2025 01/11/2025 I have reviewed and agree with the Assessment and Plan as documented by the Order Picker. I provided real-time medical direction via phone for this encounter, and was available for additional phone based assistance as needed. I would add/emphasize: Patient with history of arthritis is seen for acute on chronic right hand/shoulder pain. AVSS afebrile well-appearing no trauma per report. Mild tenderness to palpation, thus no suspicion for cardiac etiology. No redness swelling or warmth to suggest infection. Treated 01/06 with ketorolac without any effect so will not retry this. Will have patient follow-up with patient's PCP. Not available 01/11/2025 17:54:07 01/18/2025 01/18/2025 I provided real -time medical direction via phone for this encounter and was available for additional phone-based assistance as needed. I have reviewed and agree with the Assessment and Plan as documented by the Order Picker. Patient given the opportunity to ask questions. [...] p.o. intake of solids and liquids. Per housecleaner on the scene, vital signs are stable [...] or worsening serious symptoms, particularly fever chills Not available 01/18/2025 17:05:58 01/29/2025 01/29/2025 Evaluation in [facility] field was performed by my housecleaner colleague, as noted above, I provided real-time [...] Procedures None recorded. Surgeries None recorded. Imaging [facility]ca [facility]diogram [facility]24 [facility] [address] [place] [address], [id number] 5 20:55:10 Medication Orders ketorolac 60 mg/2 mL intramusc ular solution 2024 025 [email or web address] [id number], [address] [place], [place], [id number], 5 20:28:02 ketorolac 15 mg/mL injection solution [address] [id number], [address] [place], [place], [id number], 5 17:05:59 ketorolac 15 mg/mL injection solution 2024 025 [email or web address] [facility] #[id number], [address] [place], [place], [id number], 5 15:03:18 ketorolac 15 mg/mL injection solution [address] [facility]63, [address] [place], [place], [id number], 4 19:01:23 Patient TargetsNo targets recorded. Patient InstructionsNo instructions recorded. Reason for Referral None Reported. Results Created Date Observation Date Name Description Value Unit Range Abnormal Flag Note LastModifiedBy Organization Detail LastModifiedTime 01/30/20 25 01/29/2025 elect maldonado peguerogr am No observ ation record ed. acalthorpe [address], [phone] 01/29/2025 22:04:36 Result Notes None recorded. Medical Equipment None Reported. Allergies Allergen ID Allergen Name Allergen Category Reaction Reaction Severity Criticality Documentation Date Start Date Code Code System Note Provider Name and Address Organization Details Recorded Time 70582 rivastigm ine medicatio n Not available Not available Not available 01/18/2025 16952 9 RxNorm Not Available [facility] 5 13:28:34 2547 codeine medicatio n Not available Not available Not available 10/15/2022 2670 Rx[facility] Not Available [facility] 4 15:32:19 6284 amoxicill in medicatio n Not available Not available Not available 01/17/2024 723 RxNorm Not Available [facility] - production 4 15:32:19 6285 shellfish derived food,medi cation Not available Not available Not available 01/17/2024 Not Available [facility] - 5 13:37:31 Medications Name Sig Start Date Stop Date Status Note LastModified by Organization Details LastModified Time arth pain rel(acetamino phen)650mg t TAKE 1 TABLET BY MOUTH EVERY 8 HOURS NEEDED active Not Available Not Available No t Available arthrts pain tab 650mg er active Not Available Not Available Not Available med [facility] active Not Available Not Available Not [...] Not Available Not Available No t Available [employer] Ultra Test strips DIRECTED TO TEST BLOOD [...] % 18 /min 170.18 cm 98.3 [degF] 87162.5 2 g 144/80 mm[Hg] Not Available [employer] 5 15:01:07 Date Recorded Body temperature Body height Oxygen saturation Respiratory rate Heart rate Body weight Systolic And Diastolic Provider Name and Address Organization Details Last Updated DateTime 5 98.5 [degF] 170.18 cm 98 % 17 /min 78 /min 56603.5 6 g 132/64 mm[Hg] Not Available [employer] 5 17:51:19 Date Recorded Oxygen saturation Body temperature Respiratory rate Heart rate Systolic And Diastolic Provider Name and Address Organization Details Last Updated DateTime 5 98 % 98.8 [degF] 16 /min 77 /min 160/70 mm[Hg] Not Available [employer] 5 17:02:26 Date Recorded Body temperature Body weight Oxygen saturation Respiratory rate Body height Heart rate Systolic And Diastolic Provider Name and Address Organization Details Last Updated DateTime 5 97.7 [degF] 42511.5 6 g 99 % 20 /min 170.18 cm 67 /min 128/52 mm[Hg] Not Available [employer] 5 20:22:55 Date Recorded Body temperature Respiratory rate Oxygen saturation Heart rate Systolic And Diastolic Provider Name and Address Organization Details Last Updated DateTime 4 98.3 [degF] 16 /min 97 % 80 /min 114/68 mm[Hg] Not Available [employer] - production 4 18:35:41 Social History None recorded. Functional Status None recorded. Mental Status None recorded. Family History Nothing Reported. Medical History No medical history recorded. Gynecological HistoryNo gynecological history recorded. Obstetrics History GPAL:G 0 P 0 0 0 0 Past Encounters Encounter ID Performer Location Encounter Start Date Encounter Closed Date Diagnosis/Indication Diagnosis SNOMED-CT Code Diagnosis ICD10 Code Diagnosis IMO Codes Diagnosis Note [id number] Gricel Mariee MD Main - [address] [address] 09/12/2022 19:49:58 09/13/2022 10:10:55 Headache 08442343 R51.9 As noted, we were called to see this patient regarding concerns of headache. Evaluation in the field was performed by my housecleaner colleague, as noted above, I provided real-time direction and supervisio n for this visit. The evaluation revealed 76y F with LITTLE for 48h without h/o migraines. 6/10 pain, not worst headache ever, no focal neuro signs, non-progre ssive, just not easing up. No fever, neck pain, n/v but onset was during the night and she woke up with it. Will give LITTLE cocktail at home but if sxs worsen or are not relieved w meds, recommend ER eval for further evaluation . Impression :headache Plan:- ketorolac 30mg- reglan 10mg- fu in ER if no improvemen t Primary care, considerf/ u in next 2 wks to confirm resolution and discuss management options iso recurrence Dispositio n: We discussed the diagnostic uncertaint y of home visits and the risk associated with this. In this case, the patient and I felt this to be an acceptable and reasonable amount of risk given the benefit of avoiding an ED visit. We discussed the need to seek care urgently/e mergently in the setting of any new or worsening serious symptoms, particular ly worsening headache, vision changes, confusion, LOC, weakness, fever. Pain [id number] R52 [id number] Mi Mcghee MD Main - [address] [address] 10/15/2022 16:23:03 10/18/2022 15:17:30 Seasonal allergy 712148039 J30.2 no clinical evidence of acute infection- advised to call for another visit if s/s worsen-adv ised stay hydrated- gargle with warms salt water to ease any pharyngeal irritation Low back pain [id number] M54.50 pat reports has no hx ckd- in ecw labs 06/21/22: BUN 15/ cr 1.1-is not on anticoagul ants- advised hold advil til tomorrow- Will send RX for APAP- had good relief from ketorolac in the past- advised need to f/u with pcp this week. 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 No red flag symptoms. Rx Lidocaine to pharmacy. Has close f/u with PCP re: further imaging or pain management . Discussed red flag signs for which to seek higher level of care. [id number] Roshan Hernandez MD Main - [facility] [address] [place] [address] 01/08/2024 12:53:05 01/08/2024 14:24:35 Pain of right hand [id number] 72221 M79.641 [id number] Melodie Porter MD Main - [facility] [address] [place] [phone] 01/13/2024 15:56:02 01/14/2024 17:20:24 Osteoarthritis 256598099 M19.90 I provided real -time medical direction via phone for this encounter, and was available for additional phone based assistance as needed. I have reviewed and agree with the Assessment and Plan as documented by the Order Picker. Patient given the opportunit y to ask questions. acute on chronic arthralgia s in right hand fingers without history or evidence of trauma, wounds, skin changes. no fevers/chi lls, changes in perfusion. Suspect OA related pain. No history of kidney disease. Will provide 1x dose of toradol 15mg. [id number] RICHIE GEORGE MD Main - [facility] [address] [place] [phone] 01/17/2024 19:24:57 01/18/2024 02:00:05 Osteoarthritis of joint of hand 80421098 M19.049 Evaluation in the field was performed by my housecleaner colleague, as noted above, I provided real-time direction and supervisio n for this visit. The evaluation revealed 78-year-ol d female with a history of osteoarthr itis and prior CVA, evaluated for right hand pain in the 2nd, 3rd, and 4th fingers. The patient reports a history of osteoarthr itis in the shoulders and back, but no previous involvemen t of the hands or fingers. Over the past 2 weeks, she has experience d atraumatic pain in the middle three fingers of her right hand, with no history of trauma. She denies associated numbness, weakness, or paresthesi as in the extremity. There are no changes in color, swelling of the joints, or temperatur e. She reports no associated chest pain, back pain, dyspnea, or headache, and denies any other relevant symptoms. On examinatio n, the patient is awake, alert, and well-appea ring. Joint examinatio n is normal, with a symmetrica l appearance of both hands and fingers. Strength, sensation, and capillary refill are normal. There is no swelling, redness, or warmth. The remainder of the examinatio n is unremarkab le. The patient has been taking 1 gram of Tylenol every 8 hours with minimal relief. She was seen by us on 01/12 and received 15 mg of IM ketorolac, which provided significan t pain improvemen t until today. She denies any gastrointe stinal bleeding and is not on anticoagul ation. VS significan t for only mild hypertensi on, otherwise unremarkab leBMP shows : na 141, K 3.7, Cl 103, CO2 28, BUN 16, Creat 1.3 ( eGFT 40) Impression :Right hand osteoarthr itis Plan:-An ent with stage 3b CKD. I did not feel comfortabl e administer ing another dose of ketorolac due to concerns about worsening renal function, elevated blood pressure, and the high risk of bleeding given her age.-Advis ed to continue Tylenol 1 gram three times a day.-Presc ription for diclofenac gel sent to her pharmacy.- She would benefit from a hand x-ray and inflammato ry markers.-M ay benefit from low-dose steroids if topical treatment does not help. Patient was advised to contact her PCP next week for further evaluation .-Red flags were discussed with the patient. Primary care, consider__ _ Dispositio n: We discussed the diagnostic uncertaint y of home visits and the risk associated with this. In this case, the patient and I felt this to be an acceptable and reasonable amount of risk given the benefit of avoiding an ED visit. We discussed the need to seek care urgently/e mergently in the setting of any new or worsening serious symptoms, particular ly fever, chills, CP, SOB, worsening hand pain swelling redness , warmth on the hand, vomiting blood , dark stool or any other concerns. [id number] Clay Alejandro MD Main - [address] [address] 01/23/2024 11:59:39 01/23/2024 14:47:30 Pain of right hand [id number] 03373 M79.641 This 78-year-ol d female has had pain in her right wrist and hand for several days. She appears to have some type of arthritis. I recommende d treatment with Motrin and Tylenol. She will follow-up with her PCP. The patient agreed with this plan. [id number] Iliana Jules MD Main - [facility] [address] [place] [phone] 02/09/2024 11:13:37 02/11/2024 11:41:21 Osteoarthritis [id number] M19.90 [id number] [facility] [address] [place] [phone] 04/17/2024 18:35:39 04/17/2024 21:10:04 Osteoarthritis 011132194 M19.90 [id number] Javy Carmona MD Main-[facility] [address] [address] 01/06/2025 15:01:02 01/07/2025 11:16:39 Arthritis 5411555 M19.90 [id number] Iliana Jules MD [facility] ED Medical [address] [address] 01/11/2025 17:51:16 01/11/2025 22:45:15 Osteoarthritis of multiple joints 757143124 M15.9 [id number] Iliana Jules MD [facility] [address] [address] 01/18/2025 17:02:23 01/19/2025 00:22:45 Osteoarthritis 862718371 M19.90 [id number] Elena Bello MD [address] [address] 01/29/2025 20:22:47 01/30/2025 12:10:57 Pain of right shoulder region 5888920111 M25.511 15271147 Trigger fi nger of right hand [id number] 9631895 M65.30 [id number] Health Concerns Section Related Observation LastModified by Organization Detai ls LastModified Time None Recorded Concern Status LastModified by Organization Details LastModified Time None Recorded Advance Directives Directive None Recorded Payers Insurance Date Sequence Insurance Name Policy Number Policy Rojas Covered Member ID Rojas Member ID Guarantor Name 01/30/2025 1 [facility] - DOS ON OR AFTER 2022 - DUAL ELIGIBLE - [facility] OPTIONS AND ONE CARE (MEDICARE REPLACEMENT/ADV ANTAGE - HMO) Anisha Roberto [id number] Anisha Roberto 04/17/2024 1 [facility] - DOS PRIOR TO 2022 - DUAL ELIGIBLE (MEDICARE REPLACEMENT/ADV ANTAGE - HMO) Anisha Roberto [id number] Anisha Roberto Notes Date Note Type Note Provider Name and Address Organization Details Recorded Time 04/17/2024 text/html HPI: Vitamin D deficiency, arthritis, L hemiplegia s/p cerebral infarction, L foot drop, PVD, Dementia ..................... ..................... ..................... ..................... ..................... ..................... ............... [facility] Nurse Triage Notes (Karen Curran - RN): Chief Complaints: Joint pain/swelling PMH: Hypertension, Coronary Artery Disease, Osteoarthritis, Stroke Comments: Other allergies: Shellfish HPI reviewed- NE ..................... ..................... ..................... ..................... ..................... ..................... ............... Order Picker Note From Nasir Roland: Dispatched to the call address for the female with hand pain. Pt states she has arthritis and her hands and wrist have been hurting more than normal. She has been taking Tylenol but only once or twice a day. Pt denies any trauma or swelling to the area. Pt denies pain anywhere else, fevers, cold/flu like symptoms or any other complaints.Pt was found opening door, in no obvious distress, CAOx4, airway open and patent, breathing non labored, able to speak in full sentences, -JVD, -HEENT, skin color appropriate for race WD with good turgor, abd soft non tender/distended, pupils PERRL, mucous membranes pink and moist, +CMSx4, lungs CTA, afebrile. no swelling or edema noted in hands/wrist, Pt with full rom. [facility] consulted. Pt given 15mg IM Ketorolac (R deltoid). Red flags discussed. ALL times are approx. ..................... ..................... ..................... ..................... ..................... ..................... ............... [facility] Consulted: Iliana Jules ..................... ..................... ..................... ..................... ..................... ..................... ............... Disposition: Fulfilled Iliana Jules MD [address] [place] [address],[address] [facility], [place], [phone], [employer] 04/17/2024 19:03:58 01/06/2025 text/html CRC Nurse Triage Notes (Meme [...] Disease, Osteoarthritis, Stroke PMH Reviewed at 01/06/2025 13:37 Allergies Reviewed at 01/06/2025:37 Pain Assessment: Level 7 out of 10 [...] ..................... ..................... ..................... ..................... ..................... ..................... ............... Order Picker Note From Jamila Nolan: Sent to a [...] hand tenderness; Skin: pink, warm, dry; [facility] consulted and orders Toradol 15mg IM. 5 med rights verified; Toradol 15mg IM administered; Pt advised to follow up with PCP. Red flags discussed. Pt has no further questions. [facility] Medication Orders: ketorolac 15 mg/mL injection solution: Administered ..................... ..................... ..................... ..................... ..................... ..................... ............... [facility] Consulted: Javy Carmona ..................... ..................... ..................... ..................... ..................... ..................... ............... Disposition: Fulfilled Javy Carmona MD [address] [place] [address],[address], [place], [phone], [employer] 01/07/2025 10:28:13 01/11/2025 text/html [facility] Nurse Triage Notes (Yousif Blankenship): Reason For Request: finger and shoulder pain Denies: Vale Flash, circumferential vale Vale reported with black tissue to the area Open skin area after a fall with uncontrolled bleeding Abscess/infection with streaking noted, presence of fever or without Chief Complaints: Extremity Pain PMH: Hypertension, Coronary Artery Disease, Osteoarthritis, Stroke PMH Reviewed at 01/11/2025 - 13:12 Allergies Reviewed at 01/11/2025 - 13:12 Comments: 79 y.o female complains of Extremity [...] ..................... ..................... ..................... ..................... ..................... ..................... ............... Order Picker Note From Patrice Arcos: Dispatched to the above address for a 79 y/f with a cc of right shoulder pain. Proper ppe was worn throughout the call. Upon arrival: Pt AOx4 sitting in a fowlers position in the living room couch. Pt greeted [facility] and gave a verbal report. Pt stated [...] - nose test normal, no neglect noted. [facility]: gave red flags/pt education. Pt was notified that todays visit will be sent over to pt PCP, and her PCP will be aware that Tylenol is not helping. Education given o home remedies/warm compress. MIH clear. All times approximate. ..................... ..................... ..................... ..................... ..................... ..................... ............... [facility] Consulted: Iliana Jules ..................... ..................... ..................... ..................... ..................... ..................... ............... Disposition: Erickson Iliana Jules MD [address] [facility],[address], [place], [address], [employer]O 01/11/2025 19:11:29 01/18/2025 text/html HPI: Mbr called in to [...] arthritis. Mbr taking tylenol w/o effect. This selling underwriter triaged mbr to contact PCP, mbr states she did and soonest appt available was scheduled for 02/09. Mbr was advised [facility] would be submitted and to keep PCP appt as scheduled. Mbr was advised if new/worsening sx, to call back. ..................... ..................... ..................... ..................... ..................... ..................... ............... [facility] Nurse Triage Notes (Loly Gutierrez): Reason For Request: pain Chief Complaints: Extremity Pain PMH: Hypertension, Coronary Artery Disease, Osteoarthritis, Stroke PMH Reviewed at 01/18/2025 - 13:28 Allergies Reviewed at 01/18/2025 - 13:28 Comments: HPI reviewed ..................... ..................... ..................... ..................... ..................... ..................... ............... Order Picker Note From Sonny Sifuentes: SC08 dispatched to the address listed above [...] NVD. Patient [facility], received Toradol shot which helped and is looking to receive another dose of Toradol. Patient denies any kidney disease, denies allergies to NSAID, denies recent trauma, denies taking any blood thinners, denies taking Ibuprofen today. Patient reports that she took Tylenol earlier with minimal relief. Patient vital signs obtained as noted. [facility] consulted, provided orders for 15mg Toradol IM. 15mg Toradol IM administered in left deltoid without incident, six patient rights verified prior. Patient advised she can continue with ice/heat along with Tylenol for pain management. Patient advised that she contacted PCP and has appointment in January. Red flags discussed with patient and advised to call 911 if her condition worsens. SC08 Clear. [facility] Medication Orders: ketorolac 15 mg/mL injection solution: Administered ..................... ..................... ..................... ..................... ..................... ..................... ............... [facility] Consulted: Iliana Jules ..................... ..................... ..................... ..................... ..................... ..................... ............... Disposition: Fulfilled Iliana Jules MD [address] [place] [address],[address] [facility], [place], [place], [id number], [employer] 01/18/2025 17:38:11 01/29/2025 text/html ROS as noted in the [facility] Nurse Triage Notes (Yuko Evans): Reason For Request: Pt reporting shoulder [...] Osteoarthritis, Stroke, Depression PMH Reviewed at 01/29/2025 - 12:26 Allergies Reviewed at 01/29/2025 - 12:26 Comments: 79 y.o female complains of Extremity [...] signs of when to seek emergency care. Order Picker Organization Information for [facility] Business Legal Name: [employer]. Address: [address] [place] [address], Document Review Attorney: Gordon SCHMID No.: [id number] Order Picker POC Test Results from [facility] EKG (21:01:34) EKG test performed. Reason for missing picture: sinus without ectopy. Picture attached. ..................... ..................... ..................... ..................... ..................... ..................... ............... Order Picker Note From [facility]ina [facility]: SC2 dispatched to [address] [facility] for extremity pain. Pt c/o pain in [...] normal. Patients lower extremities show no edema. [facility] [place] consulted and the assessment was shared. An EKG was obtained. Pt was given 30mg of Ketorolac in her left deltoid. Pt advised to follow up with ortho for the fingers. SC2 clears without incident. [facility] Lab Orders: electrocardiogram: Performed [facility] Medication Orders: ketorolac 60 mg/2 mL intramuscular solution: Performed ..................... ..................... ..................... ..................... ..................... ..................... ............... [facility] Consulted: Elena Bello ..................... ..................... ..................... ..................... ..................... ..................... ............... Disposition: Fulfilled Elena Bello MD [address] [facility], [place], [address], [employer] 01/29/2025 22:02:12 OBGyn Episode No OBEpisode recorded.
--- OUTSIDE RECORDS SUMMARY | 2025-03-23 17:53 | XMS_ITS | Encounter Summary ---
Author Organization Formerly [facility] Address [address] [place] [address] Encounters * CPT with [facility] at [facility] on 2025-01-11 { reasonForRequest : finger and shoulder pain , patientReports : , denies :[ Vale Flash, circumferential vale , Vale reported with black tissue to the area , Open skin area after a fall with uncontrolled bleeding&quot ;, Abscess/infection with streaking noted, presence of fever or without ], chiefComplaints : Extremity Pain , pmh : Hypertension, Coronary Artery Disease,Osteoarthritis, Stroke , allergies : Codeine, Amoxicillin, Shellfish Derived&quo t;, otherAllergies :null, painAssessment : , visitOutcome : , additionalComments : 79 y.o female complains of Extremity Pain\nPatient calling reporting pain in her R fingers [...] to seek emergency care -Mona Blankenship RN } Dispatched to the above address for a 79 y/f with a cc of right shoulder pain. Proper ppe was worn throughout the call. Upon arrival: Pt AOx4 sitting in a fowlers position in the living room couch. Pt greeted [facility] and gave a verbal report. Pt stated that she has a hx of arthritis and for the past year has been having the same pain to her shoulder/knuckles. Pt stated that her PCP is aware and told to her drink Tylenol. Pt stated that the Tylenol does nothing to help her with the pain. Pt noted that she had PT initial ly when she started to have arthritis, but quickly stopped due to no help with pain. Pt noted that she was given Toradol 5 days ago which helped her for a couple of days, but now the pain is back. Ptnoted that her PCP did not want her [...] no crepitus. Pt denied to sob/chest pain/abd pain/dizziness/nausea/vomiting/blood in urine/difficulty urinating/fever/diarrhea/constipation/falls/head strikes/flu like symptoms. HEENT. skin in tact [...] - nose test normal, no neglect noted. [facility]: gave red flags/pt education. Pt was notified that todays visit will be sent over to pt PCP, and her PCP will be aware that Tylenol is not helping. Education given o home remedies/warm compress. MIH clear. All times approximate. IV_(FLUIDS_AND/OR_MEDICATION), MEDICATION_IM, ORAL_MEDICATION, WOUND_CARE, ORTHOSTATIC_VITAL_SIGNS Written by Medical [facility] on 2025-01-11
== END 2025-03-23 14:18 | disposition home or self-care (01) ==
LOC: HO.HSM 13:57
PROVIDERS: PCP Family Medicine; Visit Provider Registered Nurse
DX: Z86.73 Personal history of transient ischemic attack (TIA), and cerebral infarction without residual deficits (principal); G31.84 Mild cognitive impairment of uncertain or unknown etiology
CPT/HCPCS: 99214

== ENCOUNTER → 2025-03-23 13:57 | Outpatient (BNVA) | payer OTHER, SELFPAY | PROVIDERS: PCP Family Medicine; Visit Provider Registered Nurse | DX: G31.84 Mild cognitive impairment of uncertain or unknown etiology (principal); Z86.73 Personal history of transient ischemic attack (TIA), and cerebral infarction without residual deficits; Z79.899 Other long term (current) drug therapy | CPT/HCPCS: 99212 ==